=== PATIENT | female | born 1990 | race Caucasian/White ===

== ENCOUNTER 2024-11-23 11:52 | Outpatient (CLI) | payer OTHER, SELFPAY ==
[2024-11-23 12:18] LABS: Basophils Percent Auto 0.2 % (0.2-1.2); Eosinophils Absolute Auto 0.1 K/mm3 (0-0.3); Eosinophils Percent Auto 0.9 % (0-4.4); Hematocrit 34.2 % (37.0-47.0); Hemoglobin 10.8 g/dL (12.0-15.0); Immature Granulocyte Absolute 0.05 K/mm3 (0.00-0.031); Immature Granulocyte Percent A 0.8 % (0-0.5); Lymphocytes Absolute Auto 1.63 K/mm3 (0.9-3.2); Lymphocytes Percent Auto 25.4 % (18.3-44.2); Mean Corpuscular HGB Conc 31.6 g/dl (32-36); Mean Corpuscular Hemoglobin 27.7 pg (26-34); Mean Corpuscular Volume 87.7 fl (80-100); Mean Platelet Volume 11.8 fl (7.4-10.4); Monocytes Absolute Auto 0.3 K/mm3 (0.1-0.6); Monocytes Percent Auto 4.4 % (2.6-8.5); Neutrophils Absolute Auto 4.4 K/mm3 (1.3-6.7); Neutrophils Percent Auto 68.3 % (45.5-73.1); Platelet Count Result 186 k/mm3 (150-375); Red Cell Distribution Width 14.7 % (11.5-14.5); White Blood Count 6.4 K/mm3 (4.5-10.0)
[2024-11-23 13:06] LABS: Syphilis IgG/IgM Antibody Negative (Negative)
--- OUTSIDE RECORDS SUMMARY | 2024-11-23 13:32 | XMS_ITS | Clinical Summary ---
Author Organization [facility] Address [facility] [place] [address] Care Team Providers Care Motion Picture Set Grip Name Role Phone Darrin Rowell MD Primary Care Provider [phone] Allergies No known active allergies Medications sertraline (ZOLOFT) 100 MG tablet Take 100 mg by mouth every morning. 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 Pulse 83 08/20/2022 10:21 AM TOPOLOGY TEACHER Temperature 36.6 C (97.9 F) 08/20/2022 10:21 AM TOPOLOGY TEACHER Respiratory Rate 16 08/20/2022 10:21 AM TOPOLOGY TEACHER Oxygen Saturation 98% 08/20/2022 10:21 AM TOPOLOGY TEACHER Inhaled Oxygen Concentration - - Weight 65.8 kg (145 lb) 08/20/2022 10:21 AM TOPOLOGY TEACHER Height 152.4 cm (5') 08/20/2022 10:21 AM TOPOLOGY TEACHER Body Mass Index 28.32 08/20/2022 10:21 AM TOPOLOGY TEACHER Plan of Treatment Health Maintenance Due Date Last Done Comments Cervical Cancer Screening Pa p Smear (Age 30 to 64) Every 3 Years 1990 Annual Physical 1993 Hepatitis C 2008 DTaP, Tdap and Td Vaccines ( 1 - Tdap) 2009 Hepatitis B Vaccines (1 of 3 - 19+ 3-dose series) 2009 HPV Vaccines (2 - 3-dose SCD M series) 08/03/2019 07/06/2019 Cervical Cancer Screening Pa p with HPV Testing (Age 30 to 64) Every 5 Years 2020 Cervical Cancer Screening wi th HPV 2020 COVID-19 Vaccine (3 - 2023-2 5 season) 2024 09/13/2021, 08/16/2021 Meningococcal B Vaccine Aged Out No l onger eligible based on patient's age to complete this topic Meningococcal Vaccine Aged Out No joanna kim eligible based on patient's age to complete this topic Pneumococcal Vaccine: Pediatrics (0 to 5 Years) and At-Risk Patients (6 to 49 Years) Aged Out No longer eligible b ased on patient's age to complete this topic RSV Immunizations Under 20 Months Aged Out No longer eligible b ased on patient's age to complete this topic Insurance Care Teams Motion Picture Set Grip Relationship Specialty Start Date End Date Darrin Rowell MD [address] [place] [address] PCP - General FAMILY PRACTICE 08/20/22
--- OUTSIDE RECORDS SUMMARY | 2024-11-23 13:32 | XMS_ITS | Data Portability ---
Author Organization [facility] Address [address] [place] [address] Assessment Encounter Date Assessment Date Assessment LastModified by Organization Details LastModified Time 05/25/2021 05/25/2021 Sherrill barber Not available 05/25/2021 11:39:08 Plan of Treatment Reminders Order Date Submit Date Provider Last Modified By Organization Details Last Modified Time Details Appointments None recorded. Lab pap, IG + HPV, cervical - please use Z11.51 in addition to code above for HPV testing. [address] [facility], [address], [address] [address], [place], [address], 03:07:11 urinalysi s, dipstick 2020 elisabeth In-Office Order, Internal Use Only DO Not Attach Compendium DO Not Attach Compendium, Do Not Delete/merge, [id number] 16:49:28 bacterial vaginosis panel, vaginal [address] [facility] (Centralized Electronic Ordering - All Locations), Patient Can Go To The Location Of Their Choice, [id number] 16:11:09 culture, vaginal/r ectal, streptoco ccus group B [address] [facility] (Centralized Electronic Ordering - All Locations), Patient Can Go To The Location Of Their Choice, [id number] 16:11:10 CT + NG + TV, DNA, urine/swa b [address] [facility], [address] [facility], [address], [place], [address], 9 20:07:40 urinalysi s, dipstick [facility] Order, Internal Use Only DO Not Attach Compendium DO Not Attach Compendium, Do Not Delete/merge, [id number] 9 17:28:09 test, urine 2018 019 [facility] In-Office Order, Internal Use Only DO Not Attach Compendium DO Not Attach Compendium, Do Not Delete/merge, [id number] 9 17:28:09 pap, IG + HPV, cervical 2018 [facility], [address] [facility], [address], [place], [address], 0 14:40:47 pap, IG + HPV, cervical - please use Z11.51 in addition to code above for HPV testing. 2018 019 [place] [facility], [address], [address] [place] [address], [place], [address], 9 11:39:12 test, urine [address] In-Office Order, Internal Use Only DO Not Attach Compendium DO Not Attach Compendium, Do Not Delete/merge, [id number] 9 10:44:39 bacterial vaginosis panel, vaginal [address] [facility] (Centralized Electronic Ordering - All Locations), Patient Can Go To The Location Of Their Choice, 9 11:38:42 culture, vaginal/r ectal, streptoco ccus group B [address] [facility] (Centralized Electronic Ordering - All Locations), Patient Can Go To The Location Of Their Choice, 9 11:38:43 pap, IG + HPV, cervical [address] [facility], [address], [address], [place], [address], 8 14:13:21 urinalysi s, dipstick 2017 018 elisabeth In-Office Order, Internal Use Only DO Not Attach Compendium DO Not Attach Compendium, Do Not Delete/merge, [id number] 8 13:34:04 test, urine 2017 018 elisabeth In-Office Order, Internal Use Only DO Not Attach Compendium DO Not Attach Compendium, Do Not Delete/merge, [id number] 8 13:34:04 bacterial vaginosis + vaginitis panel, vaginal - Z11.3, Z20.[address] [facility], Maribel joelle Kwame, [address], [place], [address], 8 08:29:38 HSV (1+2) DNA, qual, PCR, unspecifi ed specimen - Z11.3, Z20.[address] [facility], [address] [place], [place] [address]yovana Kwame, [address], [place], [address], 8 08:29:39 culture, vaginal/r ectal, streptoco ccus group B - Z11.3, Z20.[address] [facility], [facility], [address], [place], [address], 8 08:29:39 Referral None recorded. Procedures None recorded. Surgeries None recorded. Imaging None recorded. Medication Orders sertralin e 100 mg tablet 2020 [address] [place] [facility] [address] [facility], [address] [place] [address], [address], 1 11:38:30 buspirone 10 mg tablet [address] [facility] [address] [facility], [address] [place] [address], [address], 1 11:38:29 multivita min tablet [address] [facility] [address] [facility], [address] [place] [address], [address], 03:32:24 Calcium with Vitamin D 600 mg-10 mcg (400 unit) tablet 2020 021 [facility] [address] [facility], [address] [place] [address], [address], 16:49:28 multivita min tablet 2018 019 [facility] [address] [facility], [address] [place] [address], [address], 9 17:28:13 Calcium with Vitamin D 600 mg-10 mcg (400 unit) tablet 2018 [address] [facility] [address], [address], 9 17:28:14 RepHresh vaginal gel 2018 [address] [facility] [address] [facility], [address] [place] [address], [address], 1 10:52:19 RepHresh Pro-B 2.5 billion cell capsule 2018 019 [facility] [address] [facility], [address] [place] [address], [address], 1 10:52:16 multivita min tablet 2018 0[address] [facility] [address], [address], 9 16:13:52 Calcium with Vitamin D 600 mg-10 mcg (400 unit) tablet 2018 019 [facility] [address], [address], 9 16:13:51 calcium 600 mg (as carbonate )-vitamin D3 20 mcg (800 unit) tablet 2017 018 [facility] [address], [address], 1 10:52:12 multivita min tablet 2017 018 [facility]FACE [facility] [address], [address], 8 12:00:46 Patient TargetsNo targets recorded. Patient Instructions Encounter Date Encounter Id Patient Instructions Last Modified By Organization Details Last Modified Time 01/29/2018 [id number] Patient advised to relax pubococcygeus muscle during intercourse. elisabeth Not available 01/29/2018 12:40:49 05/25/2021 [id number] anxiety disorder : care instructions elisabeth Not available 05/25/2021 11:38:20 Call back after the first of the month to discuss how anxiety medications are working for you. faniasserman Not available 05/25/2021 11:38:11 Reason for Referral None Reported. Results Created Date Observation Date Name Description Value Unit Range Abnormal Flag Note LastModifiedBy Organization Detail LastModifiedTime 05/25/2005/25/2021 urina lysis , dipst ick Leukocytes Negati ve Not Available In-Office Order Internal Use Only DO Not Attach Compendium DO Not Attach Compendium, Do Not Delete/merge, [id number] 05/25/2021 11:22:25 05/25/2005/25/2021 urina lysis , dipst ick Nitrite negati ve Not Available In-Office Order Internal Use Only DO Not Attach Compendium DO Not Attach Compendium, Do Not Delete/merge, [id number] 05/25/2021 11:22:25 05/25/2005/25/2021 urina lysis , dipst ick Urobilinogen .2 Not Available In-Of fice Order Internal Use Only DO Not Attach Compendium DO Not Attach Compendium, Do Not Delete/merge, [id number] 05/25/2021 11:22:25 05/25/2005/25/2021 urina lysis , dipst ick Protein Negati ve Not Available In-Office Order Internal Use Only DO Not Attach Compendium DO Not Attach Compendium, Do Not Delete/merge, [id number] 05/25/2021 11:22:25 05/25/2005/25/2021 urina lysis , dipst ick pH 8.0 Not Available In-Office Order Internal Use Only DO Not Attach Compendium DO Not Attach Compendium, Do Not Delete/merge, [id number] 05/25/2021 11:22:25 05/25/2005/25/2021 urina lysis , dipst ick Blood Non-He molyze d: Trace Not Available In-Office Order Internal Use Only DO Not Attach Compendium DO Not Attach Compendium, Do Not Delete/merge, [id number] 05/25/2021 11:22:25 05/25/2005/25/2021 urina lysis , dipst ick Specific [place] 1.020 Not Available In-Off ice Order Internal Use Only DO Not Attach Compendium DO Not Attach Compendium, Do Not Delete/merge, [id number] 05/25/2021 11:22:25 05/25/2005/25/2021 urina lysis , dipst ick Ketone Negati ve Not Available In-Office Order Internal Use Only DO Not Attach Compendium DO Not Attach Compendium, Do Not Delete/merge, [id number] 05/25/2021 11:22:25 05/25/2005/25/2021 urina lysis , dipst ick Bilirubin Negati ve Not Available In-Office Order Internal Use Only DO Not Attach Compendium DO Not Attach Compendium, Do Not Delete/merge, [id number] 05/25/2021 11:22:25 05/25/20 21 05/25/2021 urina lysis , dipst ick Glucose Negati ve Not Available In-Office Order Internal Use Only DO Not Attach Compendium DO Not Attach Compendium, Do Not Delete/merge, [id number] 05/25/2021 11:22:25 07/06/20 19 07/06/2019 pregn carmen test, urine HCG negati ve Not Available In-Office Order Internal Use Only DO Not Attach Compendium DO Not Attach Compendium, Do Not Delete/merge, [id number] 07/06/2019 16:44:45 07/06/20 19 07/06/2019 urina lysis , dipst ick Leukocytes Negati ve Not Available In-Office Order Internal Use Only DO Not Attach Compendium DO Not Attach Compendium, Do Not Delete/merge, [id number] 07/06/2019 16:37:03 07/06/20 19 07/06/2019 urina lysis , dipst ick Nitrite negati ve Not Available In-Office Order Internal Use Only DO Not Attach Compendium DO Not Attach Compendium, Do Not Delete/merge, [id number] 07/06/2019 16:37:03 07/06/20 19 07/06/2019 urina lysis , dipst ick Urobilinogen .2 Not Available In-Of fice Order Internal Use Only DO Not Attach Compendium DO Not Attach Compendium, Do Not Delete/merge, [id number] 07/06/2019 16:37:03 07/06/20 19 07/06/2019 urina lysis , dipst ick Protein Negati ve Not Available In-Office Order Internal Use Only DO Not Attach Compendium DO Not Attach Compendium, Do Not Delete/merge, [id number] 07/06/2019 16:37:03 07/06/20 19 07/06/2019 urina lysis , dipst ick pH 6.0 Not Available In-Office Order Internal Use Only DO Not Attach Compendium DO Not Attach Compendium, Do Not Delete/merge, [id number] 07/06/2019 16:37:03 07/06/20 19 07/06/2019 urina lysis , dipst ick Blood Modera te Not Available In-Office Order Internal Use Only DO Not Attach Compendium DO Not Attach Compendium, Do Not Delete/merge, [id number] 07/06/2019 16:37:03 07/06/20 19 07/06/2019 urina lysis , dipst ick Specific [place] 1.005 Not Available In-Off ice Order Internal Use Only DO Not Attach Compendium DO Not Attach Compendium, Do Not Delete/merge, [id number] 07/06/2019 16:37:03 07/06/20 19 07/06/2019 urina lysis , dipst ick Ketone Negati ve Not Available In-Office Order Internal Use Only DO Not Attach Compendium DO Not Attach Compendium, Do Not Delete/merge, [id number] 07/06/2019 16:37:03 07/06/20 19 07/06/2019 urina lysis , dipst ick Bilirubin Negati ve Not Available In-Office Order Internal Use Only DO Not Attach Compendium DO Not Attach Compendium, Do Not Delete/merge, [id number] 07/06/2019 16:37:03 07/06/20 19 07/06/2019 urina lysis , dipst ick Glucose Negati ve Not Available In-Office Order Internal Use Only DO Not Attach Compendium DO Not Attach Compendium, Do Not Delete/merge, [id number] 07/06/2019 16:37:03 01/30/20 18 01/29/2018 urina lysis , dipst ick Leukocytes Negati ve Not Available In-Office Order Internal Use Only DO Not Attach Compendium DO Not Attach Compendium, Do Not Delete/merge, [id number] 01/29/2018 13:01:43 01/30/20 18 01/29/2018 urina lysis , dipst ick Nitrite negati ve Not Available In-Office Order Internal Use Only DO Not Attach Compendium DO Not Attach Compendium, Do Not Delete/merge, [id number] 01/29/2018 13:01:43 01/30/20 18 01/29/2018 urina lysis , dipst ick Urobilinogen .2 Not Available In-Of fice Order Internal Use Only DO Not Attach Compendium DO Not Attach Compendium, Do Not Delete/merge, [id number] 01/29/2018 13:01:43 01/30/20 18 01/29/2018 urina lysis , dipst ick Protein Negati ve Not Available In-Office Order Internal Use Only DO Not Attach Compendium DO Not Attach Compendium, Do Not Delete/merge, 01/29/2018 13:01:43 01/30/20 18 01/29/2018 urina lysis , dipst ick pH 6.0 Not Available In-Office Order Internal Use Only DO Not Attach Compendium DO Not Attach Compendium, Do Not Delete/merge, 01/29/2018 13:01:43 01/30/20 18 01/29/2018 urina lysis , dipst ick Blood Hemoly zed: Trace Not Available In-Office Order Internal Use Only DO Not Attach Compendium DO Not Attach Compendium, Do Not Delete/merge, 01/29/2018 13:01:43 01/30/20 18 01/29/2018 urina lysis , dipst ick Specific [place] 1.020 Not Available In-Off ice Order Internal Use Only DO Not Attach Compendium DO Not Attach Compendium, Do Not Delete/merge, 01/29/2018 13:01:43 01/30/20 18 01/29/2018 urina lysis , dipst ick Ketone Negati ve Not Available In-Office Order Internal Use Only DO Not Attach Compendium DO Not Attach Compendium, Do Not Delete/merge, 01/29/2018 13:01:43 01/30/20 18 01/29/2018 urina lysis , dipst ick Bilirubin Negati ve Not Available In-Office Order Internal Use Only DO Not Attach Compendium DO Not Attach Compendium, Do Not Delete/merge, 01/29/2018 13:01:43 01/30/20 18 01/29/2018 urina lysis , dipst ick Glucose Negati ve Not Available In-Office Order Internal Use Only DO Not Attach Compendium DO Not Attach Compendium, Do Not Delete/merge, 01/29/2018 13:01:43 01/30/20 18 01/31/2018 pap, IG + HPV, cervi chandni diagnosis: COMMEN T NEGAT GREGORIO FOR INTRA EPITH ELIAL LESIO N AND CRUZ AWAD . Not Available [facility] ([facility] [address] [place], [address], 01/31/2018 14:13:21 01/30/20 18 01/31/2018 pap, IG + HPV, cervi chandni specimen adequacy: RUY Rock Satis facto ry for evalu ation . Endoc ervic al and/o r squam ous metap lasti c cells (endo cervi chandni compo nent) are prese nt. Not Available [facility] ([facility]) [address] [place], [address], 01/31/2018 14:13:21 01/30/20 18 01/31/2018 pap, IG + HPV, cervi chandni clinician provided ICD10: RUY Rock Z20.2 Z01.4 19 Not Available [facility] ([facility]) [address] [place], [address], 01/31/2018 14:13:21 01/30/20 18 01/31/2018 pap, IG + HPV, cervi chandni performed by: RUY Jamison , Cytot gaudencio mcintosh t (ASCP ) Not Available [facility] ([facility]) [address] [place], [address], 01/31/2018 14:13:21 01/30/20 18 01/31/2018 pap, IG + HPV, cervi chandni . . Not Available [facility] ([facility]) [address] [place], [address], 01/31/2018 14:13:21 01/30/20 18 01/31/2018 pap, IG + HPV, cervi chandni note: RUY Rock The Pap smear is a scree nettie test desig chanelle to aid in the detec tion of gabriela ligna nt and malig nant condi tions of the uteri ne cervi x. It is not a diagn ostic proce dure and shoul d not be used as the sole means of detec ting cervi chandni cance r. Both false -posi tive and false -nega tive repor ts do occur . Not Available [facility] ([facility]) [address] [facility], [place], [address], 01/31/2018 14:13:21 01/30/20 18 01/31/2018 pap, IG + HPV, cervi chandni test methodology: COMMEN T This liqui d based ThinP rep(R ) pap test was scree chanelle with the use of an image guide quinton cheatham. Not Available [facility] ([facility]) [address] [facility], [place], [address], 01/31/2018 14:13:21 01/30/20 18 01/31/2018 pap, IG + HPV, cervi chandni HPV aptima NEGATI VE negati ve This test detec ts fourt een high- risk HPV types (16/1 8/31/ 33/35 /39/4 5/ 51/52 /56/5 8/59/ 66/68 ) witho ut diffe renti ation . Not Available [facility] ([facility]) [address] [facility], [place], [address], 01/31/2018 14:13:21 01/30/20 18 02/07/2018 bacte rial vagin osis + vagin itis panel , vagin al atopobium vaginae LOW - 0 score Not Available [facility] ([facility]) [address] [place], [address], 02/07/2018 08:29:38 01/30/20 18 02/07/2018 bacte rial vagin osis + vagin itis panel , vagin al bvab 2 LOW - 0 score Not Available [facility] ([facility]) [address] [place], [address], 02/07/2018 08:29:38 01/30/20 18 02/07/2018 bacte rial vagin osis + vagin itis panel , vagin al megasphaera 1 LOW - 0 score Calcu late total score by addin g the 3 indiv idual bacte rial vagin osis (BV) marke r score s toget her. Total score is inter prete d as follo ws: Total score 0-1: Indic ates the absen ce of BV. Total score 2: Indet ermin ate for BV. Addit ional clini chandni data shoul d be evalu ated to estab vadim a diagn osis. Total score 3-6: Indic ates the prese nce of BV. This test was devel oped and its perfo rmanc e itzel cteri stics deter mined by [employer]. It has not been clear ed or appro claus by the Food and Drug Admin istra tion. The FDA has deter mined that such clear ance or appro francisca is not neces heather. Not Available [facility] ([facility]) [address] [place], [address], 02/07/2018 08:29:38 01/30/20 18 02/07/2018 bacte rial vagin osis + vagin itis panel , vagin al justin albicans, YISSEL NEGATI VE negati ve Not Available [facility] ([facility]) [address] [place], [address], 02/07/2018 08:29:38 01/30/20 18 02/07/2018 bacte rial vagin osis + vagin itis panel , vagin al justin glabrata, YISSEL NEGATI VE negati ve This test was devel oped and its perfo rmanc e itzel cteri stics deter mined by Amanda Huff [employer]. It has not been clear ed or appro claus by the Food and Drug Admin istra tion. The FDA has deter mined that such clear ance or appro francisca is not neces heather. Not Available [facility] ([facility]) [address] [place], [address], 02/07/2018 08:29:38 01/30/20 18 02/07/2018 bacte rial vagin osis + vagin itis panel , vagin al trich vag by YISSEL NEGATI VE negati ve Not Available [facility] ([facility]) [address] [facility], [place], [address], 02/07/2018 08:29:38 01/30/20 18 02/07/2018 bacte rial vagin osis + vagin itis panel , vagin al chlamydia trachomatis, YISSEL NEGATI VE negati ve Not Available [facility] ([facility]) [address] [facility], [place], [address], 02/07/2018 08:29:38 01/30/20 18 02/07/2018 bacte rial vagin osis + vagin itis panel , vagin al neisseria gonorrhoeae, YISSEL NEGATI VE negati ve Not Available [facility] ([facility]) [address] [facility], [place], [address], 02/07/2018 08:29:38 01/30/20 18 01/31/2018 HSV (1+2) DNA, qual, PCR, unspe cifie d speci men hsv 1 YISSEL NEGATI VE negati ve Not Available [facility] ([facility]) [address] [facility], [place], [address], 02/07/2018 08:29:39 01/30/20 18 01/31/2018 HSV (1+2) DNA, qual, PCR, unspe cifie d speci men hsv 2 YISSEL NEGATI VE negati ve Not Available [facility] ([facility]) [address] [place], [address], 02/07/2018 08:29:39 01/30/20 18 01/31/2018 cultu re, vagin al/re ctal, strep tococ cus group B strep gp B YISSEL NEGATI VE negati ve Cente rs for Disea se Contr ol and Preve ntion (CDC) and Ameri can Congr ess of Obste trici ans and Gynec ologi sts (ACOG ) guide lines for preve ntion of perin atal group B strep tococ chandni (GBS) disea se speci fy co-co llect ion of a vagin al and recta l swab speci men to maxim ize sensi tivit y of GBS detec tion. Per the CDC and ACOG, swabb ing both the lower vagin a and rectu m subst antia lly incre ases the yield of detec tion traci red with sampl ing the vagin a alone . Penic illin G, ampic illin , or cefaz dwain are indic ated for intra partu m proph ylaxi s of perin atal GBS colon izati on. Refle x susce ptibi lity testi ng shoul d be perfo rmed prior to use of clind amyci n only on GBS isola kenrick from penic illin -sandro rgic women who are consi dered a high risk for anaph ylaxi s. Treat ment with vanco mycin witho ut addit ional testi ng is warra nted if resis tance to clind amyci n is noted . Not Available [facility] ([facility]) [address] [facility], [place], [address], 02/07/2018 08:29:39 01/30/20 18 01/29/2018 pregn carmen test, urine HCG negati ve Not Available In-Office Order Internal Use Only DO Not Attach Compendium DO Not Attach Compendium, Do Not Delete/merge, [id number] 01/29/2018 13:01:45 04/28/20 19 04/30/2019 pap, IG + HPV, cervi chandni diagnosis: COMMEN T NEGAT GREGORIO FOR INTRA EPITH ELIAL LESIO N OR CRUZ AWAD . Not Available [facility] ([facility]) [address] [facility], [place], [address], 04/30/2019 11:39:12 04/28/20 19 04/30/2019 pap, IG + HPV, cervi chandni specimen adequacy: COMMEN T Satis facto ry for evalu ation . Endoc ervic al and/o r squam ous metap lasti c cells (endo cervi chandni compo nent) are prese nt. Not Available [facility] ([facility]) [address] [facility], [place], [address], 04/30/2019 11:39:12 04/28/20 19 04/30/2019 pap, IG + HPV, cervi chandni clinician provided ICD10: RUY Rock Z01.4 19 Z11.5 1 Z20.2 Not Available [facility] ([facility]) [address] [place], [address], 04/30/2019 11:39:12 04/28/20 19 04/30/2019 pap, IG + HPV, cervi chandni performed by: RUY rock, Cytot gaudencio mcintosh t (ASCP ) Not Available [facility] ([facility]) [address] [place], [address], 04/30/2019 11:39:12 04/28/2004/30/2019 pap, IG + HPV, cervi chandni . . Not Available [facility] ([facility]) [address] [place], [address], 04/30/2019 11:39:12 04/28/2004/30/2019 pap, IG + HPV, cervi chandni note: RUY Rock The Pap smear is a scree nettie test desig chanelle to aid in the detec tion of gabriela ligna nt and malig nant condi tions of the uteri ne cervi x. It is not a diagn ostic proce dure and shoul d not be used as the sole means of detec ting cervi chandni cance r. Both false -posi tive and false -nega tive repor ts do occur . Not Available [facility] ([facility]) [address] [place], [address], 04/30/2019 11:39:12 04/28/2004/30/2019 pap, IG + HPV, cervi chandni test methodology: RUY Rock This liqui d based ThinP rep(R ) pap test was scree chanelle with the use of an image guide quinton cheatham. Not Available [facility] ([facility]) [address] [place], [address], 04/30/2019 11:39:12 04/28/20 19 04/30/2019 pap, IG + HPV, cervi chandni HPV aptima POSITI VE negati ve abnormal This test detec ts fourt een high- risk HPV types (16/1 8/31/ 33/35 /39/4 5/ 51/52 /56/5 8/59/ 66/68 ) witho cedric peguero . Not Available [facility] ([facility]) [address] [place], [address], 04/30/2019 11:39:12 04/28/20 19 04/30/2019 bacte rial vagin osis panel , vagin al chlamydia trachomatis, YISSEL POSITI VE negati ve abnormal Not Available [facility] ([facility]) [address] [place], [address], 05/01/2019 11:38:42 04/28/20 19 04/30/2019 bacte rial vagin osis panel , vagin al neisseria gonorrhoeae, YISSEL NEGATI VE negati ve Not Available [facility] ([facility]) [address] [place], [address], 05/01/2019 11:38:42 04/28/20 19 05/01/2019 bacte rial vagin osis panel , vagin al atopobium vaginae LOW - 0 score Not Available [facility] ([facility]) [address] [place], [address], 05/01/2019 11:38:42 04/28/2005/01/2019 bacte rial vagin osis panel , vagin al bvab 2 LOW - 0 score Not Available [facility] ([facility]) [address] [place], [address], 05/01/2019 11:38:42 04/28/20 19 05/01/2019 bacte rial vagin osis panel , vagin al megasphaera 1 LOW - 0 score Calcu late total score by carlos chapman the 3 indiv idual bacte rial vagin osis (BV) marke r score s toget her. Total score is inter prete d as follo ws: Total score 0-1: Indic ates the absen ce of BV. Total score 2: Indet ermin ate for BV. Addit ional clini chandni data shoul d be evalu ated to estab vadim a diagn osis. Total score 3-6: Indic ates the prese nce of BV. This test was devel oped and its perfo rmanc e itzel cteri stics deter mined by Amanda Huff [employer]. It has not been clear ed or appro claus by the Food and Drug Admin istra tion. The FDA has deter mined that such clear ance or appro francisca is not neces heather. Not Available [facility] ([facility]) [address] [place], [address], 05/01/2019 11:38:42 04/28/2005/01/2019 bacte rial vagin osis panel , vagin al justin albicans, YISSEL NEGATI VE negati ve Not Available [facility] ([facility]) [address] [place], [address], 05/01/2019 11:38:42 04/28/2005/01/2019 bacte rial vagin osis panel , vagin al justin glabrata, YISSEL NEGATI VE negati ve This test was devel oped and its perfo rmanc e itzel cteri stics deter mined by Amanda Huff DBA [employer]. It has not been clear ed or appro claus by the Food and Drug Admin istra tion. The FDA has deter mined that such clear ance or appro francisca is not neces heather. Not Available [facility] ([facility]) [address] [place], [address], 05/01/2019 11:38:42 04/28/2005/01/2019 bacte rial vagin osis panel , vagin al trich vag by YISSEL NEGATI VE negati ve Not Available [facility] ([facility]) [address] [facility], [place], [address], 05/01/2019 11:38:42 04/28/2005/01/2019 bacte rial vagin osis panel , vagin al hsv 1 YISSEL NEGATI VE negati ve Not Available [facility] ([facility]) [address] [facility], [place], [address], 05/01/2019 11:38:42 04/28/2005/01/2019 bacte rial vagin osis panel , vagin al hsv 2 YISSEL NEGATI VE negati ve Not Available [facility] ([facility]) [address] [facility], [place], [address], 05/01/2019 11:38:42 04/28/2004/30/2019 cultu re, vagin al/re ctal, strep tococ cus group B strep gp B YISSEL POSITI VE negati ve abnormal Cente rs for Disea se Contr ol and Preve ntion (CDC) and Ameri can Congr ess of Obste trici ans and Gynec ologi sts (ACOG ) guide lines for preve ntion of perin atal group B strep tococ chandni (GBS) disea se speci fy co-co llect ion of a vagin al and recta l swab speci men to maxim ize sensi tivit y of GBS detec tion. Per the CDC and ACOG, swabb ing both the lower vagin a and rectu m subst antia lly incre ases the yield of detec tion traci red with sampl ing the vagin a alone . Penic illin G, ampic illin , or cefaz dwain are indic ated for intra partu m proph ylaxi s of perin atal GBS colon izati on. Refle x susce ptibi lity testi ng shoul d be perfo rmed prior to use of clind amyci n only on GBS isola kenrick from penic illin -sandro rgic women who are consi dered a high risk for anaph ylaxi s. Treat ment with vanco mycin witho ut addit ional testi ng is warra nted if resis tance to clind kelsey n is noted . Not Available [facility] ([facility]) [address] [place], [address], 05/01/2019 11:38:43 05/01/20 19 05/01/2019 pregn carmen test, urine HCG negati ve Not Available In-Office Order Internal Use Only DO Not Attach Compendium DO Not Attach Compendium, Do Not Delete/merge, [id number] 04/28/2019 16:21:31 07/07/20 19 07/08/2019 CT + NG + TV, DNA, urine /swab chlamydia by YISSEL NEGATI VE negati ve Not Available [facility] ([facility]) [address] [facility], [place], [address], 07/08/2019 20:07:40 07/07/20 19 07/08/2019 CT + NG + TV, DNA, urine /swab gonococcus by YISSEL NEGATI VE negati ve Not Available [facility] ([facility]) [address] [facility], [place], [address], 07/08/2019 20:07:40 07/07/20 19 07/08/2019 CT + NG + TV, DNA, urine /swab trich vag by YISSEL NEGATI VE negati ve Not Available [facility] ([facility]) [address] [place], [address], 07/08/2019 20:07:40 05/25/20 21 05/29/2021 IGP, APTIM A HPV diagnosis: Commen t NEGAT GREGORIO FOR INTRA EPITH ELIAL LESIO N OR CRUZ AWAD . Not Available [facility] ([facility]) [address] [place], [address], 05/30/2021 03:07:10 05/25/20 21 05/29/2021 IGP, APTIM A HPV specimen adequacy: Commen t Satis facto ry for evalu ation . No endoc ervic al compo nent is ident ified . Not Available [facility] ([facility]) [address] [place], [address], 05/30/2021 03:07:10 05/25/2005/29/2021 IGP, APTIM A HPV clinician provided ICD10: Ruy rock Z01.4 19 Z11.5 1 Not Available [facility] ([facility]) [address] [place], [address], 05/30/2021 03:07:10 05/25/2005/29/2021 IGP, APTIM A HPV performed by: Ruy palmer, Reynaldo rokc (ASCP ) Not Available [facility] ([facility]) [address] [place], [address], 05/30/2021 03:07:10 05/25/2005/29/2021 IGP, APTIM A HPV . . Not Available [facility] ([facility]) [address] [place], [address], 05/30/2021 03:07:10 05/25/2005/29/2021 IGP, APTIM A HPV note: Ruy rock The Pap smear is a scree nettie test desig chanelle to aid in the detec tion of gabriela ligna nt and malig nant condi tions of the uteri ne cervi x. It is not a diagn ostic proce dure and shoul d not be used as the sole means of detec ting cervi chandni cance r. Both false -posi tive and false -nega tive repor ts do occur . Not Available [facility] ([facility]) [address] [place], [address], 05/30/2021 03:07:10 05/25/2005/29/2021 IGP, APTIM A HPV test methodology: Ruy rock This liqui d based ThinP rep(R ) pap test was scree chanelle with the use of an image guide d systartis m. Not Available [facility] ([facility]) [address] [facility], [place], [address], 05/30/2021 03:07:10 05/25/2005/29/2021 IGP, APTIM A HPV HPV aptima Positi ve negati ve abnormal This nucle ic acid ampli ficat ion test detec ts fourt een high- risk HPV types (16,1 8,31, 33,35 ,39,4 5,51, 52,56 ,58,5 9,66, 68) witho ut diffe renti ation . Not Available [facility] ([facility]) [address] [facility], [place], [address], 05/30/2021 03:07:10 05/25/2005/30/2021 NUSWA B VG+, HSV atopobium vaginae Low - 0 score Not Available [facility] ([facility]) [address] [facility], [place], [address], 06/01/2021 16:11:09 05/25/2005/30/2021 NUSWA B VG+, HSV bvab 2 Low - 0 score Not Available [facility] ([facility]) [address] [facility], [place], [address], 06/01/2021 16:11:09 05/25/2005/30/2021 NUSWA B VG+, HSV megasphaera 1 Low - 0 score Calcu late total score by carlos g the 3 indiv idual bacte rial vagin osis (BV) marke r score s toget her. Total score is inter prete d as follo ws: Total score 0-1: Indic ates the absen ce of BV. Total score 2: Indet ermin ate for BV. Addit ional clini chandni data shoul d be evalu ated to estab vadim a diagn osis. Total score 3-6: Indic ates the prese nce of BV. This test was devel oped and its perfo rmanc e itzel cteri stics deter mined by [employer]. It has not been clear ed or appro claus by the Food and Drug Admin istra tion. Not Available [facility] ([facility]) [address] [place], [address], 06/01/2021 16:11:09 05/25/2005/30/2021 NUSWA B VG+, HSV justin albicans, YISSEL Negati ve negati ve Not Available [facility] ([facility]) [address] [place], [address], 06/01/2021 16:11:09 05/25/2005/30/2021 NUSWA B VG+, HSV justin glabrata, YISSEL Negati ve negati ve Not Available [facility] ([facility]) [address] [place], [address], 06/01/2021 16:11:09 05/25/2005/31/2021 NUSWA B VG+, HSV hsv 1 YISSEL Negati ve negati ve Not Available [facility] ([facility]) [address] [place], [address], 06/01/2021 16:11:09 05/25/2005/31/2021 NUSWA B VG+, HSV hsv 2 YISSEL Negati ve negati ve Not Available [facility] ([facility]) [address] [place], [address], 06/01/2021 16:11:09 05/25/2006/01/2021 NUSWA B VG+, HSV trich vag by YISSEL Negati ve negati ve Not Available [facility] ([facility]) [address] [place], [address], 06/01/2021 16:11:09 05/25/2006/01/2021 NUSWA B VG+, HSV chlamydia trachomatis, YISSEL Negati ve negati ve Not Available [facility] ([facility]) [address] [place], [address], 06/01/2021 16:11:09 05/25/2006/01/2021 NUSWA B VG+, HSV neisseria gonorrhoeae, YISSEL Negati ve negati ve Not Available [facility] ([facility]) [address] [facility], [place], [address], 06/01/2021 16:11:09 05/25/2005/27/2021 STREP GP B YISSEL strep gp B YISSEL Negati ve negati ve Cente rs for Disea se Contr ol and Preve ntion ([facility]) and Alexandra can Congr ess of Obste trici ans and Gynec ologi sts (ACOG ) guide lines for preve ntion of perin atal group B strep tococ chandni (GBS) disea se speci fy co-co llect ion of a vagin al and recta l swab speci men to maxim ize sensi tivit y of GBS detec tion. Per the CDC and ACOG, swabb ing both the lower vagin a and rectu m subst antia lly incre ases the yield of detec tion traci red with sampl ing the vagin a alone . Penic illin G, ampic illin , or cefaz dwain are indic ated for intra partu m proph ylaxi s of perin atal GBS colon izati on. Refle x susce ptibi lity testi ng shoul d be perfo rmed prior to use of clind amyci n only on GBS isola kenrick from penic illin -sandro rgic women who are consi dered a high risk for anaph ylaxi s. Treat ment with vanco mycin witho ut addit ional testi ng is warra nted if resis tance to clind amyci n is noted . Not Available [facility] ([facility]) [address] [facility], [place], [address], 06/01/2021 16:11:10 Result Notes None recorded. Problems No Known Problems Procedures Surgical History Date Name Laterality Status Provider Name and Address Organization Details Recorded Time Date of Last Pap Smear completed Karine Iraheta [place] - [facility] 05/25/2021 10:50:34 1 Caesarean Section completed Carline Brown MA [place] - [facility] 01/29/2018 11:52:49 Imaging Results None recorded. Procedure Notes None recorded. Medical Equipment None Reported. Allergies Allergen ID Allergen Name Allergen Category Reaction Reaction Severity Criticality Documentation Date Start Date Code Code System Note Provider Name and Address Organization Details Recorded Time 948564 Tamiflu medicatio n rash Not available Not available 04/28/2019 63260 7 RxNorm Not Available Not Available Not Available Medications Name Sig Start Date Stop Date Status Note LastModified by Organization Details LastModified Time multivitami n tablet Take 1 tablet every day by oral route. 2020 active Not Available Not Available Not Avai lable azithromyci n 250 mg tablet TAKE 2 TABLETS (500 MG TOTAL) BY ORAL ROUTE ONCE DAILY FOR 1 DAY THEN 1 TABLET (250 MG) BY ORAL ROUTE ONCE DAILY FOR 4 DAYS 07/06 completed Not Available Not Available Not Available sertraline 100 mg tablet Take 1 tablet every day by oral route in the morning. 2020 active Not Available Not Available Not Avai lable buspirone 10 mg tablet Take 1 tablet twice a day by oral route. 2020 active Not Available Not Available Not Avai lable diazepam 10 mg tablet TAKE 1 TABLET BY MOUTH AT BEDTIME THEN 1 TABLET 1 HOUR BEFORE APPOINTME NT 05/25 completed Not Available Not Available Not Available RepHresh vaginal gel Insert 1 g as needed by vaginal route. 05/25 completed Not Available Not Available Not Available Calcium with Vitamin D 600 mg-10 mcg (400 unit) tablet Take 1 tablet twice a day by oral route. 2020 active Not Available Not Available Not Avai lable RepHresh Pro-B 2.5 billion cell capsule Take 1 capsule every day by oral route. 05/25 completed Not Available Not Available Not Available calcium 600 mg (as carbonate)- vitamin D3 20 mcg (800 unit) tablet Take 1 tablet twice a day by oral route. 05/25 completed Not Available Not Available Not Available Vitals Date Recorded Body height Body mass index (BMI) Body weight Systolic blood pressure Diastolic blood pressure Provider Name and Address Organization Details Last Updated DateTime 01/29/2018 152.4 cm 28.1 kg/m2 35498.3 g 118 mm[Hg] 80 mm[Hg] Carline Brown MA [facility] 8 11:53:25 Date Recorded Body weight Body mass index (BMI) Body height Systolic blood pressure Diastolic blood pressure Provider Name and Address Organization Details Last Updated DateTime 04/28/2019 22747.52 g 27.5 kg/m2 152.4 cm 118 mm[Hg] 72 mm[Hg] Kory Alarcon [facility] 9 15:58:01 Date Recorded Body height Body mass index (BMI) Body weight Systolic blood pressure Diastolic blood pressure Provider Name and Address Organization Details Last Updated DateTime 07/06/2019 152.4 cm 27.7 kg/m2 44908.12 g 120 mm[Hg] 72 mm[Hg] Karine Iraheta MA [facility] 9 16:38:37 Date Recorded Body weight Systolic blood pressure Diastolic blood pressure Provider Name and Address Organization Details Last Updated DateTime 05/25/2021 33494.49 g 122 mm[Hg] 70 mm[Hg] Karine Iraheta MA [facility] 05/25/2021 10:49:23 Social History Question Answer Notes LastModified by Organizat ion Details LastModified Time Tobacco Smoking Status Never Smoker Carline Brown MA [facility], [facility] 01/29/2018 11:50:53 Do You Have An Advance Directive? No [email or web address] Information not available 01/29/2018 What Is Your Level Of Alcohol Consumption? Occasional [email or web address] Information not available 01/29/2018 Is Blood Transfusion Acceptable In An Emergency? Yes [email or web address] Information not available 01/29/2018 What Is Your Level Of Caffeine Consumption? Moderate [email or web address] Information not available 01/29/2018 How Much Tobacco Do You Chew? None [email or web address] Information not available 01/29/2018 Are You Currently Employed? Yes [email or web address] Information not available 01/29/2018 What Type Of Diet Are You Following? REGULAR [email or web address] Information not available 01/29/2018 Which Illicit Or Recreational Drugs Have You Used? None [email or web address] Information not available 01/29/2018 Do You Or Have You Ever Used E-cigarettes Or Vape? 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 With Others [email or web address] Information not available 01/29/2018 What Was The Date Of Your Most Recent Tobacco Screening? 05/25/2021 Information not available 05/25/2021 How Many Children Do You Have? 1 [email or web address] Information not available 01/29/2018 Performs Monthly Self-breast Exam? No [email or web address] Information no t available 01/29/2018 Do You Use Protection During Sex? Always [email or web address] Information not available 01/29/2018 What Is Your Relationship Status? [email or web address] Information not available 01/29/2018 Seat Belts Used Routinely Yes [email or web address] Information not available 01/29/2018 Are You Sexually Active? Yes [email or web address] Information not available 01/29/2018 Do You Or Have You Ever Used Smokeless Tobacco? Never Used Smokeless Tobacco Information not available 07/07/2019 How Much Tobacco Do You Smoke? No Information not available 07/07/2019 General Stress Level Medium [email or web address] Information not available 01/29/2018 Do You Use Sunscreen Routinely? No [email or web address] Information not available 01/29/2018 On What Date Was Tobacco Cessation Counseling Provided? 05/25/2021 Information not available 05/25/2021 How Many Years Have You Smoked Tobacco? 0 Information not available 07/07/2019 Sex: Unknown Functional Status Question Answer Note LastModified by Organizat ion Details LastModified Time What is your exercise level? Occasional [email or web address] Information not available 01/29/2018 Mental Status None recorded. Family History Relationship Description Onset Age of this Age Resolved Age Notes LastModified by Organization Details LastModified Time Mother Heart disease diabet ic [email or web address] Not available 01/29/2018 11:50:46 Medical History Condition Response Anxiety Disorder Y Diabetes N Ovarian Cancer N Muscle, Joint, or Bone Problems N Blood Transfusions N Seizures/Epilepsy N Polyps N Breast Cancer N Kidney or Bladder Problems N Thyroid Problems N Lung Disease N Depression Y Asthma N Breast Problem N Endometriosis N Liver Disease N Pre-Eclampsia N Osteoporosis N Gynecological History Statement/Question Response Abnormal Pap Y Flow Moderate STIs/STDs Y HPV Vaccine Y Duration of Flow (days) 4 Age at Menarche 10 Current Control Method BCPs Age at First Child 20 Frequency of Cycle (Q days) 30 Sexually Active? Y Menses Monthly Y Date of Last Pap Smear 05/25/2021 Sexual Problems? Y LMP Definite Desired Control Method BCPs Obstetrics History GPAL:G 1 P 1 0 0 1 Type Value Multiple Births 0 Full Term 1 Induced 0 Spontaneous 0 Premature 0 Living 1 Ectopics 0 Total 1 Immunizations Vaccine Type Date Status Note Provider Nam e and Address Organization Details Recorded Time HPV9 9 completed Not Available [facility] 08/22/2019 02:47:23 Influenza, split virus, quadrivalent, preservative 9 completed Not Available [facility] 08/22/2019 02:41:29 Past Encounters Encounter ID Performer Location Encounter Start Date Encounter Closed Date Diagnosis/Indication Diagnosis SNOMED-CT Code Diagnosis ICD10 Code Diagnosis Note [id number] Kory Baez ([employer]) [address] [place] [phone] 0 01/29/2018 10:55:47 01/29/2018 12:26:52 Gynecologic examination 54746240 Z01.419 Exposure t o sexually transmissible disorder 599475570 Z20.2 Family britt nning surveillance 365414187 Z30.09 [id number] [facility] [address] [place] [phone] 04/28/2019 15:15:31 04/29/2019 14:54:51 Gynecologic examination 18633522 Z01.419 Z11.51 Exposure t o sexually transmissible disorder 846188336 Z20.2 Vaginitis 09354122 N76.0 [id number] Kory Baez ([employer]) [address] [place] [phone] 0 07/06/2019 16:15:50 07/07/2019 09:31:54 Chlamydial infection 395828228 A74.9 Family britt nning surveillance 314437128 Z30.09 HPV - Paulette n papillomavirus test positive 012985449 R87.101 [id number] Kory Baez ([employer]) [address] [place] [address] 05/25/2021 10:36:56 05/29/2021 07:57:59 Gynecologic examination 16938582 Z01.[address] reptococcus carrier 9443636807 103 Z22.330 Chlamydial infection 105 806689 A74.9 Exposure t o sexually transmissible disorder 147726904 Z20.2 Generalize d anxiety disorder 18549394 F41.1 Health Concerns Section Related Observation LastModified by Organization Detai ls LastModified Time None Recorded Concern Status LastModified by Organization Details LastModified Time None Recorded Advance Directives Directive N: Payers Encounter Date Sequence Insurance Name Policy Number Policy [place] Covered Member ID [place] Member ID Guarantor Name 01/29/2018 1 [place] [id number] Nikki Carlozzi [id number] Nikki Carlozzi 04/28/2019 1 [place] [id number] Nikki Carlozzi [id number] Nikki Carlozzi 07/06/2019 1 *SELF PAY* Ni Carlozzi 05/25/2021 1 [place] [id number] Franklin Zuniga [id number] Nikki Carlozzi Notes Date Note Type Note Provider Name and Address Organization Details Recorded Time 01/29/2018 text/html Annual GYNReport ed bypatient.History: no change in interval history; planning in the near future Menstrual cycle:Normal menses Urinary symptoms:No hematuria; No incontinence Vulva:No genital lesion Vagina:Normal vaginal discharge Breast:No breast pain; No breast lump; No nipple discharge Current Contraception:Mccracken gamous relationship; Condoms Sexual complaints:Normal libido;Sexual complaints;Pain during intercourse Menopausal Symptoms:No menopausal symptoms; Normal vaginal lubrication Psychological symptoms:No depression; No anxiety; No PMDD Preventive measures:Encourage self breast examination; Encourage regular exercise; Encourage no tobacco use; Encourage regular mammograms starting age 40; Followed with Q3 year pap smear and high risk HPV typing 27y CF presents for WWE with dyspareunia. ZION Troy - [facility] 01/29/2018 17:46:38 04/28/2019 text/html problems-FemaleRep orted bypatient.Associat ed Symptoms:no flank pain; no blood in the urine; no pain during urination; no vaginal discharge; no urgency; vaginal itchiness and irritation, lower abdominal discomfort 27y CF presents for lower abdominal discomfort and vaginal irritation/itchine ss. Patient was treated for UTI in 12/2018 with three different antibiotics over the course of 3 months. Symptoms resolved in 02/2019, but returned yesterday. Pt endorses bladder irritation and vaginal itchiness and states it feels like she has a yeast infection. Denies hematuria and vaginal discharge. Last pap smear 01/29/2018 normal. ZION Troy 04/28/2019 21:37:33 07/06/2019 text/html problems-FemaleRep orted bypatient.Onset/Ti carlo:better Context:no sexual dysfunction; heterosexual; vaginal intercourse;sexual ly active;known exposure to STD;prior history of STDs;unprotected intercourse Associated Symptoms:no flank pain; no jaundice; no blood in the urine; no pain during urination; no vaginal discharge; no urgency Patient is 28 yo WF here for KANA for chlamydia that she tested positive for on 04.28.19. She states she took all of her medication and is having no problems at this time. ZION Troy 07/08/2019 15:10:41 05/25/2021 text/html Annual GYNReport ed bypatient.Menstrua l cycle:Normal menses Urinary symptoms:No hematuria; No incontinence Vulva:No genital lesion Vagina:Normal vaginal discharge Breast:No breast pain; No breast lump; No nipple discharge Sexual complaints:No sexual complaints; No pain during intercourse; Normal libido Menopausal Symptoms:No menopausal symptoms; Normal vaginal lubrication Psychological symptoms:No depression;Anxiety Patient is 30 yo WF presents for well-woman exam. Past medical history of HPV positive, history of chlamydial infection, GBS carrier. ZION Troy 05/25/2021 13:41:25 OBGyn Episode Ob Episode Information Episode Created Date Number of Fetuses Patient Bloodtype Patient rh Status Prepregnancy Weight lbs Domestic Partner Domestic Partner Phone Father Name Associate Embalmer/Funeral Director Status 01/30/20 18 1 CLOSED Fetus Data First Name Last Name Admitted to NICU Weight (g) Sex Living Outcome Pediatric Complications Fetus ID Race Codes Race Delivery Type 2778.25 1 F Full Term [id number] Adan Calculation Initial Adan Date Initial Exam Date Initial Exam Provider Initial Ultrasound Date Last Menstrual Period Date Ultra Sound Weeks Gestation 0 Eighteen To Twenty Week Adan Update Ultra Sound Date Fundal Height At Umbil Quickening Date Ultra Sound Latest Weeks Gestation Final Adan Confirmed By Final Adan Confirmed Date Final Adan Date Ultra Sound Latest Days Gestation 0 0 Menstrual History Last Menstrual Date Menses Monthly On Bcp Conception Prior Menses Frequency Hcg Plus Date Menarche Onset Age Delivery Information Delivery Date Delivery Type Labor Anesthesia Weeks Gestation Incision Type Labor Labor Length Hrs Delivered By Post Complications Tubal Sterilization Discharge Date Comments 1 Regional-Sp inal 40 Discharge Information Feeding Method Contraceptive Method Maternal HG B and HCT Levels
== END 2024-11-23 11:53 | disposition home or self-care (01) ==
PROVIDERS: Visit Provider Obstetrics & Gynecology
DX: Z78.9 Other specified health status (principal)
CPT/HCPCS: 36415; 85025; 86593; 86850; 86900; 86901

== ENCOUNTER 2024-11-25 05:27 | Inpatient (IN) | payer OTHER, SELFPAY ==
[2024-11-25] VITALS (61 sets, daily range): BP systolic 87–129; BP diastolic 39–84; PULSE 63–101; RESP 12–16; TEMP 36.3–36.9; O2SAT 95–100; BMI 33.7
--- OUTSIDE RECORDS SUMMARY | 2024-11-25 05:31 | XMS_ITS | Data Portability ---
Author Organization 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 Discussed plan. Not available 10/22/2024 10:20:36 11/05/2024 11/05/2024 Patient is ___weeks . Discussed plan. Not available 11/05/2024 12:16:41 11/12/2024 11/12/2024 Patient is ___weeks . Discussed plan. Not available 11/12/2024 09:42:15 11/19/2024 11/19/2024 Patient is ___weeks . Discussed plan. Not available 11/19/2024 11:40:50 Plan of Treatment Reminders Order Date Submit Date Provider Last Modified By Organization Details Last Modified Time Details Appointments SURG CSection 2024 07:30A Richard JESUS MD Not available Not available Not available SURG POST OP 2024 01:00P Richard JEUSS MD Not available Not available Not available Lab None recorded. Referral None recorded. Procedures None recorded. Surgeries section (SURG) 2024 025 [id number] [facility], [address] [address], [place], [address], 11/10/2024 14:25:01 Imaging US, obstetric , follow-up 2024 025 [email or web address] [place], [address], [place], [address], 10/22/2024 20:59:59 Medication Orders None recorded. Patient TargetsNo targets recorded. Patient InstructionsNo instructions recorded. Reason for Referral None Reported. Results Created Date Observation Date Name Description Value Unit Range Abnormal Flag Note LastModifiedBy Organization Detail LastModifiedTime 11/06/1911/05/2024 CULTU RE: GROUP B STREP SCREE N, REFLE X SUSCE PTIBI LITY result report SEE RESULT S BELOW Test: Cultu re: Group B Strep , Refle x Susce ptibi lity ([facility]/ [facility]/K [facility] ) Speci men Sourc e: Vagin a/Rec amirah Speci men Type: Vagin al/Re ctal Speci men Date: 1310 Resul t Date: 1408 Resul t Statu s: Final resul t Abnor mal: No Resul ting Lab: [facility] [address] [facility] [address] Tel: CULTU RE ----- ----- ----- --- No Group B strep isola griselda at 2 days (cheryl ctive broth enhan cemen t) Not Available [facility] (Lab) [address] [facility], [place], [address], 11/08/2024 15:11:18 09/24/19 25 09/24/2024 US, obste tric, trans vagin al No observ ation record ed. [email or web address], [place], [address], 09/24/2024 10:00:24 09/24/19 25 09/24/2024 US, obste tric, trans vagin al No observ ation record ed. [email or web address], [place], [address], 09/24/2024 13:03:53 10/23/19 25 10/22/2024 US, obste tric, follo w-up No observ ation record ed. [email or web address] [place] [address], [place], [address], 10/22/2024 13:56:25 10/23/19 25 10/22/2024 US, obste tric, follo w-up No observ ation record ed. [address], [place], [address], 10/26/2024 17:31:07 Result Notes None recorded. Problems Name Problem SNOMED Code Status Onset Date Resolution Date Notes Provider Name and Address Organization Details Recorded Time 14326738 Active 2023 Dionne banuelos, [facility] 4 10:15:14 Deliverie s by [id number] Active TO REPEAT Juan Jseus MD [address], [place], [address], [facility] 5 10:31:39 Gastric reflux 465922297 Active prescribe d Protonix 40 mg Juan Jesus MD [address], [place], [address], [facility] 4 13:06:07 Low lying placenta 444647301 Active Rpt us , pelvic rest Juan Jesus MD [address], [place], [address], [facility] 5 12:03:47 Blood glucose outside reference range 451472688 Active failed 1hr gtt (fasted for 12hrs) per Dr Ann Marie omer checking BS JASIEL Lubin [facility], [facility] 5 13:21:55 Blood glucose outside reference range 262231012 Active failed 1hr gtt (fasted for 12hrs) per Dr Ann Marie omer checking CARLOS ALBERTO Lubin [facility] 13:21:55 Problem Notes None recorded. Procedures Surgical History Date Name Laterality Status Provider Name and Address Organization Details Recorded Time 11/08/19 23 Date of Last Pap Smear completed Madonna [facility] 05/07/2024 11:57:36 05/16/20 22 Colposcopy completed Jazmín Hicks MD [address], [place], [address], [facility] 05/18/2022 10:26:25 03/23/20 11 delivery completed [facility] 05/07/2024 12:01:52 Imaging Results Imaging Date Name Status LastModified by Organization Details LastModified Time 09/24/2024 US, obstetric, transvaginal completed [email or web address] [place] [address], [place], [address], 09/24/2024 10:00:24 09/24/2024 US, obstetric, transvaginal completed [email or web address], [place], [address], 09/24/2024 13:03:53 10/22/2024 US, obstetric, follow-up completed [email or web address], [place], [address], 10/22/2024 13:56:25 10/22/2024 US, obstetric, follow-up completed [address], [place], [address], 10/26/2024 17:31:07 Procedure Notes None recorded. Medical Equipment None Reported. Allergies Allergen ID Allergen Name Allergen Category Reaction Reaction Severity Criticality Documentation Date Start Date Code Code System Note Provider Name and Address Organization Details Recorded Time 38116 Tamiflu medicatio n rash mild Not available 05/07/2024 78644 [id number] [facility]Norm [facility] 4 11:55:37 Medications Name Sig Start Date Stop Date Status Note LastModified by Organization Details LastModified Time cyclobenzap rine 10 mg tablet TAKE 1 TABLET BY MOUTH EVERY 8 HOURS 04/17 completed Not Available Not Available Not Available amoxicillin 500 mg capsule TAKE 1 CAPSULE BY MOUTH TWICE A DAY 05/07 completed Not Available Not Available Not Available FreeStyle Test strips check blood sugars QID 11/05 completed Not Available Not Available Not Available metronidazo le 0.75 % (37.5 mg/5 gram) vaginal gel INSERT 1 APPLICATO RFUL VAGINALLY EVERY DAY FOR 5 DAYS 12/05 completed Not Available Not Available Not Available prednisone 20 mg tablet TAKE 1 TABLET BY MOUTH TWICE A DAY FOR 5 DAYS 04/17 completed Not Available Not Available Not Available sertraline 100 mg tablet TAKE 1 TABLET BY MOUTH EVERY DAY IN THE MORNING 05/07 completed Not Available Not Available Not Available Accu-Chek Softclix Lancets USE TO TEST BLOOD SUGAR 4 TIMES A DAY 10/08 completed Not Available Not Available Not Available metronidazo le 500 mg tablet TAKE 1 TABLET BY MOUTH TWICE A DAY FOR 7 DAYS NO ALCOHOL DURING AND UP TO 1 DAY AFTER USE 05/07 completed Not Available Not Available Not Available amoxicillin 500 mg tablet TAKE 1 TABLET BY MOUTH EVERY 8 HOURS FOR 10 DAYS 09/24 completed Not Available Not Available Not Available phenazopyri dine 100 mg tablet TAKE 1 TABLET BY MOUTH EVERY 8 HOURS NEEDED FOR 2 DAYS 11/07 completed Not Available Not Available Not Available pantoprazol e 40 mg tablet,jessy yed release TAKE 1 TABLET BY MOUTH EVERY DAY active Not Available Not Available No t Available erythromyci n 5 mg/gram (0.5 %) eye ointment APPLY 1/2 INCH RIBBON IN LEFT BOTTOM EYELID 4 TIMES A DAY 05/07 completed Not Available Not Available Not Available neomycin-po lymyxin-dex ameth 3.5 mg/mL-10,00 0 unit/mL-0.1 % eye drops 04/24 completed Not Available Not Available Not Available buspirone 10 mg tablet TAKE 1 TABLET BY MOUTH TWICE A DAY 04/24 completed Not Available Not Available Not Available diazepam 10 mg tablet TAKE 1 TABLET BY MOUTH AT BEDTIME THEN 1 TABLET 1 HOUR BEFORE APPOINTME NT 10/13 completed Not Available Not Available Not Available ibuprofen 600 mg tablet TAKE 1 TABLET BY MOUTH EVERY 6 HOURS NEEDED WITH FOOD FOR PAIN 04/17 completed Not Available Not Available Not Available doxycycline hyclate 100 mg tablet TAKE 1 TABLET BY MOUTH TWICE A DAY 12/05 completed Not Available Not Available Not Available amoxicillin 875 mg-potassiu m clavulanate 125 mg tablet TAKE 1 TABLET BY MOUTH 2 TIMES DAILY FOR 5 DAYS. 11/07 completed Not Available Not Available Not Available etonogestre l 0.12 mg-ethinyl estradiol 0.015 mg/24 hr vaginal ring 11/07 completed Not Available Not Available Not Available 08/24 (28) 1 mg-20 mcg (21)/75 mg (7) tablet TAKE 1 TABLET BY MOUTH EVERY DAY 11/07 completed Not Available Not Available Not Available nitrofurant oin monohydrate /macrocryst als 100 mg capsule TAKE 1 CAPSULE BY MOUTH EVERY 12 HOURS FOR 5 DAYS 05/07 completed Not Available Not Available Not Available active Not Available Not Avai lable Not Available calcium 600 mg (as carbonate)- vitamin D3 10 mcg (400 unit) tablet TAKE 1 TABLET BY MOUTH TWICE A DAY 04/24 completed Not Available Not Available Not Available Accu-Chek Guide Glucose Meter USE DIRECTED 09/24 completed Not Available Not Available Not Available Daily-Curtis (with folic acid) 400 mcg tablet TAKE 1 TABLET BY MOUTH EVERY DAY 04/24 completed Not Available Not Available Not Available Vitals Date Recorded Body weight Systolic blood pressure Diastolic blood pressure Provider Name and Address Organization Details Last Updated DateTime 10/22/2024 31717.2571 2 g 116 mm[Hg] 75 mm[Hg] Dionne Chu [place] - [facility] 10/22/2024 10:21:46 Date Recorded Body height Body mass index (BMI) Body weight Systolic blood pressure Diastolic blood pressure Provider Name and Address Organization Details Last Updated DateTime 11/05/2024 165.1 cm 29.6 kg/m2 36288.44 g 121 mm[Hg] 83 mm[Hg] Dionne [facility] 5 12:17:34 Date Recorded Body height Body mass index (BMI) Body weight Systolic blood pressure Diastolic blood pressure Provider Name and Address Organization Details Last Updated DateTime 11/12/2024 165.1 cm 29.5 kg/m2 23076.85 g 124 mm[Hg] 77 mm[Hg] [facility] 5 09:43:21 Date Recorded Body height Body mass index (BMI) Body weight Systolic blood pressure Diastolic blood pressure Provider Name and Address Organization Details Last Updated DateTime 11/19/2024 165.1 cm 29.8 kg/m2 13629.03 g 121 mm[Hg] 81 mm[Hg] [facility] 5 11:41:44 Social History Question Answer Notes LastModified by Organizat ion Details LastModified Time Tobacco Smoking Status Never Smoker [facility] 04/17/2023 14:03:22 Do You Have An Advance Directive? No Information n ot available 11/07/2022 What Is Your Level Of Alcohol Consumption? Occasional Information not available 10/13/2021 How Many Years Have You Consumed Alcohol? 10 Information not available 11/07/2022 Are You Blind Or Do You Have Difficulty Seeing? No Information n ot available 11/07/2022 What Is Your Level Of Caffeine Consumption? Occasional Information not available 11/07/2022 How Much Tobacco Do You Chew? None Information not available 11/07/2022 In The 14 Days Before Symptom Onset, Have You Had Close Contact With A Laboratory-confirm ed COVID-19 While That Case Was Ill? No Information n ot available 11/07/2022 In The 14 Days Before Symptom Onset, Have You Had Close Contact With A Person Who Is Under Investigation For COVID-19 While That Person Was Ill? No Information not available 11/07/2022 Have You Been To An Area Known To Be High Risk For COVID-19? No Information not available 11/07/2022 Are You Deaf Or Do You Have Serious Difficulty Hearing? No Information not available 11/07/2022 What Type Of Diet Are You Following? REGULAR Information n ot available 11/07/2022 What Is The Highest Grade Or Level Of School You Have Completed Or The Highest Degree You Have Received? 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 No Information not available 11/07/2022 Have You Ever Been Counseled For Unhealthy Alcohol Use? No Information not available 04/17/2023 Do You Use Protection During Sex? No Information not available 11/07/2022 Do You Use Your Seat Belt Or Car Seat Routinely? Yes Information not available 11/07/2022 Do You Have Smoke And Carbon Monoxide Detectors In Your Home? Yes Information not available 11/07/2022 How Much Tobacco Do You Smoke? No Information not available 11/07/2022 Do You Feel Stressed (tense, Restless, Nervous, Or Anxious, Or Unable To Sleep At Night)? [id number] Information not available 11/07/2022 Do You Use Any Illicit Or Recreational Drugs? No Information not available 10/13/2021 Do You Use Sunscreen Routinely? No Information not available 11/07/2022 Has Tobacco Cessation Counseling Been Provided? No Information not available 04/17/2023 Have You Used IV Drugs? No Information not available 11/07/2022 Do You Or Have You Ever Used Any Other Forms Of Tobacco Or Nicotine? No [email or web address] Information not available 04/17/2023 Sex: Unknown Functional Status Question Answer Note LastModified by Organizat ion Details LastModified Time Do you have difficulty walking or climbing stairs? No [email or web address] Information not available 04/17/2023 Are you able to walk? YESWOREST Information not available 11/07/2022 Are you able to care for yourself? Yes Information not available 04/17/2023 Do you have difficulty dressing or bathing? No [email or web address] Information not available 04/17/2023 What is your exercise level? Occasional Information not available 11/07/2022 Mental Status None recorded. Family History Relationship Description Onset Age of this Age Resolved Age Notes LastModified by Organization Details LastModified Time Mother Hypertensive disorder Not available 2023 11:23:53 Mother Heart disease Not available 2023 11:23:53 Mother Diabetes mellitus Not available 2023 11:23:53 Medical History Condition Response Allergies (Food, seasonal, environmental ) N Other N Drug/Latex Allergies/Reactions N Breast Cancer N Blood Transfusion N Lung Disease N Dermatologic Disorders N Defects or Inherited Disease N Breast Problem N Gestational Diabetes N Hematologic disorders N Anesthesia Complications N History of STI N Deep Vein Thrombosis N Polycystic ovary syndrome N Anxiety Disorder Y Autoimmune disease N Arthritis N Polyps N Infertility N History of abnormal pap N Acid Reflux (GERD) N Cancer N Varicosities N Stroke N Neurologic/Epilepsy N Endometriosis N High Cholesterol N Headaches N Fibromyalgia N Kidney Disease N Heart Problems N Thyroid Problems N Kidney or Bladder Problems N GI Problems N Eating Disorder N Anemia N Art (IVF or FET) N Psychiatric Illness N Ovarian Cancer N Diabetes N Pulmonary (TB, Asthma) N Hepatitis/Liver Disease N No Past Medical History N Eczema N Urinary Tract Infection N Abuse/Domestic Violence N Asthma N Trauma/Violence N Depression/ depression N Heart Disease N Pre-Eclampsia N Hypertension N Osteoporosis N Thrombophilias N Gynecological History Statement/Question Response Flow Heavy Date of LMP 02/03/2024 On BCP's at Conception? N N Was last menstrual period normal Y STIs/STDs Y HPV Vaccine Y Duration of Flow (days) 7 Current Control Method Age at First Child 20 Date of control 09/05/2021 Frequency of Cycle (Q days) 30 Sexually Active? Y BCPs Menses Monthly Y Age of first menstrual cycle 9 Date of Last Pap Smear 11/07/2022 Sexual Problems? N LMP Approximate N Obstetrics History GPAL:G 2 P 1 0 0 1 Type Value Full Term 1 Living 1 Total 2 Past Encounters Encounter ID Performer Location Encounter Start Date Encounter Closed Date Diagnosis/Indication Diagnosis SNOMED-CT Code Diagnosis ICD10 Code Diagnosis Note [id number] Jazmín Hicks MD [place] [address] [address] 10/13/2021 13:41:48 10/20/2021 14:34:55 Bacterial vaginosis 988928283 N76.0 Abnormal c ervical Papanicolaou smear 864725419 R87.619 Postcoital bleeding 4888 0000 N93.0 Vaginal odor 824079016 N 89.8 [id number] Jazmín Hicks MD [place] [address] [place] [address] 12/05/2021 11:11:39 12/05/2021 11:47:35 Chlamydial infection 607868425 A74.9 History of depression 16 6042593 Z86.59 [id number] Jazmín Hicks MD [place] [address] [place] [address] 04/24/2022 16:58:56 04/25/2022 13:53:02 Gynecologic examination 51265945 Z01.419 Z11.51 Surveillan ce of oral contraception 465871960 Z30.41 Human amor lloma virus infection 483221772 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 It is strongly advised to have an annual flu shot and up can obtain at most pharmacies . If you have not had a TDap shot in the last 10 years you should obtain one as well. Discussed with patient & provided with informatio n regarding Gardisil vaccine to prevent the 4 strains for HPV that cause cervical cancer if under age 26. Encourage safe sexual practices, to use condoms and limit partners if not already in a monogamous relationsh ip. Do monthly self breast exams. Have mammogram yearly or every other year depending on family history. BRCA testing is now available for patients with strong genetic history of female cancer. If interested contact the office. Engage in daily exercise of low impact aerobic exercise 45-60 minutes 4-5 times weekly. Avoid tobacco and illicit drugs as well as using moderation with alcohol intake less than 1-2 8 oz beverages daily. This lifestyle behavior pattern will lead to less health conditions and longer life span. If BMI greater than 25 weight watchers or dietary consult advised. Patient received above instructio ns, and questions have been answered. If you have any questions please call or respond to this email. Patient was made aware of the patient portal and may obtain a paper copy of today's plan if desired. Pap/hpv sent STD Screen sent Genetic Screen discussed Colon Screen na Dexa Screen na Routine Labs PCP [id number] JARED Alatorre [place] [address],[facility] [place] [address] 04/17/2023 14:01:05 04/17/2023 14:37:31 Venereal disease screening 747710114 Z11.3 gc/ct/tric h testing sentblood STI panel orderedsaf e sexual practices encouraged and discussedw ill reach out to patient with results when available Time spent in visit is a total of 18 mins with at least 50% of visit consisting of counseling and review of plan of care. Sexually t ransmitted infectious disease 8507916 A64 [id number] [facility] [address] [address] 05/07/2024 11:21:35 05/07/2024 11:55:46 screening 643236433 Z36.87 Z3A.10 [id number] Juan Jesus MD [place] [address] [address] 05/07/2024 11:23:46 05/07/2024 12:49:40 Amenorrhea 63041681 N91.2 this patient is a 33-year-ol d female who presents for amenorrhea . She is a positive test. Ultrasound revealed a 1st trimester gestation. Patient has no complaints . We talked about early care. Talked about genetic screening. We talked about her ultrasound results. We talked about the 12 week ultrasound that has genetic screening components . She was given recommenda tions on exercise, diet, over-the-c ounter medication s. We reviewed her obstetric history. We reviewed her medical history. We reviewed her social history. She will begin routine care at her next visit.l [id number] [facility] [address] [address] 05/21/2024 09:30:28 05/21/2024 10:05:15 screening 776071799 Z36.82 Z3A.12 [id number] Juan Jesus MD [place] [address] [address] 05/21/2024 09:30:57 05/21/2024 10:52:02 Routine care 116231400 Z34.90 [id number] Juan Jesus MD [place] [address] [address] 06/18/2024 09:42:32 06/18/2024 10:26:23 Routine care 935094661 Z34.90 [id number] [facility] [address] [address] 07/16/2024 11:29:52 07/16/2024 12:39:00 screening for malformation 508693461 Z36.3 Z3A.20 [id number] Juan Jesus MD [place] [address] [address] 07/16/2024 11:30:15 07/16/2024 14:25:11 Gastroesophageal reflux disease 095972201 K21.00 Routine an tenatal care 628148478 Z34.90 [id number] [facility] [address] [address] 08/13/2024 10:23:34 08/13/2024 11:25:34 screening 289373935 Z36.2 O44.40 Z3A.24 [id number] Juan Jesus MD [place] [address] [address] 08/13/2024 10:23:55 08/13/2024 12:23:03 [id number] [facility] [address] [address] 09/10/2024 09:17:02 09/10/2024 10:06:51 Placenta previa partialis 36751330 O44.23 Z3A.28 [id number] Juan Jesus MD [place] [address] [address] 09/10/2024 09:17:29 09/10/2024 10:38:43 Routine care 996277140 Z34.90 [id number] [facility] [address] [address] 09/24/2024 09:21:22 09/24/2024 10:00:57 Low lying placenta 231322663 O44.40 Z3A.30 [id number] Juan Jesus MD [place] [address] [address] 09/24/2024 09:42:13 09/24/2024 11:20:01 Routine care 429557507 Z34.90 [id number] Juan Jesus MD [place] [address] [address] 10/08/2024 12:06:08 10/08/2024 12:58:15 Routine care 841302496 Z34.90 [id number] [facility] [address] [address] 10/22/2024 09:15:54 10/22/2024 10:06:48 Uterine size for dates discrepancy 397589330 O26.843 Z3A.34 [id number] Juan Jesus MD [place] [address] [address] 10/22/2024 09:16:45 10/22/2024 11:09:27 Routine care 362875919 Z34.90 [id number] [place] [address] [address] 11/05/2024 11:31:53 11/05/2024 12:47:17 section following previous section 927226874 O34.219 [id number] Juan Jesus MD [place] [address] [address] 11/12/2024 09:33:07 11/12/2024 10:13:01 [id number] Juan Jesus MD [place] [address] [address] 11/19/2024 11:08:50 11/19/2024 12:04:38 care status 134308962 Z34.80 Health Concerns Section Related Observation LastModified by Organization Detai ls LastModified Time None Recorded Concern Status LastModified by Organization Details LastModified Time None Recorded Advance Directives Directive N: Payers Encounter Date Sequence Insurance Name Policy Number Policy [place] Covered Member ID [place] Member ID Guarantor Name 10/22/2024 1 [facility] ACCESS NELLIE (INDEMNITY) [id number] Osbaldo Sewell [id number] Nikki Bhatia 10/22/2024 1 [facility] ACCESS NELLIE (INDEMNITY) [id number] Osbaldo Sewell [id number] Nikki Jannette 11/05/2024 1 [facility] ACCESS NELLIE (INDEMNITY) [id number] Osbaldo Sewell [id number] Nikki Carloadams 11/12/2024 1 [facility] ACCESS NELLIE (INDEMNITY) [id number] Osbaldo Sewell [id number] Nikki Jannette 11/19/2024 1 [facility] ACCESS NELLIE (INDEMNITY) [id number] Osbaldo Sewell [id number] [facility] Jannette OBGyn Episode Ob Episode Information Episode Created Date Number of Fetuses Patient Bloodtype Patient rh Status Prepregnancy Weight lbs Domestic Partner Domestic Partner Phone Father Name Clinical Dietitian Status 10/14/19 22 1 CLOSED Fetus Data First Name Last Name Admitted to NICU Weight (g) Sex Living Outcome Pediatric Complications Fetus ID Race Codes Race Delivery Type F Full Term [id number] Primary Adan Calculation Initial Adan Date Initial Exam [...] Complications Tubal Sterilization Discharge Date Comments 1 40 Discharge Information Feeding Method Contraceptive Method Maternal HG B and HCT Levels Ob Episode Information Episode Created Date Number of Fetuses Patient Bloodtype Patient rh Status Prepregnancy Weight lbs Domestic Partner Domestic Partner Phone Father Name Clinical Dietitian Status 05/21/20 24 1 O Positive Osbaldo OPEN Fetus Data First Name Last Name Admitted to NICU Weight (g) Sex Living Outcome Pediatric Complications Fetus ID Race Codes Race Delivery Type [id number] Problems Problem Notes Marginal previa - resolved Problem Name Start Date End Date Resolution Snomed Code Not e Blood glucose outside reference range [id number] failed 1hr g tt (fasted for 12hrs) per Dr Jesus start checking BS QID Deliveries by TO REPEAT MEGHANA DUDLEY Gastric reflux [id number] presc ribed Protonix 40 mg Adan Calculation Initial Adan Date Initial Exam Date Initial Exam Provider Initial Ultrasound Date Last Menstrual Period Date Ultra Sound Weeks Gestation 05/21/2024 05/07/2024 02/03/2024 10 Eighteen To Twenty Week Adan Update Ultra Sound Date Fundal Height At Umbil Quickening Date Ultra Sound Latest Weeks Gestation Final Adan Confirmed By Final Adan Confirmed Date Final Adan Date Ultra Sound Latest Days Gestation 0 [email or web address] 05/21/2024 11/30/19 25 0 Pre-joesph Flowsheet Flowsheet Date 05/21/2024 Brian Score Blood Edema Fundus Height Fundus Units Glucose Ketones Leukocytes Nitrite Labor Signs Protein Cervic Dilation Cervic Effacement Cervic Station Type Weight in lbs Pre/Post Dialysis Refused Weight 161.017762867180 BP Diastolic BP Location Tested BP Systolic BP Type 77 L arm 117 sitting Fetus Heart Rate Present A 158 Fetus Movement A No Comments this patient is a 33-year-ol d multiparous female at 12 weeks' gestation who presents for initial care. She has a history of term vaginal births. Her medical, surgical, obstetric history is unremarkable. She is vaccinated. She was given precautions recommendations for . We talked about vaccines in . Talked about care in detail. She is having genetic testing. She had a normal 12 week ultrasound. To begin routine care. Flowsheet Date 06/18/2024 Brian Score Blood Edema Fundus Height Fundus Units Glucose Ketones Leukocytes Nitrite Labor Signs Protein Cervic Dilation Cervic Effacement Cervic Station Type Weight in lbs Pre/Post Dialysis Refused 160.451018305190 BP Diastolic BP Location Tested BP Systolic BP Type 76 L arm 113 sitting Fetus Heart Rate Present A 145 Fetus Movement A No Comments no complaints, no problems, routine care, no contractions, no vaginal bleeding, no loss of fluid, no cramping Flowsheet Date 07/16/2024 Brian Score Blood Edema Fundus Height Fundus Units Glucose Ketones Leukocytes Nitrite Labor Signs Protein Cervic Dilation Cervic Effacement Cervic Station Type Weight in lbs Pre/Post Dialysis Refused BP Diastolic BP Location Tested BP Systolic BP Type Fetus Heart Rate Present Fetus Movement Comments Flowsheet Date 07/16/2024 Brian Score Blood Edema Fundus Height Fundus Units Glucose Ketones Leukocytes Nitrite Labor Signs Protein Cervic Dilation Cervic Effacement Cervic Station Type Weight in lbs Pre/Post Dialysis Refused 166.050198230314 BP Diastolic BP Location Tested BP Systolic BP Type 80 L arm 128 sitting Fetus Heart Rate Present A 145 Fetus Movement A Yes Comments no complaints, no problems, routine care, no contractions, no vaginal bleeding, no loss of fluid, no cramping repeat ultrasound for low-lying placenta an incomplete anatomy next Flowsheet Date 08/13/2024 Brian Score Blood Edema Fundus Height Fundus Units Glucose Ketones Leukocytes Nitrite Labor Signs Protein Cervic Dilation Cervic Effacement Cervic Station Type Weight in lbs Pre/Post Dialysis Refused BP Diastolic BP Location Tested BP Systolic BP Type Fetus Heart Rate Present Fetus Movement Comments Flowsheet Date 08/13/2024 Brian Score Blood Edema Fundus Height Fundus Units Glucose Ketones Leukocytes Nitrite Labor Signs Protein Cervic Dilation Cervic Effacement Cervic Station Type Weight in lbs Pre/Post Dialysis Refused 170.580645051378 BP Diastolic BP Location Tested BP Systolic BP Type 84 L arm 130 sitting Fetus Heart Rate Present A 144 Fetus Movement A Yes Comments Placenta previa-patient give n detailed precautions on previa. Otherwise no complaints, no problems, routine care. Flowsheet Date 09/10/2024 Brain Score Blood Edema Fundus Height Fundus Units Glucose Ketones Leukocytes Nitrite Labor Signs Protein Cervic Dilation Cervic Effacement Cervic Station Type Weight in lbs Pre/Post Dialysis Refused BP Diastolic BP Location Tested BP Systolic BP Type Fetus Heart Rate Present Fetus Movement Comments Flowsheet Date 09/10/2024 Brian Score Blood Edema Fundus Height Fundus Units Glucose Ketones Leukocytes Nitrite Labor Signs Protein Cervic Dilation Cervic Effacement Cervic Station Type Weight in lbs Pre/Post Dialysis Refused 174.39796312085 BP Diastolic BP Location Tested BP Systolic BP Type 76 L arm 110 sitting Fetus Heart Rate Present Fetus Movement A Yes Comments no complaints, no problems, routine care, no contractions, no vaginal bleeding, no loss of fluid, no cramping GOOD GROWTH ULTRASOUND TODAY, MARGINAL PREVIA Flowsheet Date 09/24/2024 Brian Score Blood Edema Fundus Height Fundus Units Glucose Ketones Leukocytes Nitrite Labor Signs Protein Cervic Dilation Cervic Effacement Cervic Station Type Weight in lbs Pre/Post Dialysis Refused BP Diastolic BP Location Tested BP Systolic BP Type Fetus Heart Rate Present Fetus Movement Comments Flowsheet Date 09/24/2024 Brian Score Blood Edema Fundus Height Fundus Units Glucose Ketones Leukocytes Nitrite Labor Signs Protein Cervic Dilation Cervic Effacement Cervic Station Type Weight in lbs Pre/Post Dialysis Refused 175.267843711942 BP Diastolic BP Location Tested BP Systolic BP Type 77 L arm 124 sitting Fetus Heart Rate Present A 144 Fetus Movement A Yes Comments previa has resolved on ultra sound today, normal fluid, blood sugars were reviewed-good control, reflexes improved. Flowsheet Date 10/08/2024 Brian Score Blood Edema Fundus Height Fundus Units Glucose Ketones Leukocytes Nitrite Labor Signs Protein Cervic Dilation Cervic Effacement Cervic Station 28 cm Type Weight in lbs Pre/Post Dialysis Refused Weight 176.427311376883 BP Diastolic BP Location Tested BP Systolic BP Type 80 L arm 126 sitting Fetus Heart Rate Present A 136 Present Fetus Movement A Yes Comments no complaints, no problems, routine care, no contractions, no vaginal bleeding, no loss of fluid, no cramping good blood sugar control, size smaller than dates, growth ultrasound Flowsheet Date 10/22/2024 Brian Score Blood Edema Fundus Height Fundus Units Glucose Ketones Leukocytes Nitrite Labor Signs Protein Cervic Dilation Cervic Effacement Cervic Station Type Weight in lbs Pre/Post Dialysis Refused BP Diastolic BP Location Tested BP Systolic BP Type Fetus Heart Rate Present Fetus Movement Comments Flowsheet Date 10/22/2024 Brian Score Blood Edema Fundus Height Fundus Units Glucose Ketones Leukocytes Nitrite Labor Signs Protein Cervic Dilation Cervic Effacement Cervic Station 34 cm Type Weight in lbs Pre/Post Dialysis Refused 176.890363740889 BP Diastolic BP Location Tested BP Systolic BP Type 75 L arm 116 sitting Fetus Heart Rate Present A 145 Fetus Movement A Yes Comments no complaints, no problems, routine care, no contractions, no vaginal bleeding, no loss of fluid, no cramping. good glucose control. diet controlled Flowsheet Date 11/05/2024 Brian Score Blood Edema Fundus Height Fundus Units Glucose Ketones Leukocytes Nitrite Labor Signs Protein Cervic Dilation Cervic Effacement Cervic Station 37 cm Type Weight in lbs Pre/Post Dialysis Refused Weight 178.287290708442 BP Diastolic BP Location Tested BP Systolic BP Type 83 L arm 121 sitting Fetus Heart Rate Present A 155 Present Fetus Movement A Yes Comments no complaints, no problems, routine care, no contractions, no vaginal bleeding, no loss of fluid, no cramping2 Flowsheet Date 11/12/2024 Brian Score Blood Edema Fundus Height Fundus Units Glucose Ketones Leukocytes Nitrite Labor Signs Protein Cervic Dilation Cervic Effacement Cervic Station Type Weight in lbs Pre/Post Dialysis Refused Weight 177.049281574846 BP Diastolic BP Location Tested BP Systolic BP Type 77 L arm 124 sitting Fetus Heart Rate Present A 140 Present Fetus Movement A Yes Comments no complaints, no problems, routine care, no contractions, no vaginal bleeding, no loss of fluid, no cramping Flowsheet Date 11/19/2024 Brian Score Blood Edema Fundus Height Fundus Units Glucose Ketones Leukocytes Nitrite Labor Signs Protein Cervic Dilation Cervic Effacement Cervic Station 34 cm Type Weight in lbs Pre/Post Dialysis Refused Weight 179.313597068701 BP Diastolic BP Location Tested BP Systolic BP Type 81 L arm 121 sitting Fetus Heart Rate Present A 140 Present Fetus Movement A Yes Comments no complaints, no problems, routine care, no contractions, no vaginal bleeding, no loss of fluid, no cramping Menstrual History Last Menstrual Date Menses Monthly On Bcp Conception Prior Menses Frequency Hcg Plus Date Menarche Onset Age 0702/03/2024 true false Delivery Information Delivery Date Delivery Type Labor Anesthesia Weeks Gestation Incision Type Labor Labor Length Hrs Delivered By Post Complications Tubal Sterilization Discharge Date Comments Discharge Information Feeding Method Contraceptive Method Maternal HG B and HCT Levels
--- OUTSIDE RECORDS SUMMARY | 2024-11-25 05:32 | XMS_ITS | Clinical Summary ---
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 Role Phone Darrin oRwell MD Primary Care Provider [phone] Allergies No known active allergies Medications sertraline [...] on file Legal Sex Female 10:04 AM [employer] Gender Identity Not on file Sexual Orientation Not on file Last Filed Vital Signs Vital Sign Reading Time Taken Comments Blood Pressure 128/80 08/20/2022 10:21 AM [employer] Pulse 83 08/20/2022 10:21 AM [employer] Temperature 36.6 C (97.9 F) 08/20/2022 10:21 AM [employer] Respiratory Rate 16 08/20/2022 10:21 AM [employer] Oxygen Saturation 98% 08/20/2022 10:21 AM [employer] Inhaled Oxygen Concentration - - Weight 65.8 kg (145 lb) 08/20/2022 10:21 AM [employer] Height 152.4 cm (5') 08/20/2022 10:21 AM [employer] Body Mass Index 28.32 08/20/2022 10:21 AM [employer] Plan of Treatment Health Maintenance Due Date [...] to complete this topic Insurance 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
--- OUTSIDE RECORDS SUMMARY | 2024-11-25 05:32 | XMS_ITS | Data Portability ---
Author Organization [facility] SAMMIEShoaibCorn Bria Address [address] [place] [address] Assessment Encounter Date Assessment Date Assessment LastModified [...] testing. [address] [facility], [address], [address] [address], [place], [address], 03:07:11 urinalysi s, dipstick 2020 elisabeth In-Office Order, Internal Use Only DO Not Attach Compendium DO Not Attach Compendium, Do Not Delete/merge, [id number] 16:49:28 bacterial vaginosis panel, vaginal [address] [facility] (Centralized Electronic Ordering - All Locations), Patient Can Go To The Location Of Their Choice, [address] 16:11:09 culture, vaginal/r ectal, streptoco ccus group B [address] [facility] (Centralized Electronic Ordering - All Locations), Patient Can Go To The Location Of Their Choice, [address] 16:11:10 CT + NG + TV, DNA, urine/swa b [address] [facility], [address] [facility], [address], [place], [address], 9 20:07:40 urinalysi s, dipstick 2018 [facility] Order, Internal Use Only DO Not Attach Compendium DO Not Attach Compendium, Do Not Delete/merge, [id number] 9 17:28:09 test, urine 2018 019 [facility] In-Office Order, Internal Use Only DO Not Attach Compendium DO Not Attach Compendium, Do Not Delete/merge, [id number] 9 17:28:09 pap, IG + HPV, cervical [facility], [address] [facility], [address], [place], [address], 0 14:40:47 pap, IG + HPV, cervical - please use Z11.51 in addition to code above for HPV testing. 2018 019 [facility], [address], [address] [address], [place], [address], 9 11:39:12 test, urine [address] In-Office Order, Internal Use Only DO Not Attach Compendium DO Not Attach Compendium, Do Not Delete/merge, [id number] 9 10:44:39 bacterial vaginosis panel, vaginal 2018 [...] [address] [facility], [address], [address], [place], [address], 8 14:13:21 urinalysi s, dipstick 2017 018 elisabeth In-Office Order, Internal Use Only DO Not Attach Compendium DO Not Attach Compendium, Do Not Delete/merge, [id number] 8 13:34:04 test, urine 2017 018 elisabeth In-Office Order, Internal Use Only DO Not Attach Compendium DO Not Attach Compendium, Do Not Delete/merge, [id number] 8 13:34:04 bacterial vaginosis + vaginitis panel, vaginal - Z11.3, Z20.[address] [facility], [address], [address], [place], [address], 8 08:29:38 HSV (1+2) DNA, qual, PCR, unspecifi ed specimen - Z11.3, Z20.[address] [facility], [address] [place], [place] [address]yovana Kwame, [address], [place], [address], 8 08:29:39 culture, vaginal/r ectal, streptoco ccus group B - Z11.3, Z20.[address] [facility], [facility], [address], [place], [address], 8 08:29:39 Referral None recorded. Procedures None recorded. Surgeries None recorded. Imaging None recorded. Medication Orders sertralin e 100 mg tablet 2020 0[address] [facility] [address] In [facility], [address] [place] [address], [address], 1 11:38:30 buspirone 10 mg tablet [address] [facility] [address] In [facility], [address] [place] [address], [address], 1 11:38:29 multivita min tablet [address] [facility] [address] In [facility], [address] [place] [address], [address], 03:32:24 Calcium with Vitamin D 600 mg-10 mcg (400 unit) tablet 2020 021 [facility] [address] In [facility], [address] [place] [address], [address], 16:49:28 multivita min tablet 2018 019 [facility] [address] In [facility], [address] [place] [address], [address], 9 17:28:13 Calcium with Vitamin D 600 mg-10 mcg (400 unit) tablet 2018 019 [facility] [address], [address], 9 17:28:14 RepHresh vaginal gel 2018 019 [facility] [address] In [facility], [address] [place] [address], [address], 1 10:52:19 RepHresh Pro-B 2.5 billion cell capsule 2018 019 [facility] [address] In [facility], [address] [place] [address], [address], 1 10:52:16 multivita min tablet 2018 019 [facility] [address], [address], 9 16:13:52 Calcium with Vitamin D 600 mg-10 mcg (400 unit) tablet 2018 019 [facility] [address], [address], 9 16:13:51 calcium 600 mg (as carbonate )-vitamin D3 20 mcg (800 unit) tablet 2017 018 [facility] [address], [address], 1 10:52:12 multivita min tablet 2017 018 INTERFACE [facility] [address], [address], 8 12:00:46 Patient TargetsNo targets recorded. Patient Instructions Encounter Date Encounter Id Patient Instructions Last Modified By Organization Details Last Modified Time 01/29/2018 [id number] Patient advised to relax pubococcygeus muscle during intercourse. elisabeth Not available 01/29/2018 12:40:49 05/25/2021 [id number] anxiety disorder : care instructions elisaebth Not available 05/25/2021 11:38:20 Call back after [...] DO Not Attach Compendium, Do Not Delete/merge, [id number] 05/25/2021 11:22:25 05/25/2005/25/2021 urina lysis , dipst ick Nitrite negati ve Not Available In-Office Order Internal Use Only DO Not Attach Compendium DO Not Attach Compendium, Do Not Delete/merge, [id number] 05/25/2021 11:22:25 05/25/2005/25/2021 urina lysis , dipst ick Urobilinogen .2 Not Available In-Of fice Order Internal Use Only DO Not Attach Compendium DO Not Attach Compendium, Do Not Delete/merge, [id number] 05/25/2021 11:22:25 05/25/2005/25/2021 urina lysis , dipst ick Protein Negati ve Not Available In-Office Order Internal Use Only DO Not Attach Compendium DO Not Attach Compendium, Do Not Delete/merge, [id number] 05/25/2021 11:22:25 05/25/2005/25/2021 urina lysis , dipst ick pH 8.0 Not Available In-Office Order Internal Use Only DO Not Attach Compendium DO Not Attach Compendium, Do Not Delete/merge, [id number] 05/25/2021 11:22:25 05/25/2005/25/2021 urina lysis , dipst ick Blood Non-He molyze d: Trace Not Available In-Office Order Internal Use Only DO Not Attach Compendium DO Not Attach Compendium, Do Not Delete/merge, [id number] 05/25/2021 11:22:25 05/25/2005/25/2021 urina lysis , dipst ick Specific [place] 1.020 Not Available In-Off ice Order Internal Use Only DO Not Attach Compendium DO Not Attach Compendium, Do Not Delete/merge, [id number] 05/25/2021 11:22:25 05/25/2005/25/2021 urina lysis , dipst ick Ketone Negati ve Not Available In-Office Order Internal Use Only DO Not Attach Compendium DO Not Attach Compendium, Do Not Delete/merge, [id number] 05/25/2021 11:22:25 05/25/2005/25/2021 urina lysis , dipst ick Bilirubin Negati ve Not Available In-Office Order Internal Use Only DO Not Attach Compendium DO Not Attach Compendium, Do Not Delete/merge, [id number] 05/25/2021 11:22:25 05/25/20 21 05/25/2021 urina lysis , dipst ick Glucose Negati ve Not Available In-Office Order Internal Use Only DO Not Attach Compendium DO Not Attach Compendium, Do Not Delete/merge, [id number] 05/25/2021 11:22:25 07/06/20 19 07/06/2019 pregn carmen test, urine HCG negati ve Not Available In-Office Order Internal Use Only DO Not Attach Compendium DO Not Attach Compendium, Do Not Delete/merge, [id number] 07/06/2019 16:44:45 07/06/20 19 07/06/2019 urina lysis , dipst ick Leukocytes Negati ve Not Available In-Office Order Internal Use Only DO Not Attach Compendium DO Not Attach Compendium, Do Not Delete/merge, [id number] 07/06/2019 16:37:03 07/06/20 19 07/06/2019 urina lysis , dipst ick Nitrite negati ve Not Available In-Office Order Internal Use Only DO Not Attach Compendium DO Not Attach Compendium, Do Not Delete/merge, [id number] 07/06/2019 16:37:03 07/06/20 19 07/06/2019 urina lysis , dipst ick Urobilinogen .2 Not Available In-Of fice Order Internal Use Only DO Not Attach Compendium DO Not Attach Compendium, Do Not Delete/merge, [id number] 07/06/2019 16:37:03 07/06/20 19 07/06/2019 urina lysis , dipst ick Protein Negati ve Not Available In-Office Order Internal Use Only DO Not Attach Compendium DO Not Attach Compendium, Do Not Delete/merge, [id number] 07/06/2019 16:37:03 07/06/20 19 07/06/2019 urina lysis , dipst ick pH 6.0 Not Available In-Office Order Internal Use Only DO Not Attach Compendium DO Not Attach Compendium, Do Not Delete/merge, [id number] 07/06/2019 16:37:03 07/06/20 19 07/06/2019 urina lysis , dipst ick Blood Modera te Not Available In-Office Order Internal Use Only DO Not Attach Compendium DO Not Attach Compendium, Do Not Delete/merge, [id number] 07/06/2019 16:37:03 07/06/20 19 07/06/2019 urina lysis , dipst ick Specific [place] 1.005 Not Available In-Off ice Order Internal Use Only DO Not Attach Compendium DO Not Attach Compendium, Do Not Delete/merge, [id number] 07/06/2019 16:37:03 07/06/20 19 07/06/2019 urina lysis , dipst ick Ketone Negati ve Not Available In-Office Order Internal Use Only DO Not Attach Compendium DO Not Attach Compendium, Do Not Delete/merge, [id number] 07/06/2019 16:37:03 07/06/20 19 07/06/2019 urina lysis , dipst ick Bilirubin Negati ve Not Available In-Office Order Internal Use Only DO Not Attach Compendium DO Not Attach Compendium, Do Not Delete/merge, [id number] 07/06/2019 16:37:03 07/06/20 19 07/06/2019 urina lysis , dipst ick Glucose Negati ve Not Available In-Office Order Internal Use Only DO Not Attach Compendium DO Not Attach Compendium, Do Not Delete/merge, [id number] 07/06/2019 16:37:03 01/30/20 18 01/29/2018 urina lysis , dipst ick Leukocytes Negati ve Not Available In-Office Order Internal Use Only DO Not Attach Compendium DO Not Attach Compendium, Do Not Delete/merge, [id number] 01/29/2018 13:01:43 01/30/20 18 01/29/2018 urina lysis , dipst ick Nitrite negati ve Not Available In-Office Order Internal Use Only DO Not Attach Compendium DO Not Attach Compendium, Do Not Delete/merge, [id number] 01/29/2018 13:01:43 01/30/20 18 01/29/2018 urina lysis , dipst ick Urobilinogen .2 Not Available In-Of fice Order Internal Use Only DO Not Attach Compendium DO Not Attach Compendium, Do Not Delete/merge, [id number] 01/29/2018 13:01:43 01/30/20 18 01/29/2018 urina lysis [...] 01/29/2018 urina lysis , dipst ick Specific [place] 1.020 Not Available In-Off ice Order Internal [...] AND CRUZ AWAD . Not Available [facility] ([facility]) [address] [place], [address], 01/31/2018 14:13:21 01/30/20 18 01/31/2018 pap, IG + HPV, cervi chandni specimen adequacy: RUY Rock Satis facto ry for evalu ation . Endoc ervic al and/o r squam ous metap lasti c cells (endo cervi chandni compo nent) are prese nt. Not Available [facility] ([facility]) [address] [place], [address], 01/31/2018 14:13:21 01/30/20 18 01/31/2018 pap, IG + HPV, cervi chandni clinician provided ICD10: RUY Rock Z20.2 Z01.4 19 Not Available [facility] ([facility]) [address] [place], [address], 01/31/2018 14:13:21 01/30/20 18 01/31/2018 pap, IG + HPV, cervi chandni performed by: RUY Jamison , Cytot gaudencio mcintosh t (ASCP ) Not Available [facility] ([facility]) [address] [place], [address], 01/31/2018 14:13:21 01/30/20 18 01/31/2018 pap, IG + HPV, cervi chandni . . Not Available [facility] ([facility]) [address] [place], [address], 01/31/2018 14:13:21 01/30/20 18 01/31/2018 pap, IG [...] ts do occur . Not Available [facility] ([facility]) [address] [facility], [place], [address], 01/31/2018 14:13:21 01/30/20 18 01/31/2018 pap, IG + HPV, cervi chandni test methodology: COMMEN T This liqui d based ThinP rep(R ) pap test was scree chanelle with the use of an image guide quinton cheatham. Not Available [facility] ([facility]) [address] [facility], [place], [address], 01/31/2018 14:13:21 01/30/20 18 01/31/2018 pap, IG + HPV, cervi chandni HPV aptima NEGATI VE negati ve This test detec ts fourt een high- risk HPV types (16/1 8/31/ 33/35 /39/4 5/ 51/52 /56/5 8/59/ 66/68 ) witho ut diffe renti ation . Not Available [facility] ([facility]) [address] [facility], [place], [address], 01/31/2018 14:13:21 01/30/20 18 02/07/2018 bacte rial vagin osis + vagin itis panel , vagin al atopobium vaginae LOW - 0 score Not Available [facility] ([facility]) [address] [place], [address], 02/07/2018 08:29:38 01/30/20 18 02/07/2018 bacte rial vagin osis + vagin itis panel , vagin al bvab 2 LOW - 0 score Not Available [facility] ([facility]) [address] [place], [address], 02/07/2018 08:29:38 01/30/20 18 02/07/2018 bacte rial [...] e itzel cteri stics deter mined by [employer]. It has not been clear ed or appro claus by the Food and Drug Admin istra tion. The FDA has deter mined that such clear ance or appro francisca is not neces heather. Not Available [facility] ([facility]) [address] [place], [address], 02/07/2018 08:29:38 01/30/20 18 02/07/2018 bacte rial vagin osis + vagin itis panel , vagin al justin albicans, YISSEL NEGATI VE negati ve Not Available [facility] ([facility]) [address] [place], [address], 02/07/2018 08:29:38 01/30/20 18 02/07/2018 bacte rial vagin osis + vagin itis panel , vagin al justin glabrata, YISSEL NEGATI VE negati ve This test was devel oped and its perfo rmanc e itzel cteri stics deter mined by [employer]. It has not been clear ed or appro claus by the Food and Drug Admin istra tion. The FDA has deter mined that such clear ance or appro francisca is not neces heather. Not Available [facility] ([facility]) [address] [place], [address], 02/07/2018 08:29:38 01/30/20 18 02/07/2018 bacte rial vagin osis + vagin itis panel , vagin al trich vag by YISSEL NEGATI VE negati ve Not Available [facility] ([facility]) [address] [facility], [place], [address], 02/07/2018 08:29:38 01/30/20 18 02/07/2018 bacte rial vagin osis + vagin itis panel , vagin al chlamydia trachomatis, YISSEL NEGATI VE negati ve Not Available [facility] ([facility]) [address] [facility], [place], [address], 02/07/2018 08:29:38 01/30/20 18 02/07/2018 bacte rial vagin osis + vagin itis panel , vagin al neisseria gonorrhoeae, YISSEL NEGATI VE negati ve Not Available [facility] ([facility]) [address] [facility], [place], [address], 02/07/2018 08:29:38 01/30/20 18 01/31/2018 HSV (1+2) DNA, qual, PCR, unspe cifie d speci men hsv 1 YISSEL NEGATI VE negati ve Not Available [facility] ([facility]) [address] [facility], [place], [address], 02/07/2018 08:29:39 01/30/20 18 01/31/2018 HSV (1+2) DNA, qual, PCR, unspe cifie d speci men hsv 2 YISSEL NEGATI VE negati ve Not Available [facility] ([facility]) [address] [place], [address], 02/07/2018 08:29:39 01/30/20 18 01/31/2018 cultu re, [...] n is noted . Not Available [facility] ([facility]) [address] [facility], [place], [address], 02/07/2018 08:29:39 01/30/20 18 01/29/2018 pregn carmen test, urine HCG negati ve Not Available In-Office Order Internal Use Only DO Not Attach Compendium DO Not Attach Compendium, Do Not Delete/merge, [id number] 01/29/2018 13:01:45 04/28/20 19 04/30/2019 pap, IG + HPV, cervi chandni diagnosis: COMMEN T NEGAT GREGORIO FOR INTRA EPITH ELIAL LESIO N OR CRUZ AWAD . Not Available [facility] ([facility]) [address] [facility], [place], [address], 04/30/2019 11:39:12 04/28/20 19 04/30/2019 pap, IG + HPV, cervi chandni specimen adequacy: COMMEN T Satis facto ry for evalu ation . Endoc ervic al and/o r squam ous metap lasti c cells (endo cervi chandni compo nent) are prese nt. Not Available [facility] ([facility]) [address] [facility], [place], [address], 04/30/2019 11:39:12 04/28/20 19 04/30/2019 pap, IG + HPV, cervi chandni clinician provided ICD10: RUY Rock Z01.4 19 Z11.5 1 Z20.2 Not Available [facility] ([facility]) [address] [place], [address], 04/30/2019 11:39:12 04/28/20 19 04/30/2019 pap, IG + HPV, cervi chandni performed by: RUY rock, Cytot gaudencio mcintosh t (ASCP ) Not Available [facility] ([facility]) [address] [place], [address], 04/30/2019 11:39:12 04/28/2004/30/2019 pap, IG + HPV, cervi chandni . . Not Available [facility] ([facility]) [address] [place], [address], 04/30/2019 11:39:12 04/28/2004/30/2019 pap, IG + HPV, [...] ts do occur . Not Available [facility] ([facility]) [address] [place], [address], 04/30/2019 11:39:12 04/28/2004/30/2019 pap, IG + HPV, cervi chandni test methodology: RUY Rock This liqui d based ThinP rep(R ) pap test was scree chanelle with the use of an image guide quinton cheatham. Not Available [facility] ([facility]) [address] [place], [address], 04/30/2019 11:39:12 04/28/20 19 04/30/2019 pap, IG + HPV, cervi chandni HPV aptima POSITI VE negati ve abnormal This test detec ts fourt een high- risk HPV types (16/1 8/31/ 33/35 /39/4 5/ 51/52 /56/5 8/59/ 66/68 ) witho cedric peguero . Not Available [facility] ([facility]) [address] [place], [address], 04/30/2019 11:39:12 04/28/20 19 04/30/2019 bacte rial vagin osis panel , vagin al chlamydia trachomatis, YISSEL POSITI VE negati ve abnormal Not Available [facility] ([facility]) [address] [place], [address], 05/01/2019 11:38:42 04/28/20 19 04/30/2019 bacte rial vagin osis panel , vagin al neisseria gonorrhoeae, YISSEL NEGATI VE negati ve Not Available [facility] ([facility]) [address] [place], [address], 05/01/2019 11:38:42 04/28/20 19 05/01/2019 bacte rial vagin osis panel , vagin al atopobium vaginae LOW - 0 score Not Available [facility] ([facility]) [address] [place], [address], 05/01/2019 11:38:42 04/28/2005/01/2019 bacte rial vagin osis panel , vagin al bvab 2 LOW - 0 score Not Available [facility] ([facility]) [address] [place], [address], 05/01/2019 11:38:42 04/28/20 19 05/01/2019 bacte rial [...] e itzel cteri stics deter mined by [employer]. It has not been clear ed or appro claus by the Food and Drug Admin istra tion. The FDA has deter mined that such clear ance or appro francisca is not neces heather. Not Available [facility] ([facility]) [address] [place], [address], 05/01/2019 11:38:42 04/28/2005/01/2019 bacte rial vagin osis panel , vagin al justin albicans, YISSEL NEGATI VE negati ve Not Available [facility] ([facility]) [address] [place], [address], 05/01/2019 11:38:42 04/28/2005/01/2019 bacte rial vagin osis panel , vagin al justin glabrata, YISSEL NEGATI VE negati ve This test was devel oped and its perfo rmanc e itzel cteri stics deter mined by [employer]. It has not been clear ed or appro claus by the Food and Drug Admin istra tion. The FDA has deter mined that such clear ance or appro francisca is not neces heather. Not Available [facility] ([facility]) [address] [place], [address], 05/01/2019 11:38:42 04/28/2005/01/2019 bacte rial vagin osis panel , vagin al trich vag by YISSEL NEGATI VE negati ve Not Available [facility] ([facility]) [address] [facility], [place], [address], 05/01/2019 11:38:42 04/28/2005/01/2019 bacte rial vagin osis panel , vagin al hsv 1 YISSEL NEGATI VE negati ve Not Available [facility] ([facility]) [address] [facility], [place], [address], 05/01/2019 11:38:42 04/28/2005/01/2019 bacte rial vagin osis panel , vagin al hsv 2 YISSEL NEGATI VE negati ve Not Available [facility] ([facility]) [address] [facility], [place], [address], 05/01/2019 11:38:42 04/28/2004/30/2019 cultu re, vagin al/re [...] n is noted . Not Available [facility] ([facility]) [address] [place], [address], 05/01/2019 11:38:43 05/01/20 19 05/01/2019 pregn carmen test, urine HCG negati ve Not Available In-Office Order Internal Use Only DO Not Attach Compendium DO Not Attach Compendium, Do Not Delete/merge, [id number] 04/28/2019 16:21:31 07/07/20 19 07/08/2019 CT + NG + TV, DNA, urine /swab chlamydia by YISSEL NEGATI VE negati ve Not Available [facility] ([facility]) [address] [facility], [place], [address], 07/08/2019 20:07:40 07/07/20 19 07/08/2019 CT + NG + TV, DNA, urine /swab gonococcus by YISSEL NEGATI VE negati ve Not Available [facility] ([facility]) [address] [facility], [place], [address], 07/08/2019 20:07:40 07/07/20 19 07/08/2019 CT + NG + TV, DNA, urine /swab trich vag by YISSEL NEGATI VE negati ve Not Available [facility] ([facility]) [address] [place], [address], 07/08/2019 20:07:40 05/25/20 21 05/29/2021 IGP, APTIM A HPV diagnosis: Commen t NEGAT GREGORIO FOR INTRA EPITH ELIAL LESIO N OR CRUZ AWAD . Not Available [facility] ([facility]) [address] [place], [address], 05/30/2021 03:07:10 05/25/20 21 05/29/2021 IGP, APTIM A HPV specimen adequacy: Commen t Satis facto ry for evalu ation . No endoc ervic al compo nent is ident ified . Not Available [facility] ([facility]) [address] [place], [address], 05/30/2021 03:07:10 05/25/2005/29/2021 IGP, APTIM A HPV clinician provided ICD10: Ruy rock Z01.4 19 Z11.5 1 Not Available [facility] ([facility]) [address] [place], [address], 05/30/2021 03:07:10 05/25/2005/29/2021 IGP, APTIM A HPV performed by: Ruy palmer, Reynaldo rock (ASCP ) Not Available [facility] ([facility]) [address] [place], [address], 05/30/2021 03:07:10 05/25/2005/29/2021 IGP, APTIM A HPV . . Not Available [facility] ([facility]) [address] [place], [address], 05/30/2021 03:07:10 05/25/2005/29/2021 IGP, APTIM A HPV [...] ts do occur . Not Available [facility] ([facility]) [address] [place], [address], 05/30/2021 03:07:10 05/25/2005/29/2021 IGP, APTIM A HPV test methodology: Ruy rock This liqui d based ThinP rep(R ) pap test was scree chanelle with the use of an image guide d systartis m. Not Available [facility] ([facility]) [address] [facility], [place], [address], 05/30/2021 03:07:10 05/25/2005/29/2021 IGP, APTIM A HPV HPV aptima Positi ve negati ve abnormal This nucle ic acid ampli ficat ion test detec ts fourt een high- risk HPV types (16,1 8,31, 33,35 ,39,4 5,51, 52,56 ,58,5 9,66, 68) witho ut diffe renti ation . Not Available [facility] ([facility]) [address] [facility], [place], [address], 05/30/2021 03:07:10 05/25/2005/30/2021 NUSWA B VG+, HSV atopobium vaginae Low - 0 score Not Available [facility] ([facility]) [address] [facility], [place], [address], 06/01/2021 16:11:09 05/25/2005/30/2021 NUSWA B VG+, HSV bvab 2 Low - 0 score Not Available [facility] ([facility]) [address] [facility], [place], [address], 06/01/2021 16:11:09 05/25/2005/30/2021 NUSWA B VG+, HSV [...] e itzel cteri stics deter mined by [employer]. It has not been clear ed or appro claus by the Food and Drug Admin istra tion. Not Available [facility] ([facility]) [address] [place], [address], 06/01/2021 16:11:09 05/25/2005/30/2021 NUSWA B VG+, HSV justin albicans, YISSEL Negati ve negati ve Not Available [facility] ([facility]) [address] [place], [address], 06/01/2021 16:11:09 05/25/2005/30/2021 NUSWA B VG+, HSV justin glabrata, YISSEL Negati ve negati ve Not Available [facility] ([facility]) [address] [place], [address], 06/01/2021 16:11:09 05/25/2005/31/2021 NUSWA B VG+, HSV hsv 1 YISSEL Negati ve negati ve Not Available [facility] ([facility]) [address] [place], [address], 06/01/2021 16:11:09 05/25/2005/31/2021 NUSWA B VG+, HSV hsv 2 YISSEL Negati ve negati ve Not Available [facility] ([facility]) [address] [place], [address], 06/01/2021 16:11:09 05/25/2006/01/2021 NUSWA B VG+, HSV trich vag by YISSEL Negati ve negati ve Not Available [facility] ([facility]) [address] [place], [address], 06/01/2021 16:11:09 05/25/2006/01/2021 NUSWA B VG+, HSV chlamydia trachomatis, YISSEL Negati ve negati ve Not Available [facility] ([facility]) [address] [place], [address], 06/01/2021 16:11:09 05/25/2006/01/2021 NUSWA B VG+, HSV neisseria gonorrhoeae, YISSEL Negati ve negati ve Not Available [facility] ([facility]) [address] [facility], [place], [address], 06/01/2021 16:11:09 05/25/2005/27/2021 STREP GP B YISSEL strep gp B YISSEL Negati ve negati ve Cente rs for Disea se Contr ol and Preve ntion ([facility]) and Alexandra can Congr ess of Obste [...] n is noted . Not Available [facility] ([facility]) [address] [facility], [place], [address], 06/01/2021 16:11:10 Result Notes None recorded. Problems [...] Name and Address Organization Details Recorded Time [id number] Tamiflu medicatio n rash Not available Not available 04/28/2019 18696 7 RxNorm Not Available Not Available Not [...] Updated DateTime 01/29/2018 152.4 cm 28.1 kg/m2 80259.3 g 118 mm[Hg] 80 mm[Hg] Carline Brown MA [facility] 8 11:53:25 Date Recorded Body weight Body mass index (BMI) Body height Systolic blood pressure Diastolic blood pressure Provider Name and Address Organization Details Last Updated DateTime 04/28/2019 12416.52 g 27.5 kg/m2 152.4 cm 118 mm[Hg] 72 mm[Hg] Kory Alarcon [facility] 9 15:58:01 Date Recorded Body height Body mass index (BMI) Body weight Systolic blood pressure Diastolic blood pressure Provider Name and Address Organization Details Last Updated DateTime 07/06/2019 152.4 cm 27.7 kg/m2 66767.12 g 120 mm[Hg] 72 mm[Hg] Karine Iraheta MA [facility] 9 16:38:37 Date Recorded Body weight Systolic blood pressure Diastolic blood pressure Provider Name and Address Organization Details Last Updated DateTime 05/25/2021 89003.49 g 122 mm[Hg] 70 mm[Hg] Karine Iraheta MA [facility] 05/25/2021 10:49:23 Social History Question Answer Notes LastModified by Organizat ion Details LastModified Time Tobacco Smoking Status Never Smoker Carline Brown MA [facility], [facility] 01/29/2018 11:50:53 Do You Have An Advance Directive? No [email or web address] Information not available 01/29/2018 What Is Your Level Of Alcohol Consumption? Occasional [email or web address] Information not available 01/29/2018 Is Blood Transfusion Acceptable In An Emergency? Yes [email or web address] Information not available 01/29/2018 What Is Your Level Of Caffeine Consumption? Moderate [email or web address] Information not available 01/29/2018 How Much Tobacco Do You Chew? None Information not available 01/29/2018 Are You Currently Employed? Yes Information not available 01/29/2018 What Type Of Diet Are You Following? REGULAR Information not available 01/29/2018 Which Illicit Or Recreational Drugs Have You Used? None [email or web address] Information not available 01/29/2018 Do You Or Have You Ever Used E-cigarettes Or Vape? 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 With Others [email or web address] Information not available 01/29/2018 What Was The Date Of Your Most Recent Tobacco Screening? 05/25/2021 Information not available 05/25/2021 How Many Children Do You Have? 1 [email or web address] Information not available 01/29/2018 Performs Monthly Self-breast Exam? No [email or web address] Information no t available 01/29/2018 Do You Use Protection During Sex? Always [email or web address] Information not available 01/29/2018 What Is Your Relationship Status? [email or web address] Information not available 01/29/2018 Seat Belts Used Routinely Yes [email or web address] Information not available 01/29/2018 Are You Sexually Active? Yes [email or web address] Information not available 01/29/2018 Do You Or Have You Ever Used Smokeless Tobacco? Never Used Smokeless Tobacco Information not available 07/07/2019 How Much Tobacco Do You Smoke? No Information not available 07/07/2019 General Stress Level Medium [email or web address] Information not available 01/29/2018 Do You Use Sunscreen Routinely? No [email or web address] Information not available 01/29/2018 On What Date Was Tobacco Cessation Counseling Provided? 05/25/2021 Information not available 05/25/2021 How Many Years Have You Smoked Tobacco? 0 Information not available 07/07/2019 Sex: Unknown Functional Status Question Answer Note LastModified by Organizat ion Details LastModified Time What is your exercise level? Occasional [email or web address] Information not available 01/29/2018 Mental Status None recorded. Family History Relationship Description Onset Age of this Age Resolved Age Notes LastModified by Organization Details LastModified Time Mother Heart disease diabet ic [email or web address] Not available 01/29/2018 11:50:46 Medical History Condition Response Anxiety Disorder Y Ovarian Cancer N Diabetes N Muscle, Joint, or Bone Problems N Blood Transfusions N Seizures/Epilepsy N Polyps N Breast Cancer N Thyroid Problems N Kidney or Bladder Problems N Asthma N Lung Disease N Depression Y Breast Problem N Endometriosis N Liver Disease [...] Recorded Time HPV9 9 completed Not Available [facility] 08/22/2019 02:47:23 Influenza, split virus, quadrivalent, preservative 9 completed Not Available [facility] 08/22/2019 02:41:29 Past Encounters Encounter ID Performer Location Encounter Start Date Encounter Closed Date Diagnosis/Indication Diagnosis SNOMED-CT Code Diagnosis ICD10 Code Diagnosis Note [id number] Kory Baez ([employer]) [address] [place] [phone] 01/29/2018 10:55:47 01/29/2018 12:26:52 Gynecologic examination 34658721 Z01.419 Exposure t o sexually transmissible disorder 066488217 Z20.2 Family britt nning surveillance 942529289 Z30.09 [id number] [facility] [address] [place] [id number] 0 04/28/2019 15:15:31 04/29/2019 14:54:51 Gynecologic examination 18703884 Z01.419 Z11.51 Exposure t o sexually transmissible disorder 038298787 Z20.2 Vaginitis 14703911 N76.0 [id number] Kory Baez ([employer]) [address] [place] [id number] 0 07/06/2019 16:15:50 07/07/2019 09:31:54 Chlamydial infection 756490663 A74.9 Family britt nning surveillance 908869569 Z30.09 HPV - Paulette n papillomavirus test positive 201849409 R87.213 [id number] Kory Baez ([employer]) [address] [place] [address] 05/25/2021 10:36:56 05/29/2021 07:57:59 Gynecologic examination 26288132 Z01.[address] reptococcus carrier 0856041780 103 Z22.330 Chlamydial infection 105 249849 A74.9 Exposure t o sexually transmissible disorder 367904172 Z20.2 Generalize d anxiety disorder 94711879 F41.1 Health Concerns Section Related Observation LastModified by Organization Detai ls LastModified Time None Recorded Concern Status LastModified by Organization Details LastModified Time None Recorded Advance Directives Directive N: Payers Encounter Date Sequence Insurance Name Policy Number Policy [place] Covered Member ID Madear Member ID Guarantor Name 01/29/2018 1 [place] [id number] Nikki Carlozzi [id number] Nikki Carlozzi 04/28/2019 1 [place] [id number] Nikki Carlozzi [id number] Nikki Carlozzi 07/06/2019 1 *SELF PAY* Ni Carlozzi 05/25/2021 1 [place] [id number] Franklin Zuniga [id number] Nikki Carlozzi Notes Date Note Type Note Provider Name and Address Organization Details Recorded Time 01/29/2018 text/html Annual GYNReport ed bypatient.History: no change in interval history; planning in the near future Menstrual cycle:Normal menses Urinary symptoms:No hematuria; No incontinence Vulva:No genital lesion Vagina:Normal vaginal discharge Breast:No breast pain; No breast lump; No nipple discharge Current Contraception:Harlan gamous relationship; Condoms Sexual complaints:Normal libido;Sexual complaints;Pain [...] Domestic Partner Domestic Partner Phone Father Name Radiation Oncology Therapist Status 01/30/20 18 1 CLOSED Fetus Data First Name Last Name Admitted to NICU Weight (g) Sex Living Outcome Pediatric Complications Fetus ID Race Codes Race Delivery Type 2778.25 1 F Full Term [id number] Adan Calculation Initial Adan Date Initial Exam [...]
[2024-11-25] MEDS: LACTATED RINGERS 1,000 ML 125 ML IV CONT ×2 (05:56→07:10)
[2024-11-25] MEDS: ACETAMINOPHEN 500 MG TABLET 1000 MG PO (05:57)
[2024-11-25 06:41] LABS: HIV 1/2 Ab P24 Ag Result Negative (Negative)
--- NOTE | 2024-11-25 07:23 | WPDANESEPPF ---
Anes - Initial Pre Proc Eval Procedure: Operation Date: 11/25/24 07:30 Proposed Procedures p Repeat Section - Juan Jesus MD Date/Time: 11/25/24 07:23 Surgeon: Juan Jesus MD Pre Op Diagnosis: Repeat Patient Data Age: 34 Gender: F Height: 1.55 m Weight: 81 kg Last Vital Signs Temp 36.3 C L 11/25/24 05:57 Pulse 94 11/25/24 06:16 BP 117/83 11/25/24 06:16 Pulse Ox 99 11/25/24 07:00 Allergies Allergy/AdvReac Type Severity Reaction Status Date / Time oseltamivir Allergy Unknown RASH Verified 04/01/19 10:23 Home Medications ?Medication ?Instructions ?Recorded ?Confirmed ?Type ferrous sulfate 325 mg (65 mg 325 mg PO DAILY 11/05/24 11/05/24 History iron) tablet (iron) pantoprazole 40 mg tablet,delayed 40 mg PO QAM acid reflux 11/05/24 11/05/24 History release vit 115-iron fum 29 mg 1 tablet PO DAILY 11/05/24 11/05/24 History iron-folic acid 1 mg-dss 25 mg tablet Laboratory Tests 11/25/24 05:47 HIV 1&2 Ab/P24 Ag 4thGn Negative (Negative) Patient hx anesthesia problems: none Family hx anesthesia problems: none Results Review: All pre-operative results and documents have been reviewed as part of the pre-operative evaluation. [facility] Past Medical History Medical History (Updated 11/25/24 @ 07:23 by Epifanio Nix DO) GDM (gestational diabetes mellitus) Family History Family History (Updated 11/05/24 @ 12:21 by Darcy Maria RN) Grandparent Cerebrovascular accident Grandparent Diabetes mellitus Other Congenital heart failure Social History Social History Substance use: never Spiritual care concerns: No Anes - Eval Final PreProcedure Day of Procedure 11/25/24 07:23 Patient weight: obese Heart: regular rate and rhythm Lungs: clear to auscultation and normal air movement Airway: Mallampati scale class II Neurological: alert and oriented Last oral intake: >/= 8 hours ASA classification: III Emergent: no Anesthetic plan: proceed Anesthesia type and monitoring: regional spinal and standard monitoring Results Review: All pre-operative results and documents have been reviewed as part of the pre-operative evaluation. Informed Consent: The patient's anesthetic plan and its attendant risks and benefits were discussed with the patient/family/POA. Questions were solicited and answers provided to the satisfaction of the patient/family/POA.
[2024-11-25] MEDS: ONDANSETRON INJ 4 MG/2 ML VIAL IV PUSH (07:40)
[2024-11-25] MEDS: FAMOTIDINE 20 MG/2 ML VIAL IV PUSH (07:41)
[2024-11-25] MEDS: ceFAZolin 2 GM/D5W 50 ML 2 GM/50 ML BAG IVPB (07:45)
--- NOTE | 2024-11-25 07:48 | PM.IMHP ---
H&P: HPI History of Present Illness Date/Time: 11/25/24 07:48 Chief Complaint: Term Narrative: 34-year-old multiparous with previous delivery who presents for repeat delivery at term. She understands risks, benefits, and alternatives. She has completed informed consent process was ready to proceed The patient understands the details of the procedure. The procedure has been explained in detail. She understands the risks. She understands that injuries may occur that result in hospitalization, more surgery, and severe illness. She understands risk of hemorrhage and infection. She denies any chest pain or shortness of breath. She denies any nausea, vomiting, fever, chills. Review of Systems Review of Systems: All systems reviewed & are unremarkable except as noted in HPI and below Constitutional: Constitutional: Denies chills, Denies fatigue, Denies fever(s) and Denies weakness Eyes: Eyes: Denies blurry vision, Denies change in vision, Denies loss of peripheral vision, Denies loss of vision, Denies other visual disturbances and Denies eye pain ENT: Denies vertigo, Denies dizziness, Denies hearing loss, Denies mouth pain, Denies nasal obstruction, Denies neck mass and Denies neck pain Cardiovascular: Cardiovascular: Denies chest pain, Denies diaphoresis, Denies syncope, Denies leg edema and Denies dyspnea Respiratory: Respiratory: Denies chest congestion, Denies cough, Denies hemoptysis, Denies dyspnea and Denies wheezing Gastrointestinal: Gastrointestinal: Denies abdominal pain, Denies constipation, Denies diarrhea, Denies nausea and Denies vomiting Genitourinary: Genitourinary: Denies hematuria, Denies change in libido, Denies nocturia, Denies genital lesions, Denies flank pain and Denies urinary urgency Musculoskeletal: Musculoskeletal: Denies abnormal gait, Denies back pain, Denies myalgias, Denies arthralgias, Denies joint swelling, Denies muscle weakness and Denies neck pain Integumentary/Breasts: Skin/Breast: Denies swelling, Denies breast pain, Denies breast mass, Denies dry skin, Denies nipple discharge, Denies unusual bruising and Denies jaundice Neurologic: Denies Neuro-related abnormal movements, Denies Abnormal speech present, Denies abnormal gait, Denies behavioral changes, Denies confusion, Denies vertigo, Denies dizziness, Denies syncope, Denies loss of vision, Denies memory loss, Denies convulsions and Denies weakness Psychiatric: Psychiatric: Denies abnormal sleep pattern, Denies behavioral changes, Denies change in libido, Denies confusion, Denies depression, Denies anhedonia and Denies memory loss Endocrine: Endocrine: Reports no additional endocrine complaints, Denies change in libido and Denies fatigue Hematologic/Lymphatic: Hematologic/Lymphatic: Reports no additional hematologic/lymphatic complaints Allergic/Immunologic: Allergic/Immunologic: Reports no additional allergic/immunologic complaints and Denies wheezing PMFSH Past Medical History Medical History (Updated 11/25/24 @ 07:50 by Juan Jesus MD) GDM (gestational diabetes mellitus) Family History Family History (Updated 11/05/24 @ 12:21 by Darcy Maria RN) Grandparent Cerebrovascular accident Grandparent Diabetes mellitus Other Congenital heart failure Social History Social History Substance use: never Spiritual care concerns: No Meds Home Medications and Allergies Home Medications ?Medication ?Instructions ?Recorded ?Confirmed ?Type ferrous sulfate 325 mg (65 mg 325 mg PO DAILY 11/05/24 11/05/24 History iron) tablet (iron) pantoprazole 40 mg tablet,delayed 40 mg PO QAM acid reflux 11/05/24 11/05/24 History release vit 115-iron fum 29 mg 1 tablet PO DAILY 11/05/24 11/05/24 History iron-folic acid 1 mg-dss 25 mg tablet Allergies Allergy/AdvReac Type Severity Reaction Status Date / Time oseltamivir Allergy Unknown RASH Verified 04/01/19 10:23 Vital Signs Vital Signs - 24 hr 11/25/24 05:38 11/25/24 05:45 11/25/24 05:46 Temperature Pulse Rate 90 93 Blood Pressure 129/84 119/80 Pulse Oximetry 98 11/25/24 05:50 11/25/24 05:55 11/25/24 05:56 Temperature 97.4 F L Pulse Rate Blood Pressure Pulse Oximetry 97 98 11/25/24 05:57 11/25/24 06:00 11/25/24 06:01 Temperature 97.4 F L Pulse Rate 79 Blood Pressure 114/73 Pulse Oximetry 96 11/25/24 06:05 11/25/24 06:10 11/25/24 06:15 Temperature Pulse Rate Blood Pressure Pulse Oximetry 97 98 99 11/25/24 06:16 11/25/24 06:20 11/25/24 06:25 Temperature Pulse Rate 94 Blood Pressure 117/83 Pulse Oximetry 98 99 11/25/24 06:30 11/25/24 06:35 11/25/24 06:40 Temperature Pulse Rate Blood Pressure Pulse Oximetry 99 98 99 11/25/24 06:45 11/25/24 06:50 11/25/24 06:55 Temperature Pulse Rate Blood Pressure Pulse Oximetry 98 98 99 11/25/24 07:00 Temperature 98.3 F Pulse Rate Blood Pressure Pulse Oximetry 99 Exam Const: General: cooperative, healthy appearing, comfortable and no acute distress Orientation/consciousness: oriented to person, oriented to place and oriented to time HENMT: Head: normal to inspection Ears: external ears normal Face/Nose/Sinus: Normal external nose present and normal facial exam Face and sinus: normal facial exam Eyes: General: appearance normal, both eyes and all related structures Neck: Neck: normal visual inspection, trachea midline and supple Resp: Auscultation: clear to auscultation bilaterally, no crackles, no rales, no rhonchi and no wheezes Cardio: Rate: regular rate Rhythm: regular rhythm Heart sounds: no click, no murmurs and no rubs GI: GI Palp: No abdominal tenderness, No Soft to palpation, No Tenderness to palpation present (GI) and No Palpable mass present Auscultation: normal bowel sounds Skin: General skin exam: normal color and no rashes or lesions noted Neuro: General: oriented to person, oriented to place and oriented to time Extrem: General: normal to inspection, no joint enlargement, no clubbing, cyanosis or edema, no pedal edema and no calf tenderness Psych: Appearance: grossly normal Mental Status: mental status grossly normal Speech and movement: Normal speech and movement present Assessment and Plan Assessment and plan (1) delivery delivered: Code(s): O82 - Encounter for delivery without indication Status: Acute Plan 34-year-old multiparous with previous delivery who presents for repeat delivery at term. She understands risks, benefits, and alternatives. She has completed informed consent process was ready to proceed
--- NOTE | 2024-11-25 07:50 | WPDHPUPDATE1 ---
History and Physical Update Update Date/Time: 11/25/24 07:50 History and Physical has been reviewed, including an updated exam of the patient. There are NO changes in the patient's condition. Risks, benefits, and alternatives have been discussed and questions answered. Patient agrees to proceed with procedure.
--- NOTE | 2024-11-25 08:50 | W.PM.OBCSD ---
OB - Delivery Note Procedure Delivery date: 11/25/24 Pre-op diagnosis: Previous Delivery Post-op Diagnosis: Same Induction method: None Delivery monitor: External FHT Procedure Performed: Repeat Surgeon: Juan Jesus MD Anesthesia type: Spinal Description of Procedure/Findings: The patient was taken the operating room.? She was prepped and draped in dorsal supine position with a leftward tilt.? This was done after spinal anesthetic was applied.? A low-transverse skin incision was made and carried down till of the fascia with the knife.? The fascial incision was made with the knife.? The fascial incision was extended laterally with Beck scissors.? The fascia was tented upward superiorly and inferiorly the rectus muscles were dissected off bluntly.? The rectus muscles were the midline.? The preperitoneal fat and peritoneum were dissected open bluntly at the superior aspect of the rectus muscles.? The peritoneal incision was extended superior and inferior with good position of bladder.? The uterine incision was made with a scalpel down to the level of the amniotic cavity.? The amniotic cavity was entered bluntly.? The infant was delivered.? The cord was clamped and cut and the was handed off to waiting pediatric staff.? Cord bloods were obtained.? The placenta was removed manually.? The uterus was exteriorized.? The uterus was cleared of all clots, debris and membranes.? The uterus was closed in 0 Vicryl running lock fashion.? An imbricating over a was placed along the incision line as well.? The uterus was returned to the abdomen.? The gutters were cleared of all clots and debris.? The fascia was closed with 0 Vicryl running fashion.? The subcutaneous tissue was irrigated pinpoint bleeders were cauterized.? The skin was closed with subcuticular absorbable steven.? The skin incision line was covered with glue.? The patient tolerated the procedure well.? She has taken recovery room in stable condition.? Sponge lap and needle counts were correct x2.? Estimated Blood Loss: 240 Packing: No Pathology: None sent Complications: No immediate complications Condition: Stable
[2024-11-25] MEDS: OXYTOCIN 30 UNITS/NS 500 ML 30 UNITS/500 ML BAG 125 UNITS IV CONT (11:10)
[2024-11-25] MEDS: SIMETHICONE 80 MG TAB.CHEW PO ×2 (12:23→17:00)
[2024-11-25] MEDS: KETOROLAC 15 MG/ML VIAL (*BKC) IV PUSH ×2 (12:23→21:24)
[2024-11-25] MEDS: ACETAMINOPHEN 325 MG TABLET 650 MG PO ×2 (12:24→21:24)
[2024-11-25] MEDS: DEXTROSE 5%/0.45% SOD CHL 1,000 ML 125 ML IV CONT (14:38)
[2024-11-25] MEDS: DOCUSATE SODIUM 100 MG CAPSULE PO (17:00)
[2024-11-25] MEDS: HYDROcodone/acetaminophen (*CRX) 5-325 MG TABLET 1 TAB PO (22:20)
--- NOTE | 2024-11-26 04:18 | PM.OBPNVD ---
OB - PN: Subj Subjective Date/time seen: 11/26/24 04:18 Interval history: pp day 1 doing well passing flatus. urinating without difficulty OB - PN: Obj Data Labs Labs: Laboratory Results - last 24 hr 11/25/24 05:47 HIV 1&2 Ab/P24 Ag 4thGn Negative OB - PN A/P Plan day: 1 Plan: routine care Time Spent With Patient Time: Total time spent is greater than 50% in coordination of care (as documented) at patient's floor/unit and/or counseling patient: Review of Systems Review of Systems: All systems reviewed & are unremarkable except as noted in HPI and below Exam Const: General: cooperative Nutritional Appearance: average body habitus Neck: Neck: normal visual inspection Chest: Chest palpation & inspection: normal inspection of the chest Resp: Effort & Inspection: normal respiratory effort GI: Other: incision CDI
[2024-11-26 05:05] LABS: Basophils Percent Auto 0.3 % (0.2-1.2); Eosinophils Absolute Auto 0.1 K/mm3 (0-0.3); Eosinophils Percent Auto 0.5 % (0-4.4); Hematocrit 30.1 % (37.0-47.0); Hemoglobin 9.2 g/dL (12.0-15.0); Immature Granulocyte Absolute 0.09 K/mm3 (0.00-0.031); Immature Granulocyte Percent A 0.9 % (0-0.5); Lymphocytes Absolute Auto 2.26 K/mm3 (0.9-3.2); Lymphocytes Percent Auto 21.5 % (18.3-44.2); Mean Corpuscular HGB Conc 30.6 g/dl (32-36); Mean Corpuscular Hemoglobin 27.4 pg (26-34); Mean Corpuscular Volume 89.6 fl (80-100); Monocytes Absolute Auto 0.7 K/mm3 (0.1-0.6); Monocytes Percent Auto 6.3 % (2.6-8.5); Neutrophils Absolute Auto 7.4 K/mm3 (1.3-6.7); Neutrophils Percent Auto 70.5 % (45.5-73.1); Platelet Count Result 158 k/mm3 (150-375); Red Blood Count 3.36 M/mm3 (4.2-5.4); Red Cell Distribution Width 14.6 % (11.5-14.5); White Blood Count 10.5 K/mm3 (4.5-10.0)
[2024-11-26] MEDS: ACETAMINOPHEN 325 MG TABLET 650 MG PO ×4 (05:41→23:43)
[2024-11-26] MEDS: KETOROLAC 15 MG/ML VIAL (*BKC) IV PUSH ×2 (05:41→12:05)
[2024-11-26] MEDS: PANTOPRAZOLE 40 MG TABLET PO (07:29)
[2024-11-26] MEDS: POLYSACCHARIDE IRON COMPLEX 150 MG CAPSULE PO ×2 (07:29→17:37)
[2024-11-26] MEDS: SIMETHICONE 80 MG TAB.CHEW PO ×3 (07:29→17:37)
[2024-11-26] MEDS: DOCUSATE SODIUM 100 MG CAPSULE PO ×2 (07:29→17:37)
[2024-11-26 08:30] VITALS: BP 105/66; PULSE 66; RESP 16; TEMP 36.8; O2SAT 98
--- NOTE | 2024-11-26 09:15 | WPDANLDPN2 ---
Anes-Prog Note L&D Date/Time: 11/26/24 09:15 Comfortable throughout: section Neuraxial method: spinal Epidural/Spinal procedure site: clean & non-tender Neuro status: Neuro function grossly intact. Cardiovascular status: normal Respiratory status: normal Airway patency: baseline Mental status: baseline Post-Op hydration status: normal Vital Signs: Last Vital Signs Temp 36.4 C L 11/25/24 20:00 Pulse 69 11/25/24 20:00 Resp 16 11/25/24 20:00 BP 108/71 11/25/24 20:00 Pulse Ox 98 11/25/24 20:00 O2 Del Method Room Air 11/26/24 05:18 Pain score (VAS): 08/14 I/O: Intake & Output 11/25/24 11/26/24 11/26/24 23:59 07:59 15:59 Intake Total 1000 Output Total 800 700 Balance 200 -700 Post-procedural complaints: none Patient feedback: Patient satisfied with anesthetic care.
--- NOTE | 2024-11-26 09:16 | WPDANLDNPN2 ---
Anes-Prog Note L&D-Neuraxial Date/Time: 11/26/24 09:16 Neuraxial medications: intrathecal PF morphine Opiod-related complaints: none Patient feedback: Patient satisfied with post-operative pain management.
[2024-11-26] MEDS: IBUPROFEN 600 MG TABLET PO ×2 (17:37→23:43)
[2024-11-26 18:55] VITALS: BP 124/69; PULSE 78; RESP 18; TEMP 36.6; O2SAT 99
[2024-11-26] MEDS: HYDROcodone/acetaminophen (*CRX) 10-325 MG TABLET 1 TAB PO (19:36)
[2024-11-26] MEDS: LIDOCAINE 5% PATCH 1 PATCH TRANSDERM (23:43)
[2024-11-27] MEDS: IBUPROFEN 600 MG TABLET PO ×2 (05:15→11:41)
[2024-11-27] MEDS: ACETAMINOPHEN 325 MG TABLET 650 MG PO ×2 (05:15→11:41)
[2024-11-27 07:30] VITALS: BP 128/83; PULSE 86; RESP 16; TEMP 36.7; O2SAT 99
--- NOTE | 2024-11-27 07:38 | P.PNOB_ITS ---
OB - PN: Subj Subjective Date/time seen: 11/27/24 07:38 Interval history: pp day 2 doing well passing flatus. urinating without difficulty desires d/c home OB - PN: Obj Data Labs 11/26/24 04:48 OB - PN A/P Plan day: 1 Plan: routine care and discharge home Time Spent With Patient Time: Total time spent is greater than 50% in coordination of care (as documented) at patient's floor/unit and/or counseling patient: Review of Systems 2 Review of Systems: All systems reviewed & are unremarkable except as noted in HPI and below Exam 2 Const: General: cooperative, healthy appearing and comfortable Chest: Chest palpation & inspection: normal inspection of the chest Resp: Effort & Inspection: normal respiratory effort GI: Other: incision CDI Back/Spine/Pelvis: Back: no CVA tenderness Skin: General skin exam: normal color
--- NOTE | 2024-11-27 07:41 | P.DS_ITS ---
DS: Admitting Diagnosis Discharge Date 11/27/24 Admitting Diagnosis repeat section DS: Discharge Diagnosis Discharge Diagnosis (1) delivery delivered: Code(s): O82 - Encounter for delivery without indication Status: Acute OB - DS: Summary OB Procedures : None OB Procedures Intrapartum: Spontaneous Vag Delivery OB Procedures: : None Peripartum Data Procedures: Procedures Operation Date: 11/25/24 07:30 Actual Procedure Side Surgeon p Repeat Section Juan Jesus MD Time Spent with Patient Time attestation: Total time spent providing and/or coordinating discharge services: Discharge Plan Discharge Attending physician on discharge: Juan Jesus Discharging Clinician: Kayla Talbert Patient Disposition: Home Activity: pelvic rest Diet: regular Patient Instructions: Antibiotic Form Patient Language: Luxembourgish Stand Alone Forms: General Discharge Information Follow-up/Referrals: Juan Jesus MD [Physician] - 1 Week Discharge Medications: New hydrocodone-acetaminophen 5-325 mg Tablet 1 tablet PO Q3H PRN (Reason: Breakthrough Pain Rated 4-6) 10 Days Qty: 25 0RF Continued pantoprazole 40 mg tablet,delayed release (DR/EC) 40 mg PO QAM ferrous sulfate [iron] 325 mg (65 mg iron) tablet 325 mg PO DAILY prenat 115-iron chx-idgza-vyo 29 mg iron- 1 mg-25 mg tablet 1 tablet PO DAILY Date of admission: 11/25/24 05:27 Primary Care Provider: UNKNOWN,DOCTOR Admitting Provider: Juan Jesus Attending physician on admission: Juan Jesus Condition: Stable
[2024-11-27] MEDS: POLYSACCHARIDE IRON COMPLEX 150 MG CAPSULE PO (08:35)
[2024-11-27] MEDS: SIMETHICONE 80 MG TAB.CHEW PO ×2 (08:36→11:41)
[2024-11-27] MEDS: PANTOPRAZOLE 40 MG TABLET PO (08:36)
[2024-11-27] MEDS: DOCUSATE SODIUM 100 MG CAPSULE PO (08:36)
--- NOTE | 2024-11-27 09:50 | PC.NURSE ---
Patient viewed the discharge video [facility], The First Two Weeks . Patient was given the opportunity and encouraged to ask questions. Patient verbalized understanding of information shared and has been given the mother/baby guide for home reference.
[2024-11-27] MEDS: HYDROcodone/acetaminophen (*CRX) 5-325 MG TABLET 1 TAB PO (12:57)
[2024-11-28 10:17] VITALS: BP 127/66; PULSE 83; RESP 18; TEMP 36.9; O2SAT 100
== END 2024-11-27 13:07 | disposition home or self-care (01) | DRG 788 ==
LOC: ANHLDR 05:29 → ANHOB2 11:00
PROVIDERS: Admitting Provider Obstetrics & Gynecology; Visit Provider Obstetrics & Gynecology
PROC: 10D00Z1 Extraction of Products of Conception, Low, Open Approach (ICD-10-PCS; CPT 59514; principal; 2024-11-25 07:30)
DX: O34.211 Maternal care for low transverse scar from previous cesarean delivery (principal); Z37.0 Single live birth; Z3A.39 39 weeks gestation of pregnancy
CPT/HCPCS: 36415; 85025; 86703; A9270; G0432; J0690; J1100; J1596; J1885; J2274; J2371; J2405; J2590; J7120

== ENCOUNTER 2025-05-13 06:25 | Emergency (ER) | payer OTHER, SELFPAY ==
--- NOTE | ~2025-05-13 | US_ITS ---
ULTRASOUND ABDOMEN LIMITED (RIGHT UPPER QUADRANT) Clinical History: Biliary colic Comparison: None Technique: Right upper quadrant sonography Findings: Liver: Normal size. Echogenic. No intrahepatic biliary ductal dilatation. Normal hepatopedal flow main portal vein. Common Duct: Normal caliber. 4 mm. Gallbladder: Stones. Wall thickening, nonspecific. No pericholecystic fluid. Negative sonographic Kulkarni's technologist report. Pancreas: Visualized portions unremarkable. IMPRESSION: 1. Cholelithiasis. No evidence of acute cholecystitis. If clinical ambiguity, recommend HIDA scan. 2. Hepatic steatosis and/or hepatocellular disease. Reviewed, dictated and finalized at location R.
[2025-05-13 06:27] VITALS: BP 130/77; PULSE 85; RESP 14; TEMP 36.8; O2SAT 99
[2025-05-13 07:31] LABS: BEDSIDEPREGUCG Negative (Negative)
[2025-05-13 07:39] LABS: Hematocrit 39.9 % (37.0-47.0); Hemoglobin 12.7 g/dL (12.0-15.0); Immature Granulocyte Percent A 0.4 % (0-0.5); Lymphocytes Absolute Auto 1.58 K/mm3 (0.9-3.2); Mean Corpuscular HGB Conc 31.8 g/dl (32-36); Mean Corpuscular Hemoglobin 26.4 pg (26-34); Mean Corpuscular Volume 83.0 fl (80-100); Nucleated Red Blood Cells Absolute Auto 0.000 K/mm3 (0.0-0.012); Nucleated Red Blood Cells Perc 0.0 % (0.0-0.2); Platelet Count Result 333 k/mm3 (150-375); Red Blood Count 4.81 M/mm3 (4.2-5.4); White Blood Count 10.8 K/mm3 (4.5-10.0)
[2025-05-13 07:44] LABS: Add Urine Microscopic? YES; Appearance Urine Cloudy (Clear); Glucose Urine UA Negative (Negative); Leukocyte Esterase Ur Negative LEU/UL (Negative); Nitrate Urine Negative (Negative); Non Pathogenic Casts 0-2; Specific Grav Ur 1.026 (1.001-1.035)
[2025-05-13 07:59] LABS: Alanine Aminotransferase 15 U/L (6-35); Albumin Level 4.1 g/dL (3.5-5.1); Alkaline Phosphatase 111 U/L (38-126); Anion Gap 5 mmol/L (4-12); Aspartate Amino Transferase 29 U/L (14-36); Bilirubin,Total 0.5 mg/dL (0.2-1.3); Blood Urea Nitrogen 15 mg/dL (7-17); Calcium 10.1 mg/dL (8.4-10.2); Carbon Dioxide 28 mmol/L (22-30); Chloride 103 mmol/L (98-107); Estimated Glomerular Filt Rate > 60; Glucose 117 mg/dL (65-110); Lipase 51 U/L (23-300); Potassium 4.1 mmol/L (3.4-5.0); Sodium 136 mmol/L (137-145); Total Protein 7.5 g/dL (6.3-8.2)
[2025-05-13 09:30] VITALS: BP 131/85; PULSE 79; RESP 18; TEMP 36.7; O2SAT 100
--- NOTE | 2025-05-13 11:17 | ED.GENADULT ---
HPI - General Adult General Chief complaint: Abdominal Pain Stated complaint: Abd pain x 2 hours Time Seen by Provider: 05/13/25 10:23 History of Present Illness HPI narrative: [age] old female presents to the emergency department for evaluation for right upper quadrant abdominal pain. Patient has been having intermittent right upper quadrant pain since approximately November. Patient was started on pantoprazole and did feel this helped but this is no longer helping. Patient reports sometimes her symptoms are worsened with eating greasy foods but sometimes worsened just with eating a healthier diet as well. Patient had onset of symptoms that were about 2 hours prior to arrival but has since resolved. At time of initial evaluation patient reports all symptoms have resolved. Patient denies any current nausea vomiting or abdominal pain. Patient was well-appearing at time of initial evaluation. Related Data Home Medications ?Medication ?Instructions ?Recorded ?Confirmed ?Last Taken ?Type ferrous sulfate 325 mg (65 mg 325 mg PO DAILY 11/05/24 11/05/24 11/05/24 History iron) tablet (iron) pantoprazole 40 mg tablet,delayed 40 mg PO QAM acid reflux 11/05/24 11/05/24 11/05/24 History release vits 115-iron fum 29 mg 1 tablet PO DAILY 11/05/24 11/05/24 11/05/24 History iron-folic acid 1 mg-dss 25 mg tablet Allergies Allergy/AdvReac Type Severity Reaction Status Date / Time oseltamivir Allergy Unknown RASH Verified 04/01/19 10:23 Review of Systems Review of Systems: All systems reviewed & are unremarkable except as noted in HPI and below PMFSH Past Medical History Medical History (Updated 05/13/25 @ 12:22 by Ezequiel Kuo MD) GDM (gestational diabetes mellitus) Family History Family History (Updated 11/05/24 @ 12:21 by Darcy Maria RN) Grandparent Cerebrovascular accident Grandparent Diabetes mellitus Other Congenital heart failure Social History Social History Substance use: never Spiritual care concerns: No Exam Narrative: APPEARANCE: Well appearing, no pain, no distress, well-nourished. HEAD: normocephalic, atraumatic. EYES: PERRLA/EOMI, conjunctivae clear. NOSE: Normal no drainage EARS:TMS clear with good light reflex. THROAT: Pharynx clear, no exudate. NECK: Supple. No adenopathy, no masses. RESPIRATORY: Airway patent, respirations nonlabored. Clear to auscultation bilaterally, no rales, rhonchi, wheezing. CARDIOVASCULAR: Regular rate and rhythm without murmurs rubs or gallops. ABDOMINAL: Soft, nontender, nondistended, normal bowel sounds MUSCULOSKELETAL: Moves all extremities. Strength/ROM intact, No edema, No calf tenderness. NEURO: Alert. Cranial nerves II through XII intact. Good gait. Good coordination SKIN: Warm, dry. Normal Color Course Vital Signs Vital signs: Vital Signs Temperature 98.2 F 05/13/25 06:27 Pulse Rate 85 05/13/25 06:27 Respiratory Rate 14 05/13/25 06:27 Blood Pressure 130/77 05/13/25 06:27 Pulse Oximetry 99 05/13/25 06:27 Oxygen Delivery Room Air 05/13/25 06:27 Temperature 98.0 F 05/13/25 09:30 Pulse Rate 72 05/13/25 12:45 Respiratory Rate 16 05/13/25 12:45 Blood Pressure 124/76 05/13/25 12:45 Pulse Oximetry 100 05/13/25 12:45 Oxygen Delivery Room Air 05/13/25 06:27 Medical Decision Making [facility] Narrative Medical decision making narrative: 34-year-old female present to the emergency department for evaluation for upper quadrant abdominal pain. Patient is afebrile but does have a leukocytosis of 10.8 hemoglobin 12.7. Patient has no elevation in T bili ALT AST alk falls or lipase. On evaluation patient has no tenderness to palpation of the right upper quadrant but patient does describe a history concerning for biliary colic. Patient does have high red blood cells in her urine, patient denies any prior history of ureteral calculi and patient is currently menstruating. Patient's ultrasound was negative for acute cholecystitis but did show evidence of cholelithiasis. Patient will be provided medication for nausea control and pain control. Patient is currently pain-free. Patient will also be encouraged to have close follow-up with surgery. All questions concerns addressed patient was well-appearing at time of discharge. Differential Diagnosis Differential Diagnosis: Cholelithiasis, acute cholecystitis, gastritis, pancreatitis esophagitis, colitis Vital Signs Vital Signs: Vital Signs Temperature 98.2 F 05/13/25 06:27 Pulse Rate 85 05/13/25 06:27 Respiratory Rate 14 05/13/25 06:27 Blood Pressure 130/77 05/13/25 06:27 Pulse Oximetry 99 05/13/25 06:27 Oxygen Delivery Room Air 05/13/25 06:27 Temperature 98.0 F 05/13/25 09:30 Pulse Rate 72 05/13/25 12:45 Respiratory Rate 16 05/13/25 12:45 Blood Pressure 124/76 05/13/25 12:45 Pulse Oximetry 100 05/13/25 12:45 Oxygen Delivery Room Air 05/13/25 06:27 Lab Data Lab results reviewed: Yes I reviewed the patient's lab results. 05/13/25 07:26 05/13/25 07:26 Labs: Lab Results 05/13/25 05/13/25 Range/Units 07: 07:29 WBC 10.8 H (4.5-10.0) K/mm3 RBC 4.81 (4.2-5.4) M/mm3 Hgb 12.7 D (12.0-15.0) g/dL Hct 39.9 (37.0-47.0) % MCV 83.0 (80-100) fl MCH 26.4 (26-34) pg MCHC 31.8 L (32-36) g/dl RDW 13.3 (11.5-14.5) % Plt Count 333 D (150-375) k/mm3 MPV 10.2 (7.4-10.4) fl Immature Gran % (Auto) 0.4 (0-0.5) % Neut % (Auto) 78.0 H (45.5-73.1) % Lymph % (Auto) 14.7 L (18.3-44.2) % [place] % (Auto) 4.9 (2.6-8.5) % Eos % (Auto) 1.6 (0-4.4) % Baso % (Auto) 0.4 (0.2-1.2) % Lymph # (Auto) 1.58 (0.9-3.2) K/mm3 [place] # (Auto) 0.5 (0.1-0.6) K/mm3 Eos # (Auto) 0.2 (0-0.3) K/mm3 Baso # (Auto) 0.0 (0.0-0.1) K/mm3 Abs Immat Gran (auto) 0.04 H (0.00-0.031) K/mm3 Absolute Neuts (auto) 8.4 H (1.3-6.7) K/mm3 Absolute Nucleated RBC 0.000 (0.0-0.012) K/mm3 Nucleated RBC % 0.0 (0.0-0.2) % Sodium 136 L (137-145) mmol/L Potassium 4.1 (3.4-5.0) mmol/L Chloride 103 (98-107) mmol/L Carbon Dioxide 28 (22-30) mmol/L Anion Gap 5 (4-12) mmol/L BUN 15 (7-17) mg/dL Creatinine 0.73 (0.7-1.0) mg/dL Estim Creat Clear Calc Not Reportable Estimated GFR > 60 (59 - ) Glucose 117 H (65-110) mg/dL Calcium 10.1 (8.4-10.2) mg/dL Total Bilirubin 0.5 (0.2-1.3) mg/dL AST 29 (14-36) U/L ALT 15 (6-35) U/L Alkaline Phosphatase 111 (38-126) U/L Total Protein 7.5 (6.3-8.2) g/dL Albumin 4.1 (3.5-5.1) g/dL Lipase 51 (23-300) U/L Urine Color Yellow (Yellow) Urine Appearance Cloudy H (Clear) Urine pH 5.5 (5.0-9.0) Ur Specific [place] 1.026 (1.001-1.035) Urine Protein Negative (Negative) mg/dL Urine Glucose (UA) Negative (Negative) mg/dL Urine Ketones Trace H (Negative) mg/dL Ur Blood (Man) 3+ H (Negative) Urine Nitrate Negative (Negative) Urine Bilirubin Negative (Negative) Urine Urobilinogen 1.0 (<2.0) mg/dL Leukocyte Esterase Rfl Negative (Negative) [place]/UL Urine RBC 21-50 H (0-2) /hpf Urine WBC 0-5 (0-3) /hpf Ur Squamous Epith Cells Moderate (Few) /hpf Urine Bacteria Rare /hpf Urine Casts 0-2 POC Urine HCG, Qual Negative (Negative) Imaging Data Radiologist's impression: Impressions Abdomen Ultrasound 05/13/25 12:06 IMPRESSION: 1. Cholelithiasis. No evidence of acute cholecystitis. If clinical ambiguity, recommend HIDA scan. 2. Hepatic steatosis and/or hepatocellular disease. Discharge Plan Discharge Clinical Impression: Biliary colic, Cholelithiasis Patient Disposition: Home Condition: Stable Instructions: Antibiotic Form, Biliary Colic (ED), Abdominal Pain (ED) Additional Instructions: Follow low-fat diet. Zofran for nausea control. [place] as needed for pain control. Have close follow-up with surgery. If you have any worsening symptoms then please call or return to the emergency department. Your physicians may wish to order an outpatient HIDA scan. Patient Language: Albanian Prescriptions: New hydrocodone-acetaminophen 5-325 mg tablet 1 tablet PO Q12H PRN (Reason: pain) Qty: 14 0RF ondansetron 4 mg tablet,disintegrating 4 mg PO Q8H PRN (Reason: nausea and vomiting) Qty: 14 0RF No Action pantoprazole 40 mg tablet,delayed release (DR/EC) 40 mg PO QAM ferrous sulfate [iron] 325 mg (65 mg iron) tablet 325 mg PO DAILY PNV 115-iron [id number] 29 mg iron- 1 mg-25 mg tablet 1 tablet PO DAILY hydrocodone-acetaminophen 5-325 mg Tablet 1 tablet PO Q3H PRN (Reason: Breakthrough Pain Rated 4-6) 10 Days Qty: 25 0RF Follow-up/Referrals: Sary Silva MD [Physician, General Surgery] UNKNOWN,DOCTOR [Primary Care Provider]
[2025-05-13 12:45] VITALS: BP 124/76; PULSE 72; RESP 16; O2SAT 100
== END 2025-05-13 12:47 | disposition home or self-care (01) ==
PROVIDERS: Student in an Organized Health Care Education/Training Program; Emergency Provider Emergency Medicine
DX: K80.20 Calculus of gallbladder without cholecystitis without obstruction (principal); K76.0 Fatty (change of) liver, not elsewhere classified; K76.9 Liver disease, unspecified
CPT/HCPCS: 36415; 76705; 80053; 81001; 81025; 83690; 85025; 99284

== ENCOUNTER 2025-05-26 10:47 | Outpatient (CLI) | payer OTHER, SELFPAY ==
[2025-05-26 11:35] LABS: Hematocrit 40.8 % (37.0-47.0); Hemoglobin 12.6 g/dL (12.0-15.0); Mean Corpuscular HGB Conc 30.9 g/dl (32-36); Mean Corpuscular Hemoglobin 26.4 pg (26-34); Mean Corpuscular Volume 85.5 fl (80-100); Platelet Count Result 301 k/mm3 (150-375); Red Blood Count 4.77 M/mm3 (4.2-5.4); White Blood Count 5.1 K/mm3 (4.5-10.0)
[2025-05-26 12:03] LABS: Albumin Level 4.3 g/dL (3.5-5.1); Alkaline Phosphatase 273 U/L (38-126); Anion Gap 7 mmol/L (4-12); Bilirubin,Total 1.0 mg/dL (0.2-1.3); Blood Urea Nitrogen 14 mg/dL (7-17); Calcium 9.2 mg/dL (8.4-10.2); Carbon Dioxide 28 mmol/L (22-30); Chloride 103 mmol/L (98-107); Estimated Glomerular Filt Rate > 60; Glucose 109 mg/dL (65-110); Potassium 4.7 mmol/L (3.4-5.0); Sodium 138 mmol/L (137-145); Total Protein 7.6 g/dL (6.3-8.2)
[2025-05-26 12:41] LABS: Alanine Aminotransferase 839 U/L (6-35); Aspartate Amino Transferase 1176 U/L (14-36)
--- OUTSIDE RECORDS SUMMARY | 2025-05-26 13:33 | XMS_ITS | Clinical Summary ---
Author Organization 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32 08/20/2022 10:21 AM ROUTER OPERATOR PIN Plan of Treatment Health Maintenance Due Date [...] th HPV 2020 COVID-19 Vaccine (3 - 2024-2 6 season) 2025 09/13/2021, 08/16/2021 Influenza Adult (#1) 2025 07/06/2019 Hepatitis A Vaccines Aged Out No long er eligible based on patient's age to complete this topic Meningococcal B Vaccine Aged Out No l [...] to complete this topic Insurance Care Teams Contact Agent Relationship Specialty Start Date End Date Darrin Rowell MD [address] [place] [address] PCP - General FAMILY PRACTICE 08/20/22
--- OUTSIDE RECORDS SUMMARY | 2025-05-26 13:33 | XMS_ITS | Data Portability ---
Author Organization [facility] Address [address] [place] [address] Care Team Providers Care Impregnator Name Role Phone MANUEL SKINNER Primary Care Provider Assessment Encounter Date Assessment Date Assessment LastModified by Organization Details LastModified Time 04/22/2025 04/22/2025 Annual gynecological exam performed. Patient will come back in a year unless there are new symptoms. [email or web address] Not available 04/22/2025 09:43:48 Plan of Treatment Reminders Order Date Submit Date Provider Last Modified By Organization Details Last Modified Time Details Appointments None recorded. Lab culture, urine 2024 025 [facility] (Lab), [address], [place], [address], 22:39:51 unlisted lab - women's health swab, YISSEL 2024 025 [facility] (Lab), [address], [place], [address], 10:49:33 Referral None recorded. Procedures None recorded. Surgeries None recorded. Imaging None recorded. Medication Orders Macrobid 100 mg capsule 2024 025 [id number], [address], [place], [address], 10:01:43 pantoprazol e 40 mg tablet,jessy yed release 2024 025 [facility][id number], [address], [place], [address], 10:12:42 Patient TargetsNo targets recorded. Patient InstructionsNo instructions [...] Type: Vagin al/Re ctal Speci men Date: 025 1310 Resul t Date: 025 1408 Resul t Statu s: Final resul t Abnor mal: No Resul ting Lab: [facility] [address] [address] Tel: CULTU RE ----- ----- ----- --- No Group B strep isola griselda at 2 days (cheryl ctive broth enhan cemen t) Not Available [facility] (Lab) [address] [place], [address], 11/08/2024 15:11:18 04/22/2004/22/2025 [facility] YISSEL justin species, tma Negati ve negati ve Not Available [facility] (Lab) [address] [place], [address], 04/24/2025 10:49:33 04/22/2004/22/2025 [facility] H SWAB, YISSEL justin glabrata, tma Negati ve negati ve Not Available [facility] (Lab) [address] [place], [address], 04/24/2025 10:49:33 04/22/2004/22/2025 [facility], YISSEL trichomonas vaginalis, tma Negati ve negati ve This assay tests for and diffe renti brian martins en Anum da glabr sachin, the Anum da speci es group (C. albic ans, C. tropi calis , C. parap hannah is, C. dubli niens is), and Trich omona s vagin rianna by Trans cript ion-M ediat ed Ampli ficat ion (TMA) . Not Available [facility] (Lab) [address] [place], [address], 04/24/2025 10:49:33 04/22/2004/22/2025 [facility] SW[facility], YISSEL bacterial vaginosis (bv), tma Positi ve negati ve abnormal This test detec ts ribos omal RNA from bacte alexandra assoc iated with bacte rial vagin osis (BV), inclu ding Lacto bacil nehal (L. gasse ri, L. crisp atus and L. jense cuco), Gardn erell a vagin rianna, and Atopo bium vagin ae by Trans cript ion-M ediat ed Ampli ficat ion (TMA) . A singl e quali tativ e resul t is repor griselda based on instr ument softw are to deter mine BV posit pepito or negat pepito statu s. Not Available [facility] (Lab) [address], [place], [address], 04/24/2025 10:49:33 05/20/2005/20/2025 CULTU RE: URINE result report SEE RESULT S BELOW Test: Cultu re: Urine Speci men Sourc e: Urine - Clean Catch Speci men Type: Urine Speci men Date: 05/20 1020 Resul t Date: 05/216 Resul t Statu s: Final resul t Abnor mal: No Resul ting Lab: [facility] [address] [address] Tel: CULTU RE ----- ----- ----- --- No growt h in 1 day (dete ction level of 10,00 0 colon ies / ml.) Not Available [facility] (Lab) [address], [place], [address], 05/21/2025 22:39:51 Result Notes None recorded. Problems Name Problem SNOMED Code Status Onset Date Resolution Date Notes Provider Name and Address Organization Details Recorded Time Deliveri es by [id number] Completed TO REPEAT Loulou banuelos, [facility] 5 06:58:38 Gastric reflux 380291490 Completed prescrib ed Protonix 40 mg Loulou banuelos [facility] 5 06:58:38 Low-lyin g placenta 108726143 Active Rpt us , pelvic rest Juan Jesus MD [address] , [place], [address], [facility] 12:03:47 Blood glucose outside referenc e range 719095710 Completed failed 1hr gtt (fasted for 12hrs) per Dr Ann Marie omer checking BS QID Loulou banuelos, [facility] 5 06:58:38 Blood glucose outside referenc e range 080831623 Active failed 1hr gtt (fasted for 12hrs) per Dr Ann Marie omer checking BS QID Loulou banuelos, [facility] 5 06:58:38 Pregnanc y 18209541 Completed 202312/02/2024 Dionne banuelos, [facility] 5 14:09:36 Problem Notes None recorded. Procedures Surgical History Date Name Laterality Status Provider Name and Address Organization Details Recorded Time 11/26/19 25 SECTION (SURG) completed Loulou Locke [facility] 11/29/2024 07:57:20 11/08/19 23 Date of Last [facility] 05/07/2024 11:57:36 05/16/20 22 Colposcopy completed Jazmín Hicks MD [address], [place], [address], [facility] 05/18/2022 10:26:25 03/23/[address] [facility] 05/07/2024 12:01:52 Imaging Results None recorded. Procedure Notes None recorded. Medical Equipment None Reported. Allergies Allergen ID Allergen Name Allergen Category Reaction Reaction Severity Criticality Documentation Date Start Date Code Code System Note Provider Name and Address Organization Details Recorded Time 18925 Tamiflu medicatio n rash mild Not available 05/07/2024 21429 7 RxNorm [facility] 11:55:37 Medications Name Sig Start Date Stop Date Status Note LastModified by Organization Details LastModified Time cyclobenzap rine 10 mg tablet TAKE 1 TABLET BY MOUTH EVERY 8 HOURS 04/17 completed Not Available Not Available Not Available amoxicillin 500 mg capsule TAKE 1 CAPSULE BY MOUTH TWICE A DAY 05/07 completed Not Available Not Available Not Available fluconazole 150 mg tablet TAKE 1 TABLET BY MOUTH EVERY 72 HOURS 12/18 completed Not Available Not Available Not Available FreeStyle Test strips check blood sugars QID 11/05 completed Not Available Not Available Not Available hydrocodone 5 mg-acetamin ophen 325 mg tablet TAKE 1 TABLET BY MOUTH EVERY 12 HOURS NEEDED FOR PAIN active Not Available Not Available No t Available metronidazo le 0.75 % (37.5 mg/5 [...] Not Available metronidazo le 500 mg tablet Take 1 tablet twice a day by oral route for 7 days. 05/12 completed Not Available Not Available Not Available amoxicillin 500 mg tablet TAKE 1 TABLET BY MOUTH EVERY 8 HOURS FOR 10 DAYS 09/24 completed Not Available Not Available Not Available Macrobid 100 mg capsule Take 1 capsule every 12 hours by oral route for 7 days. 2024 active Not Available Not Available Not Avai lable phenazopyri dine 100 mg tablet TAKE 1 [...] completed Not Available Not Available Not Available ondansetron 4 mg disintegrat ing tablet TAKE 1 TABLET BY MOUTH EVERY 8 HOURS NEEDED FOR NAUSEA AND VOMITING active Not Available Not Available No t Available doxycycline hyclate 100 mg tablet TAKE [...] completed Not Available Not Available Not Available Junel FE 1/20 (28) 1 mg-20 mcg (21)/75 mg (7) tablet TAKE 1 TABLET BY MOUTH EVERY DAY 11/07 completed Not Available Not Available Not Available 04/22 completed Not Available Not Available Not Available [...] Body mass index (BMI) Body weight Systolic And Diastolic Provider Name and Address Organization Details Last Updated DateTime 12/02/2024 165.1 cm 28.3 kg/m2 43154.7 g 129/85 mm[Hg] [facility] 12/02/2024 14:08:40 Date Recorded Body height Body mass index (BMI) Body weight Systolic And Diastolic Provider Name and Address Organization Details Last Updated DateTime 12/18/2024 165.1 cm 26.8 kg/m2 92187.37 g 123/84 mm[Hg] [facility] 12/18/2024 15:00:05 Date Recorded Body height Body mass index (BMI) Body weight Systolic And Diastolic Provider Name and Address Organization Details Last Updated DateTime 04/22/2025 165.1 cm 27 kg/m2 28679.68 g 114/78 mm[Hg] [facility] 04/22/2025 09:53:05 Date Recorded Body height Body mass index (BMI) Body weight Systolic And Diastolic Provider Name and Address Organization Details Last Updated DateTime 05/20/2025 165.1 cm 27.3 kg/m2 84283.43 g 124/84 mm[Hg] [facility] 05/20/2025 09:54:56 Social History Question Answer Notes LastModified by Organizat ion Details LastModified Time Tobacco Smoking Status Never Smoker Merry banuelos [facility] 04/17/2023 14:03:22 Do You Have An Advance Directive? No Information n ot available 11/07/2022 How Many Years Have You Consumed Alcohol? [...] Or The Highest Degree You Have Received? [id number] Information not available 11/07/2022 Are There Any Guns Present In Your Home? No Information not available 11/07/2022 Have You Ever Been Counseled For Unhealthy Alcohol Use? No [email or web address] Information not available 04/17/2023 Do You Use Protection During Sex? No Information not available 11/07/2022 Do You Use Your Seat Belt Or Car Seat Routinely? Yes Information not available 11/07/2022 Do You Have Smoke And Carbon Monoxide Detectors In Your Home? Yes Information not available 11/07/2022 How Much Tobacco Do You Smoke? No Information not available 11/07/2022 Do You Use Sunscreen Routinely? No Information not available 11/07/2022 Has Tobacco Cessation Counseling Been Provided? No [email or web address] Information not available 04/17/2023 Have You Used IV Drugs? No Information not available 11/07/2022 Do You Have Difficulty Walking Or Climbing Stairs? No [email or web address] Information not available 04/17/2023 Sex: Unknown Functional Status Question Answer Note LastModified by Organizat ion Details LastModified Time Do you use any illicit or recreational drugs? No Information not available 10/13/2021 Do you or have you ever used any other forms of tobacco or nicotine? No [email or web address] Information not available 04/17/2023 What is your level of alcohol consumption? Occasional Information not available 10/13/2021 Are you able to walk independently without assistance or assistive devices? [email or web address] Information not available 11/07/2022 Are you able to care for yourself independently? Yes [email or web address] Information not available 04/17/2023 What is your occupation? [employer] Information not available 11/07/2022 Do you have difficulty dressing, bathing, grooming, or toileting? No [email or web address] Information not available 04/17/2023 What is your exercise level? Occasional Information not available 11/07/2022 Mental Status Question Answer Note LastModified by Organization D etails LastModified Time Do you feel stressed (tense, restless, nervous, or anxious, or unable to sleep at night)? [id number] Information not available 11/07/2022 Family History Relationship Description Onset Age of this Age Resolved Age Notes LastModified by Organization Details LastModified Time Mother Hypertensive disorder [email or web address] Not available 2023 11:23:53 Mother Heart disease [email or web address] Not available 2023 11:23:53 Mother Diabetes mellitus [email or web address] Not available 2023 11:23:53 Medical History Condition Response Allergies (Food, seasonal, environmental ) N Other N Blood Transfusion N Breast Cancer N Drug/Latex Allergies/Reactions N Lung Disease N Dermatologic Disorders N Defects or Inherited Disease N Breast Problem N Gestational Diabetes N Hematologic disorders N Anesthesia Complications N History of STI Y Deep Vein Thrombosis N Polycystic ovary syndrome N Anxiety Disorder Y Autoimmune disease N Arthritis N Polyps N Infertility N History of abnormal pap Y Acid Reflux (GERD) N Cancer N Varicosities N Stroke N Neurologic/Epilepsy N Endometriosis N High Cholesterol N Headaches N Fibromyalgia N Kidney Disease N Heart Problems N Thyroid Problems N Kidney or Bladder Problems N GI Problems N Eating Disorder N Anemia N Art (IVF or FET) N Psychiatric Illness N Ovarian Cancer N Diabetes N Pulmonary (TB, Asthma) N Hepatitis/Liver Disease Y No Past Medical History N Eczema N Urinary Tract Infection N Abuse/Domestic Violence N Asthma N Trauma/Violence N Depression/ depression N Heart Disease N Pre-Eclampsia N Hypertension N Osteoporosis N Thrombophilias N Gynecological History Statement/Question Response Flow Moderate Date of LMP 05/07/2025 N Was last menstrual period normal N STIs/STDs Y Date of Last Colonoscopy BCPs Desired Control Method None On BCP's at Conception? N HPV Vaccine Y Duration of Flow (days) 7 Current Control Method None Age at First Child 20 Are cycles usually normal Y Frequency of Cycle (Q days) 30 Most Recent Bone Density Sexually Active? Y Menses Monthly Y Date of DEXA bone scan Age of first menstrual cycle 9 Date of Last Pap Smear 11/07/2022 Sexual Problems? N LMP Definite N Obstetrics History GPAL:G 2 P 2 0 0 2 Type Value Full Term 2 Living 2 Total 2 Past Encounters Encounter ID Performer Location Encounter Start Date Encounter Closed Date Diagnosis/Indication Diagnosis SNOMED-CT Code Diagnosis ICD10 Code Diagnosis IMO Codes Diagnosis Note [id number] Jazmín Hicks MD [place] [address] [address] 10/13/2021 13:41:48 10/20/2021 14:34:55 Bacterial vaginosis 975495944 N76.0 Abnormal c ervical Papanicolaou smear 609678623 R87.619 Postcoital bleeding 4888 0000 N93.0 Vaginal odor 257030768 N 89.8 [id number] Jazmín Hicks MD [place] [address] [address] 12/05/2021 11:11:39 12/05/2021 11:47:35 Chlamydial infection 620627851 A74.9 History of depression 16 8968836 Z86.59 [id number] Jazmín Hicks MD [place] [address] [address] 04/24/2022 16:58:56 04/25/2022 13:53:02 Gynecologic examination 16829017 Z01.419 Z11.51 Surveillan ce of oral contraception 174803137 Z30.41 Human aomr lloma virus infection 352383311 B97.7 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 [id number] Jazmín Hicks MD [place] [address],[place] [address] 05/16/2022 11:39:25 05/18/2022 15:45:23 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 [id number] Kayla Talbert, [facility] [address],[place] [address] 09/14/2022 13:55:24 09/14/2022 15:18:56 Urinary symptoms 773435943 R39.9 [id number] Sherri Chapman [facility] [address],[place] [address] 11/07/2022 16:37:39 11/08/2022 17:52:22 Gynecologic examination 78379477 Z01.419 Z11.51 Take Calcium with Vitamin D [...] na Dexa Screen na Routine Labs PCP [id number] JARED Altaorre [place] [address],[place] [address] 04/17/2023 14:01:05 04/17/2023 14:37:31 Venereal disease screening 300547904 Z11.3 gc/ct/tric h testing sentblood STI panel orderedsaf e sexual practices encouraged and discussedw ill reach out to patient with results when available Time spent in visit is a total of 18 mins with at least 50% of visit consisting of counseling and review of plan of care. Sexually t ransmitted infectious disease 7854530 A64 [id number] Juan Jesus MD [place] [address],[place] [address] 05/07/2024 11:21:35 05/07/2024 11:55:46 screening 289898456 Z36.87 Z3A.10 [id number] Juan Jesus MD [place] [address],[place] [address] 05/07/2024 11:23:46 05/07/2024 12:49:40 Amenorrhea 50470347 N91.2 this patient is a 33-year-ol d [...] begin routine care at her next visit.l [id number] Juan Jesus MD [place] [address],[place] [address] 05/21/2024 09:30:28 05/21/2024 10:05:15 screening 935626148 Z36.82 Z3A.12 [id number] MD Tro Salazar [address],[place] [address] 05/21/2024 09:30:57 05/21/2024 10:52:02 Routine care 475092968 Z34.90 [id number] MD Tor Salazar [address],[place] [address] 06/18/2024 09:42:32 06/18/2024 10:26:23 Routine care 442920279 Z34.90 [id number] MD Tor Salazar [address],[place] [address] 07/16/2024 11:29:52 07/16/2024 12:39:00 screening for malformation 490160926 Z36.3 Z3A.20 [id number] Juan Jesus MD [place] [address],[place] [address] 07/16/2024 11:30:15 07/16/2024 14:25:11 Gastroesophageal reflux disease 027309961 K21.00 Routine an tenatal care 453122675 Z34.90 [id number] MD Tor Salazar [address],[place] [address] 08/13/2024 10:23:34 08/13/2024 11:25:34 screening 982991358 Z36.2 O44.40 Z3A.24 [id number] MD Tor Salazar [address],[place] [address] 08/13/2024 10:23:55 08/13/2024 12:23:03 [id number] MD Tor Salazar [address],[place] [address] 09/10/2024 09:17:02 09/10/2024 10:06:51 Placenta previa partialis 92650443 O44.23 Z3A.28 [id number] MD Tor Salazar [address],[place] [address] 09/10/2024 09:17:29 09/10/2024 10:38:43 Routine care 894336247 Z34.90 [id number] MD Tor Salazar [address],[place] [address] 09/24/2024 09:21:22 09/24/2024 10:00:57 Low-lying placenta 446038084 O44.40 Z3A.30 [id number] MD Tor Salazar [address],[place] [address] 09/24/2024 09:42:13 09/24/2024 11:20:01 Routine care 055552802 Z34.90 [id number] MD Tor Salazar [address],[place] [address] 10/08/2024 12:06:08 10/08/2024 12:58:15 Routine care 914572029 Z34.90 [id number] MD Tor Salazar [address],[place] [address] 10/22/2024 09:15:54 10/22/2024 10:06:48 Uterine size for dates discrepancy 537885182 O26.843 Z3A.34 [id number] MD Tor Salazar [address],[place] [address] 10/22/2024 09:16:45 10/22/2024 11:09:27 Routine care 588061586 Z34.90 [id number] MD Tor Salazar [address],[place] [address] 11/05/2024 11:31:53 11/05/2024 12:47:17 section following previous section 528201899 O34.219 [id number] MD Tor Salazar [address],[place] [address] 11/12/2024 09:33:07 11/12/2024 10:13:01 [id number] Juan Jesus MD [place] [address],[place] [address] 11/19/2024 11:08:50 11/19/2024 12:04:38 care status 971671997 Z34.80 9760512705 [id number] Juan Jesus MD [place] [address],[place] [address] 11/25/2024 09:07:28 11/27/2024 10:36:44 [id number] Juan Jesus MD [place] [address],[place] [address] 12/02/2024 13:53:57 12/02/2024 14:43:15 Postoperative state 38240480 Z98.890 [id number] This patient is a 34-year-ol d female who presents for postop follow-up. She is 1 week postop from a delivery. Her incision is clean dry and intact. She has no complaints . Her bleeding is minimal. She denies any nausea, vomiting, fever, chills. She denies any chest pain or shortness of breath. Her baby is doing well. Her mood is good. [id number] Juan Jesus MD [place] [address],[place] [address] 12/18/2024 14:42:15 12/18/2024 15:41:43 care status 702948007 Z39.2 [id number] This patient is a 34-year-ol d female presents for follow-up. Her baby is doing well. The baby is bottle feeding. She is doing well. She feels well and her mental health is good. She is not bleeding. She has not had intercours e. It they intend to get a vasectomy for the Partner. She will return in 3 months for well-woman exam. She has no complaints . She is doing well. [id number] CARIE TIJERINA NP [place] [address],[place] [address] 04/22/2025 09:36:52 04/22/2025 10:24:21 Well woman health examination 790346587 Z01.419 [id number] Annual gynecologi chandni exam performed. Patient will come back in a year unless there are new symptoms. Suggest Calcium with Vitamin D if not eating in diet. Patient advised to get annual flu shot. Recommend yearly physicals and perform monthly breast exams. Genetic testing is available for patients with family history of cancer. Engage in safe sexual practices, use condoms. Encouraged to have daily exercise. Avoid tobacco and illicit drugs, moderation of alcohol. If BMI greater than 25 dietary consult advised. If you have any questions please call or email. Pap smear- UTD (2022 - WNL), will repeat in 2025 per ASCCP guidelines laboratory evaluation - PCP STI testing - declined Patient declined BC; recommende d consistent condom use Gastroesop hageal reflux disease 150705886 K21.9 Reports history of severe acid reflux during . Patient states that symptoms were well controlled with pantoprazo le. Patient states that symptoms have returned and she gets right upper quadrant pain and burning in her throat/jessica st randomly. Denies current symptoms.R ecommended PCP/GI consult for further evaluation for chronic GERD. PCP list given. Will refill pantoprazo le ER 40 mg to take PO daily for up to 8 weeks until she sees new PCP. Risks/bene fits/AEs reviewed. ER precaution s given. Vaginal discharge 932081 006 N89.8 [id number] Will r/o BV/yeast/t rich with vaginitis panel. Discussed scant discharge noted on exam today; will await treatment until results are back.Discu ssed vulvar care guidelines in addition to laundry/sk in irritants to avoid.Braden mmended boric acid capsules - insert one capsule vaginally at H.S. after period, intercours e, and/or with symptoms. [id number] CARIE TIJERINA, JAYDEN [place] [address] [address] 05/20/2025 09:44:04 05/20/2025 10:04:40 Urinary system finding 939453555 R39.9 [id number] Patient presents with symptoms of UTI. Unable to perform urinalysis dipstick due to patient taking pyridium. Urine culture sent.Advis ed to drink clear fluids.Emp irical treatment was given.Taylor ent encouraged to follow up within 1 week if not improving. Health Concerns Section Related Observation LastModified by Organization Detai ls LastModified Time None Recorded Concern Status LastModified by Organization Details LastModified Time None Recorded Advance Directives Directive N: Payers Insurance Date Sequence Insurance Name Policy Number Policy [place] Covered Member ID [place] Member ID Guarantor Name 06/08/2024 1 *SELF PAY* Yamila Bhatia 05/19/2025 1 [facility] [id number] Osbaldo Sewell [id number] Nikki Cisnerostre 09/14/2022 1 [place] [id number] [facility] [id number] 1 Nikki Bhatia 05/07/2024 1 [place] [id number] [facility] [id number] 1 Nikki Bhatia Notes Date Note Type Note Provider Name and Address Organization Details Recorded Time 5 text/html This patient is a 34-year-old female who presents for postop follow-up. She is 1 week postop from a delivery. Her incision is clean dry and intact. She has no complaints. Her bleeding is minimal. She denies any nausea, vomiting, fever, chills. She denies any chest pain or shortness of breath. Her baby is doing well. Her mood is good. Juan Jesus MD [address], [place], [address], [facility] 12/02/2024 14:40:42 5 text/html VisitReported by Patient This patient is a 34-year-old female presents for follow-up. Her baby is doing well. The baby is bottle feeding. She is doing well. She feels well and her mental health is good. She is not bleeding. She has not had intercourse. It they intend to get a vasectomy for the Partner. She will return in 3 months for well-woman exam. She has no complaints. She is doing well. Juan Jesus MD [address], [place], [address], [facility] 12/18/2024 15:26:58 5 text/html Annual GYNReported by PatientGenitourinary symptomsFor vagina, patient reportsfoul-smellingandwh ite (after each period). For menstrual cycle, patient reportsnormal menses. For urinary symptoms, patient reportsno hematuriaandno incontinence. For vulva, patient reportsno genital lesion.Breast symptomsFor breast, patient reportsno breast pain,no breast lump, andno nipple discharge.ContraceptionFo r current contraception, patient reportscondoms.Endocrine symptomsFor sexual complaints, patient reportsno sexual complaints,no pain during intercourse, andnormal libido. For menopausal symptoms, patient reportsno menopausal symptomsandnormal vaginal lubrication.Psychological symptomsFor psychological symptoms, patient reportsno depression,no anxiety, andno pmdd.Preventative measuresFor preventive measures, patient reportsencourage self breast examination,encourage regular exercise,encourage no tobacco use, andencourage regular mammograms starting age 40. Patient presents for annual well woman exam.Patient reports vaginal discharge and odor for a few days after each periods; patient states that periods are heavier than before having her last child. Patient states that boric acid suppositories usually resolve symptoms as needed. Madonna banuelos, [facility] 04/22/2025 10:28:59 5 text/html 34 y/o patient presents with c/o urinary urgency and pelvic pressure x 2 days.Patient reports taking AZO with minimal relief of sx.Denies frequency or dysuria. CARIE TIJERINA NP [address], [place], [address], [facility] 05/20/2025 10:04:01 OBGyn Episode Ob Episode Information Episode Created Date Number of Fetuses Patient Bloodtype Patient rh Status Prepregnancy Weight lbs Domestic Partner Domestic Partner Phone Father Name Fuel Cell Engineer Status 10/14/19 22 1 CLOSED Fetus Data First Name Last Name Admitted to NICU Weight (g) Sex Living Outcome Pediatric Complications Fetus ID Race Codes Race Delivery Type F Full Term [id number] Primary Adan Calculation Initial Adan Date Initial [...] Domestic Partner Domestic Partner Phone Father Name Fuel Cell Engineer Status 05/21/20 24 1 O Positive Osbaldo CLOSED Fetus Data First Name Last Name Admitted to NICU Weight (g) Sex Living Outcome Pediatric Complications Fetus ID Race Codes Race Delivery Type false 3486.98 85 M true Full Term [id number] Repeat Problems Problem Notes Marginal previa - resolved Problem Name Start Date End Date Resolution Snomed Code Not e Blood glucose outside reference range [id number] failed 1hr g tt (fasted for 12hrs) per Dr Jesus start checking BS QID Deliveries by [id number] TO REPEAT MEGHANA DUDLEY Gastric reflux [id number] presc ribed Protonix 40 mg Adan Calculation [...] Gestation 0 [email or web address] 05/21/2024 11/30/19 25 0 Pre- Flowsheet Flowsheet Date 05/21/2024 Brian Score Blood Edema Fundus Height Fundus Units Glucose Ketones Leukocytes Nitrite Labor Signs Protein Cervic Dilation Cervic Effacement Cervic Station Type Weight in lbs Pre/Post Dialysis Refused Weight 161.363253791116 BP Diastolic BP Location Tested BP Systolic [...] Type Weight in lbs Pre/Post Dialysis Refused 160.761404084564 BP Diastolic BP Location Tested BP Systolic [...] Type Weight in lbs Pre/Post Dialysis Refused 166.297415962693 BP Diastolic BP Location Tested BP Systolic [...] Type Weight in lbs Pre/Post Dialysis Refused 170.398938030943 BP Diastolic BP Location Tested BP Systolic BP Type 84 L arm 130 sitting Fetus Heart Rate Present A 144 Fetus Movement A Yes Comments Placenta previa-patient give n detailed precautions on previa. Otherwise no complaints, no problems, routine care. Flowsheet Date 09/10/2024 Brian Score Blood Edema [...] Type Weight in lbs Pre/Post Dialysis Refused 174.80482151024 BP Diastolic BP Location Tested BP Systolic [...] Type Weight in lbs Pre/Post Dialysis Refused 175.251102119698 BP Diastolic BP Location Tested BP Systolic [...] Weight in lbs Pre/Post Dialysis Refused Weight 176.060338282180 BP Diastolic BP Location Tested BP Systolic [...] Type Weight in lbs Pre/Post Dialysis Refused 176.136910903437 BP Diastolic BP Location Tested BP Systolic [...] Weight in lbs Pre/Post Dialysis Refused Weight 178.754294467764 BP Diastolic BP Location Tested BP Systolic [...] Weight in lbs Pre/Post Dialysis Refused Weight 177.475863386615 BP Diastolic BP Location Tested BP Systolic [...] Weight in lbs Pre/Post Dialysis Refused Weight 179.171425472363 BP Diastolic BP Location Tested BP Systolic BP Type 81 L arm 121 sitting Fetus Heart Rate Present A 140 Present Fetus Movement A Yes Comments no complaints, no problems, routine care, no contractions, no vaginal bleeding, no loss of fluid, no cramping Flowsheet Date 11/25/2024 Brian Score Blood Edema Fundus Height Fundus Units Glucose Ketones Leukocytes Nitrite Labor Signs Protein Cervic Dilation Cervic Effacement Cervic Station Type Weight in lbs Pre/Post Dialysis Refused BP Diastolic BP Location Tested BP Systolic BP Type Fetus Heart Rate Present Fetus Movement Comments Flowsheet Date 12/02/2024 Brian Score Blood Edema Fundus Height Fundus Units Glucose Ketones Leukocytes Nitrite Labor Signs Protein Cervic Dilation Cervic Effacement Cervic Station Type Weight in lbs Pre/Post Dialysis Refused Weight 170.029942492017 BP Diastolic BP Location Tested BP Systolic BP Type 85 L arm 129 sitting Fetus Heart Rate Present Fetus Movement Comments Menstrual History Last Menstrual Date Menses Monthly On Bcp Conception Prior Menses Frequency Hcg Plus Date Menarche Onset Age 0702/03/2024 true false Delivery Information Delivery Date Delivery Type Labor Anesthesia Weeks Gestation Incision Type Labor Labor Length Hrs Delivered By Post Complications Tubal Sterilization Discharge Date Comments 5 Induce d 39.3 Low Transvers e false Juan Jesus MD false previous c section Discharge Information Feeding Method Contraceptive Method Maternal HG B and HCT Levels
== END 2025-05-26 10:48 | disposition home or self-care (01) ==
LOC: ANHLAB 10:48
PROVIDERS: Visit Provider Surgery
DX: K80.00 Calculus of gallbladder with acute cholecystitis without obstruction (principal)
CPT/HCPCS: 36415; 80053; 85027

== ENCOUNTER 2025-05-27 10:05 | Observation (INO) | payer OTHER, SELFPAY ==
[2025-05-27] VITALS (13 sets, daily range): BP systolic 120–138; BP diastolic 68–84; PULSE 87–117; RESP 14–23; TEMP 36.2–36.8; O2SAT 94–99; BMI 31.4
--- NOTE | ~2025-05-27 | XR_ITS ---
EXAMINATION: XR cholangiogram surg 1st inj DATE: 05/27/2025 16:10 INDICATION: Laparoscopic cholecystectomy TECHNIQUE: 216 fluoroscopic images of the right upper quadrant of the abdomen were obtained during procedure performed by Dr. Silva. Radiologist was not present for the imaging or procedure. The amount of fluoroscopy time used during this procedure was 0.1 minutes. Total DAP was 1.64 Gycm^2. COMPARISON: None. FINDINGS: There is a meniscus sign at the distal common bile duct on the initial images which could be due to a stone or bile sludge at the distal common bile duct. Contrast rapidly extends beyond the filling defect opacifying the duodenum. There is a subtle relative lucency at the ampulla on the final images however this appears to represent a superimposed mucosal folds of the duodenum and there is no definitive filling defect evident in the common bile duct or ampulla on the final images. There is reflux of contrast into the normal- appearing central intrahepatic biliary tree. IMPRESSION: 1. Transient filling defect at the distalmost common bile duct which could represent a gallstone or sludge and is not evident on the final images and if initially present, likely passed into the duodenum during the course of the injection. Reviewed, dictated and finalized at location A. IMPRESSION: 1. Transient filling defect at the distalmost common bile duct which could repr esent a gallstone or sludge and is not evident on the final images and if initi ally present, likely passed into the duodenum during the course of the injectio n.
--- NOTE | 2025-05-27 10:15 | P.HP_ITS ---
H&P: HPI History of Present Illness Date/Time: 05/27/25 10:15 Chief Complaint: RUQ abdominal pain, Elevated liver enzymes Narrative: This is a 34 y/o female who was seen by Dr. Silva in our office yesterday for a follow up after OA[facility] visit on 05/13/25. Patient presented to the ER with RUQ abdominal pain. She had an abdominal US done which showed cholelithiasis and hepatic steatosis and/or hepatocellular disease. No evidence of acute cholecystitis. Patient reports she has been experiencing attacks for approximately 1.5 years that she thought was acid reflux. She states she has been maintaining a bland/liquid diet and she is still having severe abdominal pain that radiates into her back. She reports extreme nausea, episodes of emesis, diarrhea and constipation. Her symptoms typically occur after eating. She is getting next week and wanted to opt to avoid surgery yesterday. Labs were ordered as an outpatient and showed a WBC count of 5.1, total bilirubin 1.0, AST 1176, ALT 273, and alk phos 273. The patient was called this morning with the lab results and we are now directly admitting her for transaminitis and further workup. Review of Systems Review of Systems: All systems reviewed & are unremarkable except as noted in HPI and below PMFSH Past Medical History Medical History GDM (gestational diabetes mellitus) Family History Family History Grandparent Cerebrovascular accident Grandparent Diabetes mellitus Other Congenital heart failure Social History Social History Smoking status: Never smoker Substance use: never Spiritual care concerns: No Meds Home Medications and Allergies Home Medications ?Medication ?Instructions ?Recorded ?Confirmed ?Type pantoprazole 40 mg tablet,delayed 40 mg PO QAM acid re flux 11/05/24 05/26/25 History release hydrocodone 5 mg-acetaminophen 325 1 tablet PO Q3H PRN Breakthrough 11/27/24 05/26/25 Rx mg tablet Pain Rated 4-6 10 days #25 t abs hydrocodone 5 mg-acetaminophen 325 1 tablet PO Q12H PA N pain #14 tabs 05/13/25 05/26/25 Rx mg tablet ondansetron 4 mg disintegrating 4 mg PO Q8H PRN nausea and 05/13/25 05/26/25 Rx tablet vomiting #14 tabs amoxicillin 875 mg-potassium 1 tablet PO BID #20 tabs 05/26/25 05/26/25 Rx clavulanate 125 mg tablet Allergies Allergy/AdvReac Type Severity Reaction Status Date / Time oseltamivir Allergy Unknown RASH Verified 05/26/25 09:52 Exam Const: General: comfortable and no acute distress Nutritional Appearance: average body habitus Orientation/consciousness: patient oriented x3 HENMT: Head: normocephalic and atraumatic Ears: hearing grossly normal bilaterally Mouth: Yes moist mucous membranes Eyes: General: appearance normal, both eyes and all related structures Pupils: Equal, round and reactive pupils present Neck: Neck: normal visual inspection and full ROM Resp: Effort & Inspection: no respiratory distress Auscultation: clear to auscultation bilaterally Cardio: Rate: regular rate Rhythm: regular rhythm Peripheral pulses: Peripheral pulses 2+ throughout GI: Inspection: non-distended, no scars and other (large tattoos across upper and right abdomen) GI Palp: Yes Soft to palpation, Yes Tenderness to palpation present (GI) (RUQ, + Kulkarni's sign), No Guarding due to palpation present (GI), Yes No hepatosplenomegaly present, No Hernia present and No Rebound tenderness present Percussion: Yes normal to percussion Auscultation: normal bowel sounds Skin: General skin exam: normal color Neuro: General: moves all extremities and no focal motor deficits Speech: normal speech Motor exam (neuro): 5/5 motor strength present throughout Extrem: General: normal to inspection and no edema Psych: Mental Status: mental status grossly normal Attitude: cooperative Insight: Good insight present (Psych) Judgement: Good judgement present (Psych) Assessment and Plan Assessment and plan (1) Acute calculous cholecystitis: Code(s): K80.00 - Calculus of gallbladder with acute cholecystitis without obstruction Status: Acute Assessment and Plan: * Patient with progressive RUQ pain and evaluated as an outpatient yesterday by Dr. Silva. Outpatient labs showed elevated liver enzymes and she is being directly admitted for further workup. Will start IV Zosyn and make her NPO. Continue IV fluids and analgesics as needed. Will get an MRCP to further evaluate the elevated liver enzymes. Will eventually need a laparoscopic cholecystectomy with timing depending on MRCP results. (2) Elevated liver enzymes: Code(s): R74.8 - Abnormal levels of other serum enzymes Status: Acute Assessment and Plan: * New finding on outpatient labs yesterday and were compared to labs from 2 weeks prior when LFTs were normal. Her total bilirubin is normal, but will order an MRCP to further evaluate. GI has also been consulted. Could just be related to cholecystitis? See plan above. Plan I have discussed the patient's case and plan of care with Dr. Silva.
[2025-05-27 10:33] LABS: Hematocrit 38.7 % (37.0-47.0); Hemoglobin 12.3 g/dL (12.0-15.0); Immature Granulocyte Percent A 0.7 % (0-0.5); Lymphocytes Absolute Auto 2.18 K/mm3 (0.9-3.2); Mean Corpuscular HGB Conc 31.8 g/dl (32-36); Mean Corpuscular Hemoglobin 26.9 pg (26-34); Mean Corpuscular Volume 84.5 fl (80-100); Nucleated Red Blood Cells Absolute Auto 0.000 K/mm3 (0.0-0.012); Nucleated Red Blood Cells Perc 0.0 % (0.0-0.2); Platelet Count Result 300 k/mm3 (150-375); Red Blood Count 4.58 M/mm3 (4.2-5.4); White Blood Count 7.3 K/mm3 (4.5-10.0)
[2025-05-27 10:52] LABS: Alanine Aminotransferase 596 U/L (6-35); Albumin Level 4.2 g/dL (3.5-5.1); Alkaline Phosphatase 240 U/L (38-126); Anion Gap 8 mmol/L (4-12); Aspartate Amino Transferase 259 U/L (14-36); Bilirubin,Total 0.4 mg/dL (0.2-1.3); Blood Urea Nitrogen 12 mg/dL (7-17); Calcium 9.1 mg/dL (8.4-10.2); Carbon Dioxide 27 mmol/L (22-30); Chloride 103 mmol/L (98-107); Estimated Glomerular Filt Rate > 60; Glucose 101 mg/dL (65-110); INR 0.9; Lipase 71 U/L (23-300); Potassium 3.7 mmol/L (3.4-5.0); Prothrombin Time 12.7 Seconds (11.1-14.7); Sodium 138 mmol/L (137-145); Total Protein 7.4 g/dL (6.3-8.2)
[2025-05-27 10:53] LABS: Partial Thromboplastin Time 26.6 Seconds (22.3-36.8)
--- OUTSIDE RECORDS SUMMARY | 2025-05-27 10:58 | XMS_ITS | Clinical Summary ---
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 Gender Identity Not on file Sexual Orientation Not on file Last Filed Vital Signs Vital Sign Reading Time Taken Comments Blood Pressure 128/80 08/20/2022 10:21 AM MARINE STEAMFITTER Pulse 83 08/20/2022 10:21 AM MARINE STEAMFITTER Temperature 36.6 C (97.9 F) 08/20/2022 10:21 AM MARINE STEAMFITTER Respiratory Rate 16 08/20/2022 10:21 AM MARINE STEAMFITTER Oxygen Saturation 98% 08/20/2022 10:21 AM MARINE STEAMFITTER Inhaled Oxygen Concentration - - Weight 65.8 kg (145 lb) 08/20/2022 10:21 AM MARINE STEAMFITTER Height 152.4 cm (5') 08/20/2022 10:21 AM MARINE STEAMFITTER Body Mass Index 28.32 08/20/2022 10:21 AM MARINE STEAMFITTER Plan of Treatment Health Maintenance Due Date [...] to complete this topic Insurance Care Teams Work Over Rig Operator Relationship Specialty Start Date End Date Darrin Rowell MD [address] [place] [address] PCP - General FAMILY PRACTICE 08/20/22
[2025-05-27] MEDS: PIPERACILLIN/TAZOBACTAM SOD 3.375 GM in SODIUM CHLORIDE 0.9% IV 50 ML 100 ML IVPB ×2 (11:02→15:47)
[2025-05-27] MEDS: LACTATED RINGERS 1,000 ML 100 ML IV CONT (11:35)
--- OUTSIDE RECORDS SUMMARY | 2025-05-27 11:47 | XMS_ITS | Clinical Summary ---
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 Gender Identity Not on file Sexual Orientation Not on file Last Filed Vital Signs Vital Sign Reading Time Taken Comments Blood Pressure 128/80 08/20/2022 10:21 AM TRAFFIC POLICE OFFICER Pulse 83 08/20/2022 10:21 AM TRAFFIC POLICE OFFICER Temperature 36.6 C (97.9 F) 08/20/2022 10:21 AM TRAFFIC POLICE OFFICER Respiratory Rate 16 08/20/2022 10:21 AM TRAFFIC POLICE OFFICER Oxygen Saturation 98% 08/20/2022 10:21 AM TRAFFIC POLICE OFFICER Inhaled Oxygen Concentration - - Weight 65.8 kg (145 lb) 08/20/2022 10:21 AM TRAFFIC POLICE OFFICER Height 152.4 cm (5') 08/20/2022 10:21 AM TRAFFIC POLICE OFFICER Body Mass Index 28.32 08/20/2022 10:21 AM TRAFFIC POLICE OFFICER Plan of Treatment Health Maintenance Due Date [...] to complete this topic Insurance Care Teams Planting Material Remover Relationship Specialty Start Date End Date Darrin Rowell MD [address] [place] [address] PCP - General FAMILY PRACTICE 08/20/22
--- OUTSIDE RECORDS SUMMARY | 2025-05-27 11:48 | XMS_ITS | Data Portability ---
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 Lab pap, IG + HPV, cervical - please use Z11.51 in addition to code above for HPV testing. [address] [facility], [address], [address] [address], [place], [address], 03:07:11 urinalysi s, dipstick 2020 elisabeth In-Office Order, Internal Use Only DO Not Attach Compendium DO Not Attach Compendium, Do Not Delete/merge, [id number] 16:49:28 bacterial vaginosis panel, vaginal [address] [facility] (Centralized Electronic Ordering - All Locations), Patient Can Go To The Location Of Their Choice, 16:11:09 culture, vaginal/r ectal, streptoco ccus group B [address] [facility] (Centralized Electronic Ordering - All Locations), Patient Can Go To The Location Of Their Choice, 16:11:10 CT + NG + TV, DNA, urine/swa b [address] [facility], [address] [facility], [address], [place], [address], 9 20:07:40 urinalysi s, dipstick 2018 0[facility] Order, Internal Use Only DO Not Attach Compendium DO Not Attach Compendium, Do Not Delete/merge, [id number] 9 17:28:09 test, urine 2018 019 [email or web address] In-Office Order, Internal Use Only DO Not Attach Compendium DO Not Attach Compendium, Do Not Delete/merge, [id number] 9 17:28:09 pap, IG + HPV, cervical 2018 [facility], [address] [facility], [address], [place], [address], 0 14:40:47 pap, IG + HPV, cervical - please use Z11.51 in addition to code above for HPV testing. 2018 019 [facility], [address], [address], [address], 9 11:39:12 test, urine [address] In-Office Order, Internal Use Only DO Not Attach Compendium DO Not Attach Compendium, Do Not Delete/merge, [id number] 9 10:44:39 bacterial vaginosis panel, vaginal [address] [facility] (Centralized Electronic Ordering - All Locations), Patient Can Go To The Location Of Their Choice, [id number] 9 11:38:42 culture, vaginal/r ectal, streptoco ccus group B [address] [facility] (Centralized Electronic Ordering - All Locations), Patient Can Go To The Location Of Their Choice, [id number] 9 11:38:43 pap, IG + HPV, cervical [address] [facility], [address] [facility], [address], [place], [address], 8 14:13:21 urinalysi s, dipstick 2017 018 elisabeth In-Office Order, Internal Use Only DO Not Attach Compendium DO Not Attach Compendium, Do Not Delete/merge, [id number] 8 13:34:04 test, urine 2017 018 elisabeth In-Office Order, Internal Use Only DO Not Attach Compendium DO Not Attach Compendium, Do Not Delete/merge, [id number] 8 13:34:04 bacterial vaginosis + vaginitis panel, vaginal - Z11.3, Z20.[address] [facility], [facility] [facility], [address], [place], [address], 8 08:29:38 HSV (1+2) DNA, qual, PCR, unspecifi ed specimen - Z11.3, Z20.2 2017 [facility], [address] [place] [address], [address], [place], [address], 8 08:29:39 culture, vaginal/r ectal, streptoco ccus group B - Z11.3, Z20.[address] [facility], [address] [place] [address], [address], [place], [address], 8 08:29:39 Referral None recorded. Procedures None recorded. Surgeries None recorded. Imaging None recorded. Medication Orders sertralin e 100 mg tablet [address] [facility] [address] In [facility], [address] [place], [address], 11:38:30 buspirone 10 mg tablet [address] [facility] [address] In [facility], [facility] [place], [address], 11:38:29 multivita min tablet [address] [facility] [address] In [facility], [facility] [place], [address], 03:32:24 Calcium with Vitamin D 600 mg-10 mcg (400 unit) tablet 2020 021 [facility] [address] In [facility], [address] [place] [address], [address], 16:49:28 multivita min tablet 2018 019 [facility] [address] In [facility], [address] [place] [address], [address], 9 17:28:13 Calcium with Vitamin D 600 mg-10 mcg (400 unit) tablet 2018 019 [facility] [address] In [facility], [address] [place] [address], [address], 9 17:28:14 RepHresh vaginal gel 2018 0[address] [facility] [address] In [facility], [address] [place] [address], [address], 1 10:52:19 RepHresh Pro-B 2.5 billion cell capsule 2018 019 [facility] [address] In [facility], [address] [place] [address], [address], 1 10:52:16 multivita min tablet 2018 0[address] [facility] [facility] [address], [address], 9 16:13:52 Calcium with Vitamin D 600 mg-10 mcg (400 unit) tablet 2018 0[address] [facility] [address], [address], 9 16:13:51 calcium 600 mg (as carbonate )-vitamin D3 20 mcg (800 unit) tablet 2017 018 [facility] [address], [address], 1 10:52:12 multivita min tablet 2017 018 [facility] [address], [address], 8 12:00:46 Patient TargetsNo targets recorded. Patient Instructions Encounter Date Encounter Id Patient Instructions Last Modified By Organization Details Last Modified Time 01/29/2018 [id number] Patient advised to relax pubococcygeus muscle during intercourse. elisabeth Not available 01/29/2018 12:40:49 05/25/2021 [id number] anxiety disorder : care instructions elisabeth Not [...] DO Not Attach Compendium, Do Not Delete/merge, [id number] 05/25/2021 11:22:25 05/25/2005/25/2021 urina lysis , dipst ick Nitrite negati ve Not Available In-Office Order Internal Use Only DO Not Attach Compendium DO Not Attach Compendium, Do Not Delete/merge, 05/25/2021 11:22:25 05/25/2005/25/2021 urina lysis , dipst ick Urobilinogen .2 Not Available In-Of fice Order Internal Use Only DO Not Attach Compendium DO Not Attach Compendium, Do Not Delete/merge, 05/25/2021 11:22:25 05/25/2005/25/2021 urina lysis , dipst ick Protein Negati ve Not Available In-Office Order Internal Use Only DO Not Attach Compendium DO Not Attach Compendium, Do Not Delete/merge, 05/25/2021 11:22:25 05/25/2005/25/2021 urina lysis , dipst ick pH 8.0 Not Available In-Office Order Internal Use Only DO Not Attach Compendium DO Not Attach Compendium, Do Not Delete/merge, 05/25/2021 11:22:25 05/25/2005/25/2021 urina lysis , dipst ick Blood Non-He molyze d: Trace Not Available In-Office Order Internal Use Only DO Not Attach Compendium DO Not Attach Compendium, Do Not Delete/merge, 05/25/2021 11:22:25 05/25/2005/25/2021 urina lysis , dipst ick Specific [place] 1.020 Not Available In-Off ice Order Internal Use Only DO Not Attach Compendium DO Not Attach Compendium, Do Not Delete/merge, 05/25/2021 11:22:25 05/25/2005/25/2021 urina lysis , dipst ick Ketone Negati ve Not Available In-Office Order Internal Use Only DO Not Attach Compendium DO Not Attach Compendium, Do Not Delete/merge, 05/25/2021 11:22:25 05/25/2005/25/2021 urina lysis , dipst ick Bilirubin Negati ve Not Available In-Office Order Internal Use Only DO Not Attach Compendium DO Not Attach Compendium, Do Not Delete/merge, [id number] 05/25/2021 11:22:25 05/25/20 21 05/25/2021 urina lysis , dipst ick Glucose Negati ve Not Available In-Office Order Internal Use Only DO Not Attach Compendium DO Not Attach Compendium, Do Not Delete/merge, [id number] 05/25/2021 11:22:25 07/06/20 19 07/06/2019 pregn carmen test, urine HCG negati ve Not Available In-Office Order Internal Use Only DO Not Attach Compendium DO Not Attach Compendium, Do Not Delete/merge, [id number] 07/06/2019 16:44:45 07/06/20 19 07/06/2019 urina lysis , dipst ick Leukocytes Negati ve Not Available In-Office Order Internal Use Only DO Not Attach Compendium DO Not Attach Compendium, Do Not Delete/merge, [id number] 07/06/2019 16:37:03 07/06/20 19 07/06/2019 urina lysis , dipst ick Nitrite negati ve Not Available In-Office Order Internal Use Only DO Not Attach Compendium DO Not Attach Compendium, Do Not Delete/merge, [id number] 07/06/2019 16:37:03 07/06/20 19 07/06/2019 urina lysis , dipst ick Urobilinogen .2 Not Available In-Of fice Order Internal Use Only DO Not Attach Compendium DO Not Attach Compendium, Do Not Delete/merge, [id number] 07/06/2019 16:37:03 07/06/20 19 07/06/2019 urina lysis , dipst ick Protein Negati ve Not Available In-Office Order Internal Use Only DO Not Attach Compendium DO Not Attach Compendium, Do Not Delete/merge, [id number] 07/06/2019 16:37:03 07/06/20 19 07/06/2019 urina lysis , dipst ick pH 6.0 Not Available In-Office Order Internal Use Only DO Not Attach Compendium DO Not Attach Compendium, Do Not Delete/merge, [id number] 07/06/2019 16:37:03 07/06/20 19 07/06/2019 urina lysis , dipst ick Blood Modera te Not Available In-Office Order Internal Use Only DO Not Attach Compendium DO Not Attach Compendium, Do Not Delete/merge, [id number] 07/06/2019 16:37:03 07/06/20 19 07/06/2019 urina lysis , dipst ick Specific [place] 1.005 Not Available In-Off ice Order Internal Use Only DO Not Attach Compendium DO Not Attach Compendium, Do Not Delete/merge, [id number] 07/06/2019 16:37:03 07/06/20 19 07/06/2019 urina lysis , dipst ick Ketone Negati ve Not Available In-Office Order Internal Use Only DO Not Attach Compendium DO Not Attach Compendium, Do Not Delete/merge, [id number] 07/06/2019 16:37:03 07/06/20 19 07/06/2019 urina lysis , dipst ick Bilirubin Negati ve Not Available In-Office Order Internal Use Only DO Not Attach Compendium DO Not Attach Compendium, Do Not Delete/merge, [id number] 07/06/2019 16:37:03 07/06/20 19 07/06/2019 urina lysis , dipst ick Glucose Negati ve Not Available In-Office Order Internal Use Only DO Not Attach Compendium DO Not Attach Compendium, Do Not Delete/merge, [id number] 07/06/2019 16:37:03 01/30/20 18 01/29/2018 urina lysis , dipst ick Leukocytes Negati ve Not Available In-Office Order Internal Use Only DO Not Attach Compendium DO Not Attach Compendium, Do Not Delete/merge, [id number] 01/29/2018 13:01:43 01/30/20 18 01/29/2018 urina lysis , dipst ick Nitrite negati ve Not Available In-Office Order Internal Use Only DO Not Attach Compendium DO Not Attach Compendium, Do Not Delete/merge, [id number] 01/29/2018 13:01:43 01/30/20 18 01/29/2018 urina lysis , dipst ick Urobilinogen .2 Not Available In-Of fice Order Internal Use Only DO Not Attach Compendium DO Not Attach Compendium, Do Not Delete/merge, [id number] 01/29/2018 13:01:43 01/30/20 18 01/29/2018 urina lysis , dipst ick Protein Negati ve Not Available In-Office Order Internal Use Only DO Not Attach Compendium DO Not Attach Compendium, Do Not Delete/merge, [facility] 01/29/2018 13:01:43 01/30/20 18 01/29/2018 urina lysis , dipst ick pH 6.0 Not Available In-Office Order Internal Use Only DO Not Attach Compendium DO Not Attach Compendium, Do Not Delete/merge, [facility] 01/29/2018 13:01:43 01/30/20 18 01/29/2018 urina lysis , dipst ick Blood Hemoly zed: Trace Not Available In-Office Order Internal Use Only DO Not Attach Compendium DO Not Attach Compendium, Do Not Delete/merge, [facility] 01/29/2018 13:01:43 01/30/20 18 01/29/2018 urina lysis , dipst ick Specific [place] 1.020 Not Available In-Off ice Order Internal Use Only DO Not Attach Compendium DO Not Attach Compendium, Do Not Delete/merge, [facility] 01/29/2018 13:01:43 01/30/20 18 01/29/2018 urina lysis , dipst ick Ketone Negati ve Not Available In-Office Order Internal Use Only DO Not Attach Compendium DO Not Attach Compendium, Do Not Delete/merge, [facility] 01/29/2018 13:01:43 01/30/20 18 01/29/2018 urina lysis , dipst ick Bilirubin Negati ve Not Available In-Office Order Internal Use Only DO Not Attach Compendium DO Not Attach Compendium, Do Not Delete/merge, [facility] 01/29/2018 13:01:43 01/30/20 18 01/29/2018 urina lysis , dipst ick Glucose Negati ve Not Available In-Office Order Internal Use Only DO Not Attach Compendium DO Not Attach Compendium, Do Not Delete/merge, [facility] 01/29/2018 13:01:43 01/30/20 18 01/31/2018 pap, IG + HPV, cervi chandni diagnosis: COMMEN T NEGAT GREGORIO FOR INTRA EPITH ELIAL LESIO N AND CRUZ AWAD . Not Available [facility] ([facility]) [address] [place], [address], 01/31/2018 14:13:21 01/30/20 18 01/31/2018 pap, IG + HPV, cervi chandni specimen adequacy: RUY Rock Satis facto ry for evalu ation . Endoc ervic al and/o r squam ous metap lasti c cells (endo cervi chandni compo nent) are prese nt. Not Available [facility] ([facility]) [address] [place], [address], 01/31/2018 14:13:21 01/30/20 18 01/31/2018 pap, IG + HPV, cervi chandni clinician provided ICD10: RUY Rock Z20.2 Z01.4 19 Not Available [facility] ([facility]) [address] [place], [address], 01/31/2018 14:13:21 01/30/20 18 01/31/2018 pap, IG + HPV, cervi chandni performed by: RUY Jamison , Reynaldo rock (ASCP ) Not Available [facility] ([facility]) [address] [place], [address], 01/31/2018 14:13:21 01/30/20 18 01/31/2018 pap, IG + HPV, cervi chandni . . Not Available [facility] ([facility]) [address] [place], [address], 01/31/2018 14:13:21 01/30/20 18 01/31/2018 pap, IG [...] occur . Not Available [facility] ([facility]) [address] [facility], [place], [address], 01/31/2018 14:13:21 01/30/20 18 01/31/2018 pap, IG + HPV, cervi chandni test methodology: COMMEN T This liqui d based ThinP rep(R ) pap test was kirt roca with the use of an image guide quinton stapleton Not Available [facility] ([facility]) [address] [facility], [place], [address], 01/31/2018 14:13:21 01/30/20 18 01/31/2018 pap, IG + HPV, cervi chandni HPV aptima NEGATI VE negati ve This test detec ts fourt een high- risk HPV types (16/1 8/31/ 33/35 /39/4 5/ 51/52 /56/5 8/59/ 66/68 ) witho ut diffe renti ation . Not Available [facility] ([facility]) [address] [facility], [place], [address], 01/31/2018 14:13:21 01/30/20 18 02/07/2018 bacte rial vagin osis + vagin itis panel , vagin al atopobium vaginae LOW - 0 score Not Available [facility] ([facility]) [address] [facility], [place], [address], 02/07/2018 08:29:38 01/30/20 18 02/07/2018 bacte rial vagin osis + vagin itis panel , vagin al bvab 2 LOW - 0 score Not Available [facility] ([facility]) [address] [place], [address], 02/07/2018 08:29:38 01/30/20 18 02/07/2018 bacte rial [...] e itzel cteri stics deter mined by [employer]. It has not been clear ed or appro claus by the Food and Drug Admin istra tion. The FDA has deter mined that such clear ance or appro francisca is not neces heather. Not Available [facility] ([facility]) [address] [place], [address], 02/07/2018 08:29:38 01/30/20 18 02/07/2018 bacte rial vagin osis + vagin itis panel , vagin al justin albicans, YISSEL NEGATI VE negati ve Not Available [facility] ([facility]) [address] [place], [address], 02/07/2018 08:29:38 01/30/20 18 02/07/2018 bacte rial vagin osis + vagin itis panel , vagin al justin glabrata, YISSEL NEGATI VE negati ve This test was devel oped and its perfo rmanc e itzel cteri stics deter mined by [employer]. It has not been clear ed or appro claus by the Food and Drug Admin istra tion. The FDA has deter mined that such clear ance or appro francisca is not neces heather. Not Available [facility] ([facility]) [address] [place], [address], 02/07/2018 08:29:38 01/30/20 18 02/07/2018 bacte rial vagin osis + vagin itis panel , vagin al trich vag by YISSEL NEGATI VE negati ve Not Available [facility] ([facility]) [address] [place], [address], 02/07/2018 08:29:38 01/30/20 18 02/07/2018 bacte rial vagin osis + vagin itis panel , vagin al chlamydia trachomatis, YISSEL NEGATI VE negati ve Not Available [facility] ([facility]) [address] [place], [address], 02/07/2018 08:29:38 01/30/20 18 02/07/2018 bacte rial vagin osis + vagin itis panel , vagin al neisseria gonorrhoeae, YISSEL NEGATI VE negati ve Not Available [facility] ([facility]) [address] [place], [address], 02/07/2018 08:29:38 01/30/20 18 01/31/2018 HSV (1+2) DNA, qual, PCR, unspe cifie d speci men hsv 1 YISSEL NEGATI VE negati ve Not Available [facility] ([facility]) [address] [place], [address], 02/07/2018 08:29:39 01/30/20 18 01/31/2018 HSV (1+2) DNA, qual, PCR, unspe cifie d speci men hsv 2 YISSEL NEGATI VE negati ve Not Available [facility] ([facility]) [address] [place], [address], 02/07/2018 08:29:39 01/30/20 18 01/31/2018 cultu re, [...] noted . Not Available [facility] ([facility]) [address] [facility], [place], [address], 02/07/2018 08:29:39 01/30/20 18 01/29/2018 pregn carmen test, urine HCG negati ve Not Available In-Office Order Internal Use Only DO Not Attach Compendium DO Not Attach Compendium, Do Not Delete/merge, [id number] 01/29/2018 13:01:45 04/28/20 19 04/30/2019 pap, IG + HPV, cervi chandni diagnosis: COMMEN T NEGAT GREGORIO FOR INTRA EPITH ELIAL LESIO N OR CRUZ AWAD . Not Available [facility] ([facility]) [address] [facility], [place], [address], 04/30/2019 11:39:12 04/28/2004/30/2019 pap, IG + HPV, cervi chandni specimen adequacy: COMMEN T Satis facto ry for evalu ation . Endoc ervic al and/o r squam ous metap lasti c cells (endo cervi chandni compo nent) are prese nt. Not Available [facility] ([facility]) [address] [facility], [place], [address], 04/30/2019 11:39:12 04/28/20 19 04/30/2019 pap, IG + HPV, cervi chandni clinician provided ICD10: RUY Rock Z01.4 19 Z11.5 1 Z20.2 Not Available [facility] ([facility]) [address] [place], [address], 04/30/2019 11:39:12 04/28/20 19 04/30/2019 pap, IG + HPV, cervi chandni performed by: RUY rock, Cytot gaudencio mcintosh t (ASCP ) Not Available [facility] ([facility]) [address] [place], [address], 04/30/2019 11:39:12 04/28/20 19 04/30/2019 pap, IG + HPV, cervi chandni . . Not Available [facility] ([facility]) [address] [place], [address], 04/30/2019 11:39:12 04/28/2004/30/2019 pap, IG + HPV, [...] occur . Not Available [facility] ([facility]) [address] [place], [address], 04/30/2019 11:39:12 04/28/2004/30/2019 pap, IG + HPV, cervi chandni test methodology: RUY Rock This liqui d based ThinP rep(R ) pap test was scree chanelle with the use of an image guide quinton cheatham. Not Available [facility] ([facility]) [address] [place], [address], 04/30/2019 11:39:12 04/28/20 19 04/30/2019 pap, IG + HPV, cervi chandni HPV aptima POSITI VE negati ve abnormal This test detec ts fourt een high- risk HPV types (16/1 8/31/ 33/35 /39/4 5/ 51/52 /56/5 8/59/ 66/68 ) witho cedric peguero . Not Available [facility] ([facility]) [address] [place], [address], 04/30/2019 11:39:12 04/28/20 19 04/30/2019 bacte rial vagin osis panel , vagin al chlamydia trachomatis, YISSEL POSITI VE negati ve abnormal Not Available [facility] ([facility]) [address] [place], [address], 05/01/2019 11:38:42 04/28/20 19 04/30/2019 bacte rial vagin osis panel , vagin al neisseria gonorrhoeae, YISSEL NEGATI VE negati ve Not Available [facility] ([facility]) [address] [place], [address], 05/01/2019 11:38:42 04/28/20 19 05/01/2019 bacte rial vagin osis panel , vagin al atopobium vaginae LOW - 0 score Not Available [facility] ([facility]) [address] [place], [address], 05/01/2019 11:38:42 04/28/2005/01/2019 bacte rial vagin osis panel , vagin al bvab 2 LOW - 0 score Not Available [facility] ([facility]) [address] [place], [address], 05/01/2019 11:38:42 04/28/20 19 05/01/2019 bacte rial [...] e itzel cteri stics deter mined by [employer]. It has not been clear ed or appro claus by the Food and Drug Admin istra tion. The FDA has deter mined that such clear ance or appro francisca is not neces heather. Not Available [facility] ([facility]) [address] [place], [address], 05/01/2019 11:38:42 04/28/2005/01/2019 bacte rial vagin osis panel , vagin al justin albicans, YISSEL NEGATI VE negati ve Not Available [facility] ([facility]) [address] [place], [address], 05/01/2019 11:38:42 04/28/2005/01/2019 bacte rial vagin osis panel , vagin al justin glabrata, YISSEL NEGATI VE negati ve This test was devel oped and its perfo rmanc e itzel cteri stics deter mined by [employer]. It has not been clear ed or appro claus by the Food and Drug Admin istra tion. The FDA has deter mined that such clear ance or appro francisca is not neces heather. Not Available [facility] ([facility]) [address] [place], [address], 05/01/2019 11:38:42 04/28/2005/01/2019 bacte rial vagin osis panel , vagin al trich vag by YISSEL NEGATI VE negati ve Not Available [facility] ([facility]) [address] [facility], [place], [address], 05/01/2019 11:38:42 04/28/2005/01/2019 bacte rial vagin osis panel , vagin al hsv 1 YISSEL NEGATI VE negati ve Not Available [facility] ([facility]) [address] [place], [address], 05/01/2019 11:38:42 04/28/2005/01/2019 bacte rial vagin osis panel , vagin al hsv 2 YISSEL NEGATI VE negati ve Not Available [facility] ([facility]) [address] [facility], [place], [address], 05/01/2019 11:38:42 04/28/2004/30/2019 cultu re, vagin al/re [...] warra nted if resis tance to clind amygisele n is noted . Not Available [facility] ([facility]) [address] [facility], [place], [address], 05/01/2019 11:38:43 05/01/20 19 05/01/2019 pregn carmen test, urine HCG negati ve Not Available In-Office Order Internal Use Only DO Not Attach Compendium DO Not Attach Compendium, Do Not Delete/merge, [id number] 04/28/2019 16:21:31 07/07/20 19 07/08/2019 CT + NG + TV, DNA, urine /swab chlamydia by YISSEL NEGATI VE negati ve Not Available [facility] ([facility]) [address] [facility], [place], [address], 07/08/2019 20:07:40 07/07/20 19 07/08/2019 CT + NG + TV, DNA, urine /swab gonococcus by YISSEL NEGATI VE negati ve Not Available [facility] ([facility]) [address] [place], [address], 07/08/2019 20:07:40 07/07/20 19 07/08/2019 CT + NG + TV, DNA, urine /swab trich vag by YISSEL NEGATI VE negati ve Not Available [facility] ([facility]) [address] [place], [address], 07/08/2019 20:07:40 05/25/20 21 05/29/2021 IGP, APTIM A HPV diagnosis: Commen t NEGAT GREGORIO FOR INTRA EPITH ELIAL LESIO N OR CRUZ AWAD . Not Available [facility] ([facility]) [address] [place], [address], 05/30/2021 03:07:10 05/25/20 21 05/29/2021 IGP, APTIM A HPV specimen adequacy: Commen t Satis facto ry for evalu ation . No endoc ervic al compo nent is ident ified . Not Available [facility] ([facility]) [address] [place], [address], 05/30/2021 03:07:10 05/25/2005/29/2021 IGP, APTIM A HPV clinician provided ICD10: Ruy rock Z01.4 19 Z11.5 1 Not Available [facility] ([facility]) [address] [place], [address], 05/30/2021 03:07:10 05/25/2005/29/2021 IGP, APTIM A HPV performed by: Ruy palmer, Reynaldo rock (ASCP ) Not Available [facility] ([facility]) [address] [place], [address], 05/30/2021 03:07:10 05/25/2005/29/2021 IGP, APTIM A HPV . . Not Available [facility] ([facility]) [address] [place], [address], 05/30/2021 03:07:10 05/25/2005/29/2021 IGP, APTIM A HPV [...] occur . Not Available [facility] ([facility]) [address] [place], [address], 05/30/2021 03:07:10 05/25/2005/29/2021 IGP, APTIM A HPV test methodology: Ruy rock This liqui d based ThinP rep(R ) pap test was scree chanelle with the use of an image guide d syste m. Not Available [facility] ([facility]) [address] [facility], [place], [address], 05/30/2021 03:07:10 05/25/2005/29/2021 IGP, APTIM A HPV HPV aptima Positi ve negati ve abnormal This nucle ic acid ampli ficat ion test detec ts fourt een high- risk HPV types (16,1 8,31, 33,35 ,39,4 5,51, 52,56 ,58,5 9,66, 68) witho ut diffe renti ation . Not Available [facility] ([facility]) [address] [facility], [place], [address], 05/30/2021 03:07:10 05/25/2005/30/2021 NUSWA B VG+, HSV atopobium vaginae Low - 0 score Not Available [facility] ([facility]) [address] [place], [address], 06/01/2021 16:11:09 05/25/2005/30/2021 NUSWA B VG+, HSV bvab 2 Low - 0 score Not Available [facility] ([facility]) [address] [place], [address], 06/01/2021 16:11:09 05/25/2005/30/2021 NUSWA B VG+, HSV [...] e itzel cteri stics deter mined by [facility]. It has not been clear ed or appro claus by the Food and Drug Admin istra tion. Not Available [facility] ([facility]) [address] [facility], [place], [address], 06/01/2021 16:11:09 05/25/2005/30/2021 NUSWA B VG+, HSV justin albicans, YISSEL Negati ve negati ve Not Available [facility] ([facility]) [address] [facility], [place], [address], 06/01/2021 16:11:09 05/25/2005/30/2021 NUSWA B VG+, HSV justin glabrata, YISSEL Negati ve negati ve Not Available [facility] ([facility]) [address] [facility], [place], [address], 06/01/2021 16:11:09 05/25/2005/31/2021 NUSWA B VG+, HSV hsv 1 YISSEL Negati ve negati ve Not Available [facility] ([facility]) [address] [place], [address], 06/01/2021 16:11:09 05/25/2005/31/2021 NUSWA B VG+, HSV hsv 2 YISSEL Negati ve negati ve Not Available [facility] ([facility]) [address] [place], [address], 06/01/2021 16:11:09 05/25/2006/01/2021 NUSWA B VG+, HSV trich vag by YISSEL Negati ve negati ve Not Available [facility] ([facility]) [address] [place], [address], 06/01/2021 16:11:09 05/25/20 21 06/01/2021 NUSWA B VG+, HSV chlamydia trachomatis, YISSEL Negati ve negati ve Not Available [facility] ([facility]) [address] [facility], [place], [address], 06/01/2021 16:11:09 05/25/2006/01/2021 NUSWA B VG+, HSV neisseria gonorrhoeae, YISSEL Negati ve negati ve Not Available [facility] ([facility]) [address] [facility], [place], [address], 06/01/2021 16:11:09 05/25/2005/27/2021 STREP GP B YISSEL strep gp B YISSEL Negati ve negati ve [facility] and Luisaeri can Congr ess of Obste trici ans [...] noted . Not Available [facility] ([facility]) [address] [facility], [place], [address], 06/01/2021 16:11:10 Result Notes None recorded. Problems No Known Problems Procedures Surgical History Date Name Laterality Status Provider Name and Address Organization Details Recorded Time 10/21/202 1 Date of Last Pap Smear completed Karine Iraheta MA [facility] 05/25/2021 10:50:34 1 Caesarean Section completed Carline Brown MA [facility] 01/29/2018 11:52:49 Imaging Results None recorded. Procedure Notes None recorded. Medical Equipment None Reported. Allergies Allergen ID Allergen Name Allergen Category Reaction Reaction Severity Criticality Documentation Date Start Date Code Code System Note Provider Name and Address Organization Details Recorded Time 718276 Tamiflu medicatio n rash Not available Not available 04/28/2019 84352 7 RxNorm Kory banuelos, [facility] 9 15:58:41 Medications Name Sig Start Date Stop Date [...] Updated DateTime 01/29/2018 152.4 cm 28.1 kg/m2 65546.3 g 118/80 mm[Hg] Carline Brown MA [facility] 01/29/2018 11:53:25 Date Recorded Body weight Body mass index (BMI) Body height Systolic And Diastolic Provider Name and Address Organization Details Last Updated DateTime 04/28/2019 08829.52 g 27.5 kg/m2 152.4 cm 118/72 mm[Hg] Kory Alarcon [facility] 04/28/2019 15:58:01 Date Recorded Body weight Systolic And Diastolic Provider Name and Address Organization Details Last Updated DateTime 05/25/2021 72733.49 g 122/70 mm[Hg] Karine Iraheta MA [facility] 05/25/2021 10:49:23 Date Recorded Body height Body mass index (BMI) Body weight Systolic And Diastolic Provider Name and Address Organization Details Last Updated DateTime 07/06/2019 152.4 cm 27.7 kg/m2 30922.12 g 120/72 mm[Hg] Karine Iraheta MA [facility] 07/06/2019 16:38:37 Social History Question Answer Notes LastModified by Organizat ion Details LastModified Time Tobacco Smoking Status Never Smoker [facility] 01/29/2018 11:50:53 Do You Have An Advance Directive? No Information not available 01/29/2018 Is Blood Transfusion Acceptable In An Emergency? Yes [email or web address] Information not available 01/29/2018 What Is Your Level Of Caffeine Consumption? Moderate [email or web address] Information not available 01/29/2018 How Much Tobacco Do You Chew? None [email or web address] Information not available 01/29/2018 What Type Of Diet Are You Following? REGULAR [email or web address] Information not available 01/29/2018 Which Illicit Or Recreational Drugs Have You Used? None [email or web address] Information not available 01/29/2018 Education 2 Year College [email or web address] Information not available 01/29/2018 Live Alone Or With Others? With Others [email or web address] Information not available 01/29/2018 What Was The Date Of Your Most Recent Tobacco Screening? 05/25/2021 Information not available 05/25/2021 How Many Children Do You Have? 1 [email or web address] Information not available 01/29/2018 Performs Monthly Self-breast Exam? No [email or web address] Information no t available 01/29/2018 Do You Use Protection During Sex? Always [email or web address] Information not available 01/29/2018 What Is Your Relationship Status? Information not available 01/29/2018 Seat Belts Used Routinely Yes [email or web address] Information not available 01/29/2018 Are You Sexually Active? Yes [email or web address] Information not available 01/29/2018 How Much Tobacco Do You Smoke? No Information not available 07/07/2019 General Stress Level Medium [email or web address] Information not available 01/29/2018 Do You Use Sunscreen Routinely? No [email or web address] Information not available 01/29/2018 On What Date Was Tobacco Cessation Counseling Provided? 05/25/2021 Information not available 05/25/2021 How Many Years Have You Smoked Tobacco? 0 Information not available 07/07/2019 Sex: Unknown Functional Status Question Answer Note LastModified by Organizat ion Details LastModified Time What is your level of alcohol consumption? Occasional Information not available 01/29/2018 Do you or have you ever used smokeless tobacco? Never used smokeless tobacco Information not available 07/07/2019 Are you currently employed? 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 Never used electronic cigarettes Information not available 07/07/2019 What is your exercise level? Occasional [email or web address] Information not available 01/29/2018 Mental Status None recorded. Family History Relationship Description Onset Age of this Age Resolved Age Notes LastModified by Organization Details LastModified Time Mother Heart disease diabet ic [email or web address] Not available 01/29/2018 11:50:46 Medical History Condition [...] Recorded Time HPV9 9 completed Not Available [facility] 08/22/2019 02:47:23 Influenza, split virus, quadrivalent, preservative 9 completed Not Available [facility] 08/22/2019 02:41:29 Past Encounters Encounter ID Performer Location Encounter Start Date Encounter Closed Date Diagnosis/Indication Diagnosis SNOMED-CT Code Diagnosis ICD10 Code Diagnosis IMO Codes Diagnosis Note [id number] Kory Alarcon MD [facility] (PLUG CUTTING MACHINE OPERATOR) [address] [place] [phone] 01/29/2018 10:55:47 01/29/2018 12:26:52 Gynecologic examination 83703368 Z01.419 Exposure t o sexually transmissible disorder 255981633 Z20.2 Family britt nning surveillance 396629674 Z30.09 [id number] Kory Alarcon MD [facility] (PLUG CUTTING MACHINE OPERATOR) [address] [place] [phone] 04/28/2019 15:15:31 04/29/2019 14:54:51 Gynecologic examination 88298846 Z01.419 Z11.51 Exposure t o sexually transmissible disorder 757294189 Z20.2 Vaginitis 87824091 N76.0 [id number] MD Sasha Mota (PLUG CUTTING MACHINE OPERATOR) [address] [place] [phone] 07/06/2019 16:15:50 07/07/2019 09:31:54 Chlamydial infection 766553481 A74.9 Family britt nning surveillance 676281929 Z30.09 HPV - Paulette n papillomavirus test positive 118842778 R87.457 [id number] Kory Alarcon MD [facility] (PLUG CUTTING MACHINE OPERATOR) [facility] [place] [address] 05/25/2021 10:36:56 05/29/2021 07:57:59 Gynecologic examination 54511509 Z01.[address] reptococcus carrier 5481525007 103 Z22.330 Chlamydial infection 105 630637 A74.9 Exposure t o sexually transmissible disorder 307850306 Z20.2 Generalize d anxiety disorder 74888051 F41.1 Health Concerns Section Related Observation LastModified by Organization Detai ls LastModified Time None Recorded Concern Status LastModified by Organization Details LastModified Time None Recorded Advance Directives Directive N: Payers Insurance Date Sequence Insurance Name Policy Number Policy [place] Covered Member ID [place] Member ID Guarantor Name 07/03/2019 1 [place] [id number] Nikki Freddyvishali [id number] Nikki Carlozzi 05/25/2021 1 *SELF PAY* Ni sa Cisnerosi 05/25/2021 SLIDING FEE SCHEDULE - DISCOUNT Nikki Carlozzi 05/25/2021 1 [place] [id number] Franklin Zuniga [id number] Nikki Hayesvishali Notes Date Note Type Note Provider Name and Address Organization Details Recorded Time 8 text/html Annual GYNReported by PatientHistoryFor history, patient reportsno change in interval historyandplanning in the near future.Genitourinary symptomsFor menstrual cycle, patient reportsnormal menses. For urinary symptoms, patient reportsno hematuriaandno incontinence. For vulva, patient reportsno genital lesion. For vagina, patient reportsnormal vaginal discharge.Breast symptomsFor breast, patient reportsno breast pain,no breast lump, andno nipple discharge.ContraceptionFo r current contraception, patient reportsmonogamous relationshipandcondoms.En docrine symptomsFor sexual complaints, patient reportssexual complaintsandpain during intercoursebut reportsnormal libido. For menopausal symptoms, patient reportsno menopausal symptomsandnormal vaginal lubrication.Psychological symptomsFor psychological symptoms, patient reportsno depression,no anxiety, andno pmdd.Preventative measuresFor preventive measures, patient reportsencourage self breast examination,encourage regular exercise,encourage no tobacco use,encourage regular mammograms starting age 40, andfollowed with q3 year pap smear and high risk hpv typing. 27y CF presents for WWE with dyspareunia. Kory ChristianDorianmariel banuelos [place] [facility] 01/29/2018 17:46:38 9 text/html problems-FemaleReported by PatientGU ProblemsFor associated symptoms, patient reportsno flank pain,no blood in the urine,no pain during urination,no vaginal discharge, andno urgency(vaginal itchiness and irritation, lower abdominal discomfort). 27y CF presents for lower abdominal discomfort and vaginal irritation/itchiness. Patient was treated for UTI in 12/2018 with three different antibiotics over the course of 3 months. Symptoms resolved in 02/2019, but returned yesterday. Pt endorses bladder irritation and vaginal itchiness and states it feels like she has a yeast infection. Denies hematuria and vaginal discharge. Last pap smear 01/29/2018 normal. Kory Dorian banuelos [facility] 04/28/2019 21:37:33 9 text/html problems-FemaleReported by PatientGU ProblemsFor context, patient reportssexually active,known exposure to std,prior history of stds, andunprotected intercoursebut reportsno sexual dysfunction,heterosexual, andvaginal intercourse. For onset/timing, patient reportsbetter. For associated symptoms, patient reportsno flank pain,no jaundice,no blood in the urine,no pain during urination,no vaginal discharge, andno urgency.ROS as noted in the HPI Patient is 28 yo WF here for KANA for chlamydia that she tested positive for on 04.28.19. She states she took all of her medication and is having no problems at this time. Kory Dorian banuelos [facility] 07/08/2019 15:10:41 1 text/html Annual GYNReported by PatientGenitourinary symptomsFor menstrual cycle, patient reportsnormal menses. For urinary symptoms, patient reportsno hematuriaandno incontinence. For vulva, patient reportsno genital lesion. For vagina, patient reportsnormal vaginal discharge.Breast symptomsFor breast, patient reportsno breast pain,no breast lump, andno nipple discharge.Endocrine symptomsFor sexual complaints, patient reportsno sexual complaints,no pain during intercourse, andnormal libido. For menopausal symptoms, patient reportsno menopausal symptomsandnormal vaginal lubrication.Psychological symptomsFor psychological symptoms, patient reportsanxietybut reportsno depression.ROS as noted in the HPI Patient is 30 yo WF presents for well-woman exam. Past medical history of HPV positive, history of chlamydial infection, GBS carrier. Kory Alarcon null, [place] [facility] 05/25/2021 13:41:25 OBGyn Episode Ob Episode Information Episode Created Date Number of Fetuses Patient Bloodtype Patient rh Status Prepregnancy Weight lbs Domestic Partner Domestic Partner Phone Father Name Ticketing Agent Status 01/30/20 18 1 CLOSED Fetus Data First Name Last Name Admitted to NICU Weight (g) Sex Living Outcome Pediatric Complications Fetus ID Race Codes Race Delivery Type 2778.25 1 F Full Term [id number] Adan Calculation Initial Adan Date Initial Exam [...]
[2025-05-27 13:46] LABS: BEDSIDEPREGUCG Negative (Negative)
--- NOTE | 2025-05-27 14:30 | P.PNAN_ITS ---
Anes - Initial Pre Proc Eval Procedure: Operation Date: 05/27/25 13:30 Proposed Procedures p Laparoscopic Cholecystectomy With Intraoperative Cholangiograms - Sary Silva MD Date/Time: 05/27/25 14:30 Surgeon: Sary Silva MD Pre Op Diagnosis: Elevated Liver Enzymes Patient Data Age: 34 Gender: F Height: 1.52 m Weight: 73 kg Last Vital Signs Temp 98.2 F 05/27/25 13:15 Pulse 87 05/27/25 13:15 Resp 16 05/27/25 13:15 BP 125/75 05/27/25 13:15 Pulse Ox 99 05/27/25 13:15 O2 Del Method Room Air 05/27/25 13:15 Allergies Allergy/AdvReac Type Severity Reaction Status Date / Time oseltamivir Allergy Unknown RASH Verified 05/27/25 13:24 Home Medications ?Medication ?Instructions ?Recorded ?Confirmed ?Type pantoprazole 40 mg tablet,delayed 40 mg PO QAM acid re flux 11/05/24 05/26/25 History release hydrocodone 5 mg-acetaminophen 325 1 tablet PO Q3H PRN Breakthrough 11/27/24 05/26/25 Rx mg tablet Pain Rated 4-6 10 days #25 t abs hydrocodone 5 mg-acetaminophen 325 1 tablet PO Q12H NM N pain #14 tabs 05/13/25 05/26/25 Rx mg tablet ondansetron 4 mg disintegrating 4 mg PO Q8H PRN nausea and 05/13/25 05/26/25 Rx tablet vomiting #14 tabs amoxicillin 875 mg-potassium 1 tablet PO BID #20 tabs 05/26/25 05/26/25 Rx clavulanate 125 mg tablet Laboratory Tests 05/27/25 05/27/25 10:10 13:20 WBC 7.3 K/mm3 (4.5-10.0) RBC 4.58 M/mm3 (4.2-5.4) Hgb 12.3 g/dL (12.0-15.0) Hct 38.7 % (37.0-47.0) MCV 84.5 fl (80-100) MCH 26.9 pg (26-34) MCHC 31.8 L g/dl (32-36) RDW 14.0 % (11.5-14.5) Plt Count 300 k/mm3 (150-375) MPV 10.7 H fl (7.4-10.4) Immature Gran % (Auto) 0.7 H % (0-0.5) Neut % (Auto) 59.8 % (45.5-73.1) Lymph % (Auto) 29.9 % (18.3-44.2) [place] % (Auto) 5.6 % (2.6-8.5) Eos % (Auto) 3.3 % (0-4.4) Baso % (Auto) 0.7 % (0.2-1.2) Lymph # (Auto) 2.18 K/mm3 (0.9-3.2) [place] # (Auto) 0.4 K/mm3 (0.1-0.6) Eos # (Auto) 0.2 K/mm3 (0-0.3) Baso # (Auto) 0.1 K/mm3 (0.0-0.1) Abs Immat Gran (auto) 0.05 H K/mm3 (0.00-0.031) Absolute Neuts (auto) 4.4 K/mm3 (1.3-6.7) Absolute Nucleated RBC 0.000 K/mm3 (0.0-0.012) Nucleated RBC % 0.0 % (0.0-0.2) PT 12.7 Seconds (11.1-14.7) INR 0.9 APTT 26.6 Seconds (22.3-36.8) Sodium 138 mmol/L (137-145) Potassium 3.7 mmol/L (3.4-5.0) Chloride 103 mmol/L (98-107) Carbon Dioxide 27 mmol/L (22-30) Anion Gap 8 mmol/L (4-12) BUN 12 mg/dL (7-17) Creatinine 0.69 L mg/dL (0.7-1.0) Estim Creat Clear Calc Not Reportable Estimated GFR > 60 (59 - ) Glucose 101 mg/dL (65-110) Calcium 9.1 mg/dL (8.4-10.2) Total Bilirubin 0.4 mg/dL (0.2-1.3) AST 259 H U/L (14-36) ALT 596 H U/L (6-35) Alkaline Phosphatase 240 H U/L (38-126) Total Protein 7.4 g/dL (6.3-8.2) Albumin 4.2 g/dL (3.5-5.1) Lipase 71 U/L (23-300) POC Urine HCG, Qual Negative (Negative) Blood Type O Positive Antibody Screen Negative Patient hx anesthesia problems: none Family hx anesthesia problems: none Results Review: All pre-operative results and documents have been reviewed as part of the pre- operative evaluation. [facility] Past Medical History Medical History GDM (gestational diabetes mellitus) Family History Family History Grandparent Cerebrovascular accident Grandparent Diabetes mellitus Other Congenital heart failure Social History Social History Smoking status: Never smoker Substance use: never Spiritual care concerns: No Anes - Eval Final PreProcedure Day of Procedure 05/27/25 14:30 Patient weight: obese Lungs: normal air movement Airway: Mallampati scale class II Neurological: alert and oriented Last oral intake: >/= 8 hours ASA classification: II Emergent: no Anesthetic plan: proceed Anesthesia type and monitoring: general ETT and standard monitoring Results Review: All pre-operative results and documents have been reviewed as part of the pre- operative evaluation. BMI 31, very active, working, walks 1-2 fos, no cp or sob. Informed Consent: The patient's anesthetic plan and its attendant risks and benefits were discussed with the patient/family/POA. Questions were solicited and answers provided to the satisfaction of the patient/family/POA.
[2025-05-27] MEDS: LACTATED RINGERS 1,000 ML 30 ML IV CONT ×2 (14:52→16:34)
--- NOTE | 2025-05-27 14:54 | WPDHPUPDATE1 ---
History and Physical Update Update Date/Time: 05/27/25 14:54 History and Physical has been reviewed, including an updated exam of the patient. There are NO changes in the patient's condition. Risks, benefits, and alternatives have been discussed and questions answered. Patient agrees to proceed with procedure.
[2025-05-27] MEDS: BUPIVACAINE/EPINEPHRINE 0.5% 50 ML VIAL 30 ML INFILTRATE (16:03)
--- NOTE | 2025-05-27 16:09 | S_PTH ---
PATIENT: Nikki Bhatia LOC: [id number] U#:[id number] AGE/SX: 34/F ROOM: 320 RE05/27/[address]: Sary Silva MD : 1990 BED: 01 DIS: 05/28/2025 SPEC #: [id number] RECD: 05/28/25 08:00 STATUS: ROSALIE REQ #: [id number] PETRONA: 05/27/25 16:[address]: Sary Silva DEPT: [facility] Surgical RECD BY: Mira Camarillo ENTERED: 05/28/25 08:01 SP TYPE: Surgical OTHR DR: WATER RESOURCE SPECIALIST PHYSICIAN Tissues: A - Gallbladder Procedures: Hematoxylin and Eosin Stain Gross and Microscopic Level 3
--- NOTE | 2025-05-27 16:32 | P.OP_ITS ---
Procedure Note - Detailed Date of Procedure 05/27/25 Pre-op Diagnosis acute cholecystitis, choledocholithiasis Post-op Diagnosis Same Procedure Performed laparoscopic cholecystectomy with interoperative cholangiogram Surgeon Sary Silva MD Customs Opener Verifier Packer Moore Anesthesia General and Local Indications 34-year-old female presenting to the office after emergency room visit with acute cholecystitis, cholelithiasis. Recheck of her labs was suggestive of choledocholithiasis with elevated liver enzymes. Findings Acute cholecystitis, interoperative cholangiogram with possible distal common bile duct stone/sludge that seemed to push through with flushing Description of Procedure The patient was taken to the operating room placed in the supine position. After adequate induction of general anesthesia, the patient was prepped and draped in normal sterile fashion. A time-out was then performed to verify the patient's identity as well as the procedure being performed. I then made a 5 mm incision in the infraumbilical region. Through this, a Veress needle was placed into the peritoneal cavity and CO2 gas was then insufflated. After adequate pneumoperitoneum was achieved, the Veress needle was removed and a 5 mm optiview trocar was placed through this incision under direct visualization. I then placed the laparoscope through this trocar site and under direct visualization placed a further 12 mm subxiphoid port as well as 2 additional 5 mm ports in the right upper abdomen. The gallbladder was then identified and was noted to be inflamed and distended. I was able to place a grasper at the dome of the gallbladder and this was retracted anterior and cephalad up over the liver. A 2nd retractor was then placed at the infundibulum and retracted laterally, this allowed visualization of the triangle of Calot. I then was able to visualize the cystic duct in its entirety from its proximal insertion into the gallbladder, to its distal junction with the common hepatic/common bile duct junction. At this point, I carefully skeletonized the proximal cystic duct with the [place] dissector. After adequate dissection, a proximal clip was placed and a duchotomy was made in the proximal cystic duct. The cholangiogram catheter was then placed through the 12 mm port site and fed distally into the cystic duct. After proper positioning was noted, we were able to easily flush saline. An interoperative cholangiogram was then obtained. There was noted to initially be a stone versus sludge in the distal common bile duct. After we flushed, this seemed to dissipate and the obstruction seemed to be resolved. There was good filling of the duodenum. I then clipped and transected the proximal cystic duct. Next I visualized the cystic artery. Again the artery was skeletonized, clipped, and transected. I then used the Bovie cautery to take down the peritoneal attachments of the gallbladder off the liver bed. This was somewhat difficult given the amount of inflammation in the posterior space. Once the gallbladder specimen was completely detached, an endo-pouch was placed through the 12 mm port site. I then placed the gallbladder specimen into the Endo pouch and removed the endo-pouch from the 12 mm port site. The specimen will now be sent to pathology for further review. I then copiously irrigated the right upper quadrant. Some mild oozing was noted in the liver bed and this was controlled with the bovie cautery. Hemostasis was noted in the liver bed, the clips were noted to be in good position on both the cystic duct stump and the cystic artery stump. No other pathology was noted in the right upper quadrant. I then moved the laparoscope to the subxiphoid port. No iatrogenic injury or other pathology was noted in the lower abdomen. I then closed the 12 mm trocar site under direct visualization using the Manuel cone and 0 Vicryl suture. At this point, the abdomen was desufflated and all ports removed. All port sites were then closed with 4.O Monocryl subcuticular sutures. Dermabond was placed on each incision. The patient tolerated the procedure well, was extubated in the operating room postoperative and will be transferred to the recovery room in stable condition Estimated Blood Loss 20 Drains No Packing No Pathology Yes Complications No immediate complications Condition Stable Disposition PACU [facility] Billing Surgery - Charge Forward: Surgery Billing
[2025-05-27] MEDS: fentaNYL CITRATE INJ (*CRX) 100 MCG/2 ML VIAL 25 MCG IV PUSH ×6 (16:40→17:35)
[2025-05-27] MEDS: ONDANSETRON INJ 4 MG/2 ML VIAL IV PUSH ×2 (16:50→18:30)
--- NOTE | 2025-05-27 16:50 | P.CONGI_ITS ---
Assessment and Plan Assessment and plan (1) Elevated liver enzymes: Code(s): R74.8 - Abnormal levels of other serum enzymes Status: Acute Assessment and Plan: The patient had a significant elevation of transaminases, clearly caused by the passage of a gallstone to the common bile duct. In fact, the intraoperative cholangiogram revealed a small stone that was able to be flushed to the duodenum with subsequent clearing of the common bile duct. Therefore, will sign off and the patent will continue care as per surgical team. (2) Acute calculous cholecystitis: Code(s): K80.00 - Calculus of gallbladder with acute cholecystitis without obstruction Status: Acute GI Consult Note Consult date/time: 05/27/25 16:50 Reason for consult: Elevated transaminases HPI: Nikki Bhatia is a 34 year old female who was admitted with cholelithiasis. At the moment I went to see the patient she was in the operating room having a laparoscopic cholecystectomy with intraoperative cholangiogram. Review of Systems 2 Review of Systems: All systems reviewed & are unremarkable except as noted in HPI and below PMFSH Past Medical History Medical History GDM (gestational diabetes mellitus) Family History Family History Grandparent Cerebrovascular accident Grandparent Diabetes mellitus Other Congenital heart failure Social History Social History Smoking status: Never smoker Substance use: never Spiritual care concerns: No Meds Home Medications and Allergies Home Medications ?Medication ?Instructions ?Recorded ?Confirmed ?Type pantoprazole 40 mg tablet,delayed 40 mg PO QAM acid re flux 11/05/24 05/26/25 History release hydrocodone 5 mg-acetaminophen 325 1 tablet PO Q3H PRN Breakthrough 11/27/24 05/26/25 Rx mg tablet Pain Rated 4-6 10 days #25 t abs hydrocodone 5 mg-acetaminophen 325 1 tablet PO Q12H IL N pain #14 tabs 05/13/25 05/26/25 Rx mg tablet ondansetron 4 mg disintegrating 4 mg PO Q8H PRN nausea and 05/13/25 05/26/25 Rx tablet vomiting #14 tabs amoxicillin 875 mg-potassium 1 tablet PO BID #20 tabs 05/26/25 05/26/25 Rx clavulanate 125 mg tablet hydrocodone 5 mg-acetaminophen 325 1 tablet PO Q6H PRN pain #20 tabs 05/27/25 Rx mg tablet Allergies Allergy/AdvReac Type Severity Reaction Status Date / Time oseltamivir Allergy Unknown RASH Verified 05/27/25 13:24 Vital Signs Vital Signs - 24 hr 05/27/25 10:10 05/27/25 13:15 Temperature 97.5 F L 98.2 F Pulse Rate 87 87 Respiratory Rate 14 16 Blood Pressure 121/75 125/75 Pulse Oximetry 97 99 Oxygen Delivery Room Air Exam 2 Narrative: Not performed (never got to see the patient). Results Labs 05/27/25 10:10 05/27/25 10:10 Labs: Short CBC 05/27/25 Range/Units 10:10 WBC 7.3 (4.5-10.0) K/mm3 Hgb 12.3 (12.0-15.0) g/dL Hct 38.7 (37.0-47.0) % Plt Count 300 (150-375) k/mm3 BMP 05/27/25 10:10 Sodium 138 Potassium 3.7 Chloride 103 Carbon Dioxide 27 BUN 12 Creatinine 0.69 L Glucose 101 Calcium 9.1 Liver Function 05/27/25 Range/Units 10:10 Total Bilirubin 0.4 (0.2-1.3) mg/dL AST 259 H (14-36) U/L ALT 596 H (6-35) U/L Alkaline Phosphatase 240 H (38-126) U/L Albumin 4.2 (3.5-5.1) g/dL
[2025-05-27] MEDS: HYDROcodone/acetaminophen (*CRX) 5-325 MG TABLET 1 TAB PO (18:17)
[2025-05-27] MEDS: FAMOTIDINE 20 MG/2 ML VIAL IV PUSH (20:59)
[2025-05-28 04:00] VITALS: BP 110/64; PULSE 91; RESP 14; TEMP 36.9; O2SAT 97
[2025-05-28 08:01] LABS: Hematocrit 39.3 % (37.0-47.0); Hemoglobin 12.3 g/dL (12.0-15.0); Mean Corpuscular HGB Conc 31.3 g/dl (32-36); Mean Corpuscular Hemoglobin 26.8 pg (26-34); Mean Corpuscular Volume 85.6 fl (80-100); Platelet Count Result 312 k/mm3 (150-375); Red Blood Count 4.59 M/mm3 (4.2-5.4); White Blood Count 8.9 K/mm3 (4.5-10.0)
[2025-05-28 08:18] LABS: Alanine Aminotransferase 416 U/L (6-35); Albumin Level 4.1 g/dL (3.5-5.1); Alkaline Phosphatase 198 U/L (38-126); Anion Gap 7 mmol/L (4-12); Aspartate Amino Transferase 120 U/L (14-36); Bilirubin,Total 0.6 mg/dL (0.2-1.3); Blood Urea Nitrogen 7 mg/dL (7-17); Calcium 8.8 mg/dL (8.4-10.2); Carbon Dioxide 26 mmol/L (22-30); Chloride 103 mmol/L (98-107); Estimated CRCL calculation 87 ml/min; Estimated Glomerular Filt Rate > 60; Glucose 96 mg/dL (65-110); Potassium 4.1 mmol/L (3.4-5.0); Sodium 136 mmol/L (137-145); Total Protein 7.2 g/dL (6.3-8.2)
[2025-05-28] MEDS: FAMOTIDINE 20 MG/2 ML VIAL IV PUSH (08:25)
[2025-05-28] MEDS: HYDROcodone/acetaminophen (*CRX) 5-325 MG TABLET 1 TAB PO ×2 (08:25→12:41)
--- NOTE | 2025-05-28 11:38 | PM.PNGS ---
Progress Note: A&P Assessment and Plan (1) Choledocholithiasis with acute cholecystitis with obstruction: Code(s): K80.43 - Calculus of bile duct with acute cholecystitis with obstruction <Ramos Moore, DO - Last Filed: 05/28/25 11:43> Status: Acute <Ramos Moore, DO - Last Filed: 05/28/25 11:43> Assessment and Plan: She is set up for discharge with p.o. analgesia, appreciate GI consultation, follow-up 2 weeks <Sary Silva MD - Last Filed: 05/28/25 11:47> Assessment and Plan: 34 yo female with acute cholecystitis, choledocholithiasis -POD #1 s/p lap saul with IOC. Passage of stone on IOC. LFTs trending down. GI consulted, no further interventions Plan - As needed pain and antinausea meds - Regular diet - Ambulate - GI consulted, appreciate recs and assistance, no further intervention - Ok to DC home today A&P discussed with Dr. Silva <Ramoscamille Moore, DO - Last Filed: 05/28/25 11:43> Subjective Subjective Date/Time Seen: 05/28/25 11:38 <Ramoscamille Moore DO - Last Filed: 05/28/25 11:43> Interval history: NAEON. POD #1 s/p laparoscopic cholecystectomy with IOC. Doing well postoperatively. Tolerating diet without pain, N/V. Incisions CDI. Ambulating. Urinating. Abdomen aTTP. LFTs trending down. Gastroenterology consulted, recommended no further interventions. <Ramos YanetThais Moore, DO - Last Filed: 05/28/25 11:43> Review of Systems Review of Systems: 12 point ROS negative except HPI <Ramos YanetThais Moore DO - Last Filed: 05/28/25 11:43> Exam Narrative: General: Awake, alert, NAD HEENT: NCAT, mucous membranes moist and pink Neck: No masses or swelling, no JVD Heart: RR, HDS Lungs: Symmetric expansion, no IWOB, on RA Abdomen: soft, aTTP, incisions CDI, ND Extremities: moves all, normal inspection Psych: normal mood, normal affect, normal judgment <Ramos YanetThais Moore DO - Last Filed: 05/28/25 11:43> Objective Data Vital Signs Vital Signs: Vital Signs - 24 hr 05/27/25 13:15 05/27/25 16:34 05/27/25 16:45 Temperature 98.2 F 97.6 F Pulse Rate 87 117 H 112 H Respiratory Rate 16 22 H 23 H Blood Pressure 125/75 137/73 138/75 Pulse Oximetry 99 98 95 Oxygen Delivery Room Air Simple Face Mask Room Air Oxygen Flow Rate 10 05/27/25 17:00 05/27/25 17:15 05/27/25 17:30 Temperature Pulse Rate 104 H 100 105 H Respiratory Rate 18 17 20 Blood Pressure 135/80 125/84 134/74 Pulse Oximetry 95 97 94 Oxygen Delivery Room Air Room Air Room Air Oxygen Flow Rate 05/27/25 17:45 05/27/25 18:10 05/27/25 18:25 Temperature 97.1 F L 97.2 F L Pulse Rate 107 H 105 H 109 H Respiratory Rate 20 14 14 Blood Pressure 131/82 130/75 120/68 Pulse Oximetry 99 97 95 Oxygen Delivery Nasal Cannula Oxygen Flow Rate 2 05/27/25 18:55 05/27/25 20:29 05/27/25 21:00 Temperature 97.2 F L 98.1 F Pulse Rate 108 H 109 H Respiratory Rate 14 14 Blood Pressure 131/70 124/78 Pulse Oximetry 99 99 Oxygen Delivery Room Air Oxygen Flow Rate 05/27/25 23:48 05/28/25 04:00 Temperature 98.2 F 98.4 F Pulse Rate 105 H 91 Respiratory Rate 14 14 Blood Pressure 121/68 110/64 Pulse Oximetry 97 97 Oxygen Delivery Oxygen Flow Rate <Ramos Moore, DO - Last Filed: 05/28/25 11:43> Intake/Output Intake/Output: Intake & Output 05/25/25 05/26/25 05/27/25 05/28/25 23:59 23:59 23:59 23:59 Intake Total 600 240 Balance 600 240 <Ramos Moore, DO - Last Filed: 05/28/25 11:43> Meds/Results Medications: Active Medications Generic Name Dose Route Start Last Admin Trade Name Freq PRN Reason Stop Dose Admin Hydrocodone Bitart/Acetaminophen 1 tab 05/27/25 17:55 05/28/25 08:25 Hydrocodone/Acetaminophen (*Crx) 5-325 Mg Tablet PO 1 tab Q4H PRN Administration Pain Rated 4-6 Famotidine 20 mg 05/27/25 21:00 05/28/25 08:25 Famotidine 20 Mg/2 Ml Vial IV PUSH 20 mg Q12HR SHERICE Administration Morphine Sulfate 2 mg 05/27/25 10:05 Morphine Sulfate (*Crx) 4 Mg/Ml Inj IV PUSH Q2H PRN Pain Rated 7-10 Ondansetron HCl 4 mg 05/27/25 10:05 05/27/25 18:30 Ondansetron Inj 4 Mg/2 Ml Vial IV PUSH 4 mg Q6H PRN Administration Nausea And Vomiting <Ramos Moore, DO - Last Filed: 05/28/25 11:43> Radiology Results: ITS Impressions Cholangiogram,Operative 05/27/25 16:19 IMPRESSION: 1. Transient filling defect at the distalmost common bile duct which could represent a gallstone or sludge and is not evident on the final images and if initially present, likely passed into the duodenum during the course of the injection. <Ramos Moore, DO - Last Filed: 05/28/25 11:43> Labs Labs: Laboratory Results - last 24 hr 05/27/25 05/28/25 13:20 07:49 WBC 8.9 RBC 4.59 Hgb 12.3 Hct 39.3 MCV 85.6 MCH 26.8 MCHC 31.3 L RDW 14.1 Plt Count 312 MPV 10.8 H Sodium 136 L Potassium 4.1 Chloride 103 Carbon Dioxide 26 Anion Gap 7 BUN 7 D Creatinine 0.70 Estim Creat Clear Calc 87 Estimated GFR > 60 Glucose 96 Calcium 8.8 Total Bilirubin 0.6 AST 120 H ALT 416 H Alkaline Phosphatase 198 H Total Protein 7.2 Albumin 4.1 POC Urine HCG, Qual Negative <Ramos Moore DO - Last Filed: 05/28/25 11:43>
--- NOTE | 2025-05-28 11:42 | P.DS_ITS ---
DS: Admitting Diagnosis Discharge Date 05/28/2025 Admitting Diagnosis acute cholecystitis, choledocholithiasis DS: Discharge Diagnosis Discharge Diagnosis (1) Choledocholithiasis with acute cholecystitis with obstruction: Code(s): K80.43 - Calculus of bile duct with acute cholecystitis with obstruction Status: Acute Assessment and Plan: status post laparoscopic cholecystectomy and intraoperative cholangiogram, we were able to flush small stone from distal common bile duct, LFTs continue to improve, home with routine postoperative instructions and p.o. analgesia, follow-up in 2 weeks DS: Summary Hospital Course Reason for hospitalization: acute cholecystitis, choledocholithiasis Hospital Course: The patient is a 34-year-old female that had been initially presented to the emergency department with acute cholecystitis, cholelithiasis. The patient was then seen in follow-up in my office and at that time she continued to have worsening symptoms. Outpatient laboratory was suggestive of choledocholithiasis. Given these findings, the patient was directly admitted to the surgical service. She was taken urgently to the operating room and laparoscopic cholecystectomy with interoperative cholangiogram was done at that time. Please see full operative report for details of that procedure. Postoperatively, the patient did well and was transferred back to the surgical floor. On postoperative day 1. , the patient reports her exam is much improved and she has been able to tolerate a regular diet. She reports her pain is well controlled with p.o. analgesia. Her labs are trending back towards normal at this time. Cholangiogram reviewed with the radiologist this suggests that the stone had flushed through with the cholangiogram. She will be discharged at this time with p.o. analgesia. She will follow-up with me in 2 weeks. Status at Discharge Functional status at discharge: independent ambulation Overall status at discharge: patient is progressing back to baseline Time Spent with Patient Time attestation: Total time spent providing and/or coordinating discharge services: Time spent: Less than 30 minutes Exam Const: General: cooperative, comfortable and no acute distress Resp: Auscultation: clear to auscultation bilaterally Cardio: Rate: regular rate Rhythm: regular rhythm GI: Inspection: normal to inspection, non-distended and incision GI Palp: Yes abdominal tenderness DS: Data Data Completed and Pending Pending studies at discharge: Pending at discharge 05/27/25 16:09 Surgical [PTH] Routine Labs on day of discharge: Labs from last 24 hours 05/28/25 05/27/25 07:49 13:20 WBC 8.9 RBC 4.59 Hgb 12.3 Hct 39.3 MCV 85.6 MCH 26.8 MCHC 31.3 L RDW 14.1 Plt Count 312 MPV 10.8 H Sodium 136 L Potassium 4.1 Chloride 103 Carbon Dioxide 26 Anion Gap 7 BUN 7 D Creatinine 0.70 Estim Creat Clear Calc 87 Estimated GFR > 60 Glucose 96 Calcium 8.8 Total Bilirubin 0.6 AST 120 H ALT 416 H Alkaline Phosphatase 198 H Total Protein 7.2 Albumin 4.1 POC Urine HCG, Qual Negative Discharge Plan Discharge Attending physician on discharge: Sary Silva Discharging Clinician: Sary Silva Anticipated Discharge Date/Time: 05/28/25 11:42 Patient Disposition: Home Activity: as tolerated Diet: as tolerated Wound Care Instructions: incision open to air Discharge Instructions: DISCHARGE INSTRUCTION SHEET FOR HERNIA, GALLBLADDER AND APPENDIX SURGERIES DR. SILVA PATIENT TO TAKE HOME 1. May shower in 24 hours, no soaking in bath x 2weeks. 2. Call office for: * Wound increasingly painful or bleeding * Vomiting * Fever of greater than 101 degrees 3. If no bowel movement for three days, take 1 oz. (30 ml) Milk of Magnesia or MiraLax 17g 1 to 2 times daily. 4. No heavy lifting > 10-15 pounds x 6 weeks for hernia repairs and 2 weeks for laparoscopic cholecystectomy or appendectomy. 5. No driving for 3 days or while taking narcotic pain medications. 6. Ice to surgical site for 48 hours (30 min on, then 30 min off). 7. Up walking 10-30 minutes three times per day. 8. Resume previous home medications. 9. Follow-up 10-14 days in office for wound check or as previously scheduled. ([id number]) 10. Oral pain medications prescription to be sent to pharmacy. Take Tylenol 500mg every 6 hours and Ibuprofen 600mg every 6 hours for the first 2 days, then as needed. 11. NUTRITION: Start out by drinking fluids and increase your diet as tolerated. If you experience nausea, try dry toast, crackers, and 7-UP. If nausea or vomiting persists, contact your surgeon?s office. 12. Gallbladders-Low Fat Diet for 2 weeks (send care note of low fat diet) 13. Inguinal Hernias-wear scrotal support for 48 hours 14. Abdominal Hernias-if sent home with abdominal binder, wear for the first 2 weeks (may remove to shower or at night to sleep). Revised 08/2020 Patient Instructions: Antibiotic Form Patient Language: Nepalese Stand Alone Forms: General Discharge Information Follow-up/Referrals: Sary Silva MD [Physician, General Surgery] - 2 Weeks Discharge Medications: New hydrocodone-acetaminophen 5-325 mg tablet 1 tablet PO Q6H PRN (Reason: pain) Qty: 20 0RF Continued pantoprazole 40 mg tablet,delayed release (DR/EC) 40 mg PO QAM ondansetron 4 mg tablet,disintegrating 4 mg PO Q8H PRN (Reason: nausea and vomiting) Qty: 14 0RF Discontinued amoxicillin-pot clavulanate 875-125 mg tablet 1 tablet PO BID Qty: 20 0RF hydrocodone-acetaminophen 5-325 mg Tablet 1 tablet PO Q3H PRN (Reason: Breakthrough Pain Rated 4-6) 10 Days Qty: 25 0RF hydrocodone-acetaminophen 5-325 mg tablet 1 tablet PO Q12H PRN (Reason: pain) Qty: 14 0RF Date of admission: 05/27/25 10:05 Primary Care Provider: PHYSICIAN,SCORER HELPER Admitting Provider: Sary Silva Attending physician on admission: Sary Silva Condition: Stable
== END 2025-05-28 12:47 | disposition home or self-care (01) ==
PROVIDERS: Nurse Practitioner Family; Admitting Provider Surgery; Visit Provider Surgery
PROC: 0FT44ZZ Resection of Gallbladder, Percutaneous Endoscopic Approach (ICD-10-PCS; CPT 47562; principal; 2025-05-27 13:30)
DX: K80.63 Calculus of gallbladder and bile duct with acute cholecystitis with obstruction (principal); R74.8 Abnormal levels of other serum enzymes; Z79.891 Long term (current) use of opiate analgesic; Z86.32 Personal history of gestational diabetes; Z83.3 Family history of diabetes mellitus; Z82.3 Family history of stroke; Z82.49 Family history of ischemic heart disease and other diseases of the circulatory system
CPT/HCPCS: 47563; 36415; 74300; 80053; 83690; 85025; 85027; 85610; 85730; 86850; 86900; 86901; 88304; A9270; G0378; J1171; J2003; J2250; J2405; J2543; J2704; J3010; J7030; J7120; Q9966